=== PATIENT | male | born 1945 | race Caucasian/White ===

== ENCOUNTER 2019-01-09 04:40 | Inpatient (IN) ==
--- OUTSIDE RECORDS SUMMARY | 2019-01-09 04:44 | External Medical Summary | Continuity of Care Document ---
:1945 Author Name Sara Shin, Provider Address Unavailable Unavailable , Care Team Providers Name Role Phone Tee Pryor [email or web address] PCP, UNKNOWN Unavailable Unavailable Problems Active medical history not documented Allergies and Adverse Reactions Allergy history not documented Medications Medications not documented Procedures Procedures not documented Immunizations Immunizations not documented Plan of Treatment Planned Observations Planned Goals not documented Results No Known Results Results not documented
[2019-01-09] MEDS ORDERED: ALBUT/IPRATROP 3MG/0.5MG NEB 3 ML VIAL NEB STA (04:51)
--- NOTE | 2019-01-09 05:09 | Emergency Department Note ---
ED Visit Note This is a 73-year-old male patient who presents to the emergency department with chest pain over the past 3-4 hours. The patient presents with moderate shortness of breath and audible rales. The patient is currently receiving nebulizer treatment. He admits that he feels much more comfortable. Vital signs are stable. Laboratory studies are currently pending. The patient was seen in conjunction with Jakob Leigh PA-C. The patient will be further evaluated for inpatient care. .
[2019-01-09 05:21] LABS: Basophils # (auto) 0.02 K/uL (0-0.2); Basophils % (auto) 0.2 %; Eosinophils # (auto) 0.08 K/uL (0-0.5); Hematocrit (blood only) 36.4 % (42-52); Hemoglobin 12.6 g/dL (14.0-18.0); Immature Granulocytes # (auto) 0.02 K/uL (0.00-0.02); Immature Granulocytes % (auto) 0.2 %; Lymphocytes # (auto) 1.92 K/uL (1.2-3.4); Lymphocytes % (auto) 22.8 %; Mean Corpuscular Hemoglobin 31.3 pg (25-34); Mean Corpuscular Hgb Conc 34.6 g/dL (32-36); Mean Corpuscular Volume 90.3 fL (80-100); Mean Platelet Volume 9.2 fL (7.4-10.4); Monocytes # (auto) 0.61 K/uL (0.11-0.59); Monocytes % (auto) 7.2 %; Neutrophils # (auto) 5.77 K/uL (1.4-6.5); Neutrophils % (auto) 68.6 %; Platelet Count 233 K/uL (130-400); RDW Coefficient of Variation 13.6 % (11.5-14.5); RDW Standard Deviation 45.2 fL (36.4-46.3); Red Blood Count 4.03 M/uL (4.7-6.1); White Blood Count 8.42 K/uL (4.8-10.8)
--- NOTE | 2019-01-09 05:22 | Emergency Department Note ---
History of Present Illness General Chief complaint: Chest Pain Time Seen by Provider: 01/09/19 04:43 History of Present Illness Maximum Pain Intensity: 4 This is a 73-year-old male presenting to the emergency department with lower chest pain symptoms for the past 3 to 4 hours. The patient states his symptoms began when he was sleeping, and awoke him from sleep. The patient does not re port recent fevers or chills. He is a 2-1/2 pack/day smoker and is without new shortness of breath. He does not report any swelling or weight gain. The patient does arrive via EMS, and has been given 3 to 24 mg aspirin as well as 4 nitroglycerin. The patient evidently had improvement of his initial blood pressure that was over 200 systolic prehospital, but has not had significant improvement of his chest pain. He does describe this almost like a band in the upper abdomen, and rates his current discomfort a 4/10. It was originally a 5/10. He does not report recent travel history or known exposure to illness. The patient has not followed with his primary care physician for several years and is not on any current medications. Home Medications Home Medications Medication Instructions Recorded Confirmed Type [id number]-[id number]-lycopen-lutein 1 tab PO DAILY 01/09/19 01/09/19 History [Centrum Silver] Allergies Allergy/AdvReac Type Severity Reaction Status Date / Time No Known Allergies Allergy Verified 01/09/19 04:57 Past Med/Surg History Medical History Pancreatic lesion Emphysema of lung Portal hypertensive gastropathy (Chronic) History of gastritis (Chronic) History of ETOH abuse (Chronic) Tobacco use disorder (Chronic) Compression fx, lumbar spine (Chronic) Hyponatremia (Acute) NS being administered. Following BMP. Surgical History History of hernia repair (Chronic) Family History Father Colorectal cancer Mother Hypertension Breast cancer Social History Preferred Language: Peruvian Communication Ability: Effective Beliefs That Will Affect Care: None Current Living Situation: Family Current Living Situation Comment: lives with dtr Other Information That Helps Us Care for You: No Feels Safe at Home: Yes Safety Concerns: Feels Safe At This Time Smoking Status: Heavy tobacco smoker Tobacco Type: cigarettes ; Age Started Using Tobacco: 15 ; packs per day: 1.5 ; Years Smoked: 50 ; Cigarettes Per Day: 30-40 ; Tobacco Cessation Education Requested by Patient: No Hx Alcohol Use: Yes Hx Substance Use: No Review of Systems A total of 10 systems reviewed and were otherwise negative Physical Exam Vital Signs Vital Signs - 24 hr 01/09/19 04:40 01/09/19 05:01 01/09/19 05:41 Temperature 36.7 C Temperature Source Oral Sepsis Recent Fever Within 48 Hours No Sepsis New/Unexplained Change in Mental Status No Sepsis Action Taken by Nursing No Action Required Pulse Rate 97 H Pulse Rate [Right Radial] 89 90 Pulse Rhythm [Right Radial] Pulse Strength [Right Radial] Respiratory Rate 25 H 20 22 Respiratory Effort / Characteristics Non-Labored Spontaneous Respiratory Depth Respiratory Pattern Blood Pressure 109/88 Blood Pressure [Left Arm] Blood Pressure [Right Arm] 92/68 L Blood Pressure Mean 95 Blood Pressure Mean [Left Arm] Blood Pressure Mean [Right Arm] 76 Blood Pressure Position [Left Arm] Blood Pressure Position [Right Arm] Pulse Oximetry 97 95 92 Oxygen Delivery Method Room Air Room Air Room Air 01/09/19 06:53 01/09/19 08:35 01/09/19 09:07 Temperature Temperature Source Sepsis Recent Fever Within 48 Hours Sepsis New/Unexplained Change in Mental Status Sepsis Action Taken by Nursing Pulse Rate Pulse Rate [Right Radial] 88 86 85 Pulse Rhythm [Right Radial] Pulse Strength [Right Radial] Respiratory Rate 20 18 18 Respiratory Effort / Characteristics Non-Labored Spontaneous Respiratory Depth Respiratory Pattern Blood Pressure Blood Pressure [Left Arm] Blood Pressure [Right Arm] 137/80 146/78 H 129/91 Blood Pressure Mean Blood Pressure Mean [Left Arm] Blood Pressure Mean [Right Arm] 99 100 103 Blood Pressure Position [Left Arm] Blood Pressure Position [Right Arm] Lying Lying Pulse Oximetry 94 96 94 Oxygen Delivery Method Room Air Room Air Room Air 01/09/19 09:09 01/09/19 09:57 01/09/19 10:24 Temperature 36.6 C Temperature Source Oral Sepsis Recent Fever Within 48 Hours Sepsis New/Unexplained Change in Mental Status Sepsis Action Taken by Nursing Pulse Rate 89 Pulse Rate [Right Radial] 88 Pulse Rhythm [Right Radial] Regular Pulse Strength [Right Radial] Normal Respiratory Rate 22 24 Respiratory Effort / Characteristics Non-Labored Spontaneous Non-Labored Spontaneous SOB on Exertion Respiratory Depth Normal Normal Respiratory Pattern Regular Regular Blood Pressure 144/98 H Blood Pressure [Left Arm] Blood Pressure [Right Arm] 154/88 H Blood Pressure Mean Blood Pressure Mean [Left Arm] Blood Pressure Mean [Right Arm] 110 Blood Pressure Position [Left Arm] Blood Pressure Position [Right Arm] Lying Pulse Oximetry 95 93 Oxygen Delivery Method Room Air Room Air Room Air 01/09/19 11:05 01/09/19 14:58 01/09/19 15:09 Temperature 36.7 C Temperature Source Oral Sepsis Recent Fever Within 48 Hours Sepsis New/Unexplained Change in Mental Status Sepsis Action Taken by Nursing Pulse Rate Pulse Rate [Right Radial] 78 88 94 H Pulse Rhythm [Right Radial] Pulse Strength [Right Radial] Respiratory Rate 18 20 22 Respiratory Effort / Characteristics Non-Labored Spontaneous Non-Labored Spontaneous Respiratory Depth Respiratory Pattern Blood Pressure Blood Pressure [Left Arm] 113/71 Blood Pressure [Right Arm] Blood Pressure Mean Blood Pressure Mean [Left Arm] 85 Blood Pressure Mean [Right Arm] Blood Pressure Position [Left Arm] Lying Blood Pressure Position [Right Arm] Pulse Oximetry 93 93 99 Oxygen Delivery Method Room Air Room Air Room Air 01/09/19 19:10 01/09/19 19:17 Temperature 36.7 C Temperature Source Oral Sepsis Recent Fever Within 48 Hours Sepsis New/Unexplained Change in Mental Status Sepsis Action Taken by Nursing Pulse Rate 86 Pulse Rate [Right Radial] 84 Pulse Rhythm [Right Radial] Pulse Strength [Right Radial] Respiratory Rate 18 Respiratory Effort / Characteristics Non-Labored Respiratory Depth Normal Respiratory Pattern Regular Blood Pressure Blood Pressure [Left Arm] Blood Pressure [Right Arm] 161/84 H Blood Pressure Mean Blood Pressure Mean [Left Arm] Blood Pressure Mean [Right Arm] 109 Blood Pressure Position [Left Arm] Blood Pressure Position [Right Arm] Semi-fowlers Pulse Oximetry 96 Oxygen Delivery Method Room Air VITALS: Vitals are noted on the nurse's note and reviewed by myself. Vital signs stable. GENERAL: White male who is audible rails upon my entering into the room. He appears older than his stated age. HEAD: Normocephalic atraumatic. MOUTH: Mucous membranes moist. Tonsils are not enlarged. Pharynx without erythema, blood, or exudate. Uvula midline. Airway patent. NECK: Supple without nuchal rigidity. No lymphadenopathy. No thyromegaly. Cervical spine is nontender. HEART: Regular rate and rhythm without murmurs gallops or rubs. LUNGS: Distant breath sounds with crackles throughout. ABDOMEN: Positive normal bowel sounds x 4. Soft with mild epigastric tenderness MUSCULOSKELETAL: No muscle atrophy, erythema, or edema noted. Full range of m otion in all extremities. NEURO: Patient was alert and oriented to person place and time. CN II through XII grossly intact. Course Administered Medications Acetaminophen (Tylenol) 650 mg PO Q4H PRN PRN Reason: Pain or Fever Stop: 02/08/19 10:41 Last Admin: 01/09/19 15:34 Dose: 650 mg Documented by: [id number] Albuterol (Duoneb) 3 ml NEB Q4R JUSTYNA Stop: 02/08/19 10:59 Last Admin: 01/09/19 22:29 Dose: Not Given Documented by: [id number] Admin: 01/09/19 19:59 Dose: Not Given Documented by: [id number] Admin: 01/09/19 14:58 Dose: 3 ml Documented by: [id number] Admin: 01/09/19 11:05 Dose: 3 ml Documented by: [id number] Sodium Chloride (Nss 1000ml) 1,000 mls @ 110 mls/hr IV .Q9H6M JUSTYNA Stop: 02/08/19 10:41 Last Admin: 01/09/19 20:34 Dose: 100 mls/hr Documented by: [id number] Infusion: 01/09/19 20:34 Dose: 100 mls/hr Documented by: [id number] Admin: 01/09/19 11:40 Dose: 100 mls/hr Documented by: [id number] Lidocaine (Lidoderm 5%) 1 patch TD QAM JUSTYNA Stop: 02/08/19 11:44 Last Admin: 01/09/19 11:45 Dose: 1 patch Documented by: [id number] Miscellaneous (Remove Nicoderm Patch) 1 ea N/A HS JUSTYNA Stop: 02/08/19 20:59 Last Admin: 01/09/19 20:26 Dose: 1 ea Documented by: [id number] Miscellaneous (Remove Lidoderm Patch) 1 ea N/A DAILY@2100 JUSTYNA Stop: 02/08/19 20:59 Last Admin: 01/09/19 20:28 Dose: Not Given Documented by: [id number] Nicotine (Nicoderm Cq) 21 mg TD QAM JUSTYNA Stop: 02/08/19 10:41 Last Admin: 01/09/19 13:37 Dose: 21 mg Documented by: [id number] Cosigned by: [id number] Admin: 01/09/19 11:34 Dose: Not Given Documented by: [id number] Discontinued Medications Albuterol (Duoneb) 3 ml NEB NOW STA Stop: 01/09/19 04:52 Last Admin: 01/09/19 04:59 Dose: 3 ml Documented by: [id number] Acetaminophen (Ofirmev) 1,000 mg in 100 mls @ 400 mls/hr IV NOW STA Stop: 01/09/19 10:05 Last Admin: 01/09/19 10:57 Dose: Not Given Documented by: [id number] Ioversol (Optiray 320 125ml) 125 ml IV ONCE PRN PRN Reason: Interaction Checking Stop: 01/13/19 06:34 Last Admin: 01/09/19 06:35 Dose: 118 ml Documented by: [id number] Ioversol (Optiray 320 100ml) 93 ml IV ONCE PRN PRN Reason: Interaction Checking Stop: 01/13/19 07:35 Last Admin: 01/09/19 07:37 Dose: 93 ml Documented by: [id number] Lidocaine (Lidoderm 5%) 1 patch TD [facility] Stop: 02/08/19 10:41 Last Admin: 01/09/19 11:51 Dose: Not Given Documented by: [id number] Medical Decision Making Differential Diagnosis Differential diagnosis: Etiologies such as biliary colic, cholecystitis, hepatitis, pancreatitis, cardiac disease, pancreatitis, gastritis, peptic ulcer disease, appendicitis, cystitis, diverticulitis, mesenteric ischemia, inflammatory bowel disease, ileus, bowel obstruction, testicular/adnexal torsion, aortic pathology, shingles, as well as others were considered Laboratory Data Result diagrams: 01/09/19 04:48 01/09/19 04:48 Lab Results 01/09/19 01/09/19 01/09/19 Range/Units 04:48 04:48 04:48 WBC 8.42 (4.8-10.8) K/uL RBC 4.03 L (4.7-6.1) M/uL Hgb 12.6 L (14.0-18.0) g/dL Hct 36.4 L (42-52) % MCV 90.3 (80-100) fL MCH 31.3 (25-34) pg MCHC 34.6 (32-36) g/dL RDW Std Deviation 45.2 (36.4-46.3) fL RDW Coeff of Marga 13.6 (11.5-14.5) % Plt Count 233 (130-400) K/uL MPV 9.2 (7.4-10.4) fL Immature Gran % (Auto) 0.2 % Neut % (Auto) 68.6 % Lymph % (Auto) 22.8 % [place] % (Auto) 7.2 % Eos % (Auto) 1.0 % Baso % (Auto) 0.2 % Immature Gran # (Auto) 0.02 (0.00-0.02) K/uL Neut # (Auto) 5.77 (1.4-6.5) K/uL Lymph # (Auto) 1.92 (1.2-3.4) K/uL [place] # (Auto) 0.61 H (0.11-0.59) K/uL Eos # (Auto) 0.08 (0-0.5) K/uL Baso # (Auto) 0.02 (0-0.2) K/uL PT Cancelled INR Cancelled APTT Cancelled PTT Ratio Cancelled VBG pH (7.36-7.41) VBG pCO2 (38-50) mmHg VBG pO2 mmHg VBG HCO3 mmol/L VBG O2 Saturation % VBG Base Excess mEq/L Barometric Pressure mm/Hg Sodium 131 L (136-145) mmol/L Potassium 4.5 (3.5-5.1) mmol/L Chloride 95 L (98-107) mmol/L Carbon Dioxide 29 (21-32) mmol/L Anion Gap 7.0 (3-11) BUN 14 (7-18) mg/dl Creatinine 1.29 (0.6-1.4) mg/dl Est Cr Clr Drug Dosing 59.3 ml/min Est GFR ( Amer) 63.3 Est GFR (Non-Af Amer) 54.6 BUN/Creatinine Ratio 11.0 (10-20) Glucose 91 (70-99) mg/dl Calcium 8.8 (8.5-10.1) mg/dl Magnesium 2.3 (1.8-2.4) mg/dl Total Bilirubin 0.4 (0.2-1) mg/dl AST 13 L (15-37) U/L ALT 14 (12-78) U/L Alkaline Phosphatase 92 (45-117) U/L Troponin I < 0.015 (0-0.045) ng/ml NT-Pro-B Natriuret Pep 482 (0-900) pg/ml Total Protein 7.3 (6.4-8.2) gm/dl Albumin 3.6 (3.4-5.0) gm/dl Globulin 3.7 (2.5-4.0) gm/dl Albumin/Globulin Ratio 1.0 (0.9-2) Lipase 168 (73-393) U/L Procalcitonin (0-0.5) ng/ml TSH 2.310 (0.300-4.500) uIu/ml Urine Color Urine Appearance (Clear) Urine pH (4.5-7.5) Ur Specific [place] (1.000-1.030) Urine Protein (Negative) Urine Glucose (UA) (Negative) Urine Ketones (Negative) Urine Blood (Negative) Urine Nitrite (Negative) Urine Bilirubin (Negative) Urine Urobilinogen (Negative) Ur Leukocyte Esterase (Negative) Ethyl Alcohol mg/dL (0-3) mg/dl 01/09/19 01/09/19 01/09/19 Range/Units 04:48 04:59 04:59 WBC (4.8-10.8) K/uL RBC (4.7-6.1) M/uL Hgb (14.0-18.0) g/dL Hct (42-52) % MCV (80-100) fL MCH (25-34) pg MCHC (32-36) g/dL RDW Std Deviation (36.4-46.3) fL RDW Coeff of Marga (11.5-14.5) % Plt Count (130-400) K/uL MPV (7.4-10.4) fL Immature Gran % (Auto) % Neut % (Auto) % Lymph % (Auto) % [place] % (Auto) % Eos % (Auto) % Baso % (Auto) % Immature Gran # (Auto) (0.00-0.02) K/uL Neut # (Auto) (1.4-6.5) K/uL Lymph # (Auto) (1.2-3.4) K/uL [place] # (Auto) (0.11-0.59) K/uL Eos # (Auto) (0-0.5) K/uL Baso # (Auto) (0-0.2) K/uL PT 10.1 INR 1.0 APTT 31.0 PTT Ratio 1.1 VBG pH 7.36 (7.36-7.41) VBG pCO2 49 (38-50) mmHg VBG pO2 25 mmHg VBG HCO3 27 mmol/L VBG O2 Saturation < 60.0 % VBG Base Excess 1.0 mEq/L Barometric Pressure 734.9 mm/Hg Sodium (136-145) mmol/L Potassium (3.5-5.1) mmol/L Chloride (98-107) mmol/L Carbon Dioxide (21-32) mmol/L Anion Gap (3-11) BUN (7-18) mg/dl Creatinine (0.6-1.4) mg/dl Est Cr Clr Drug Dosing ml/min Est GFR ( Amer) Est GFR (Non-Af Amer) BUN/Creatinine Ratio (10-20) Glucose (70-99) mg/dl Calcium (8.5-10.1) mg/dl Magnesium (1.8-2.4) mg/dl Total Bilirubin (0.2-1) mg/dl AST (15-37) U/L ALT (12-78) U/L Alkaline Phosphatase (45-117) U/L Troponin I (0-0.045) ng/ml NT-Pro-B Natriuret Pep (0-900) pg/ml Total Protein (6.4-8.2) gm/dl Albumin (3.4-5.0) gm/dl Globulin (2.5-4.0) gm/dl Albumin/Globulin Ratio (0.9-2) Lipase (73-393) U/L Procalcitonin (0-0.5) ng/ml TSH (0.300-4.500) uIu/ml Urine Color Urine Appearance (Clear) Urine pH (4.5-7.5) Ur Specific [place] (1.000-1.030) Urine Protein (Negative) Urine Glucose (UA) (Negative) Urine Ketones (Negative) Urine Blood (Negative) Urine Nitrite (Negative) Urine Bilirubin (Negative) Urine Urobilinogen (Negative) Ur Leukocyte Esterase (Negative) Ethyl Alcohol mg/dL < 3.0 (0-3) mg/dl 01/09/19 01/09/19 01/09/19 Range/Units 07:00 08:00 11:04 WBC (4.8-10.8) K/uL RBC (4.7-6.1) M/uL Hgb (14.0-18.0) g/dL Hct (42-52) % MCV (80-100) fL MCH (25-34) pg MCHC (32-36) g/dL RDW Std Deviation (36.4-46.3) fL RDW Coeff of Marga (11.5-14.5) % Plt Count (130-400) K/uL MPV (7.4-10.4) fL Immature Gran % (Auto) % Neut % (Auto) % Lymph % (Auto) % [place] % (Auto) % Eos % (Auto) % Baso % (Auto) % Immature Gran # (Auto) (0.00-0.02) K/uL Neut # (Auto) (1.4-6.5) K/uL Lymph # (Auto) (1.2-3.4) K/uL [place] # (Auto) (0.11-0.59) K/uL Eos # (Auto) (0-0.5) K/uL Baso # (Auto) (0-0.2) K/uL PT INR APTT PTT Ratio VBG pH (7.36-7.41) VBG pCO2 (38-50) mmHg VBG pO2 mmHg VBG HCO3 mmol/L VBG O2 Saturation % VBG Base Excess mEq/L Barometric Pressure mm/Hg Sodium (136-145) mmol/L Potassium (3.5-5.1) mmol/L Chloride (98-107) mmol/L Carbon Dioxide (21-32) mmol/L Anion Gap (3-11) BUN (7-18) mg/dl Creatinine (0.6-1.4) mg/dl Est Cr Clr Drug Dosing ml/min Est GFR ( Amer) Est GFR (Non-Af Amer) BUN/Creatinine Ratio (10-20) Glucose (70-99) mg/dl Calcium (8.5-10.1) mg/dl Magnesium (1.8-2.4) mg/dl Total Bilirubin (0.2-1) mg/dl AST (15-37) U/L ALT (12-78) U/L Alkaline Phosphatase (45-117) U/L Troponin I < 0.015 (0-0.045) ng/ml NT-Pro-B Natriuret Pep (0-900) pg/ml Total Protein (6.4-8.2) gm/dl Albumin (3.4-5.0) gm/dl Globulin (2.5-4.0) gm/dl Albumin/Globulin Ratio (0.9-2) Lipase (73-393) U/L Procalcitonin < 0.05 (0-0.5) ng/ml TSH (0.300-4.500) uIu/ml Urine Color Yellow Urine Appearance Clear (Clear) Urine pH 5.5 (4.5-7.5) Ur Specific [place] > 1.045 H (1.000-1.030) Urine Protein Negative (Negative) Urine Glucose (UA) Negative (Negative) Urine Ketones Negative (Negative) Urine Blood Negative (Negative) Urine Nitrite Negative (Negative) Urine Bilirubin Negative (Negative) Urine Urobilinogen Negative (Negative) Ur Leukocyte Esterase Negative (Negative) Ethyl Alcohol mg/dL (0-3) mg/dl 01/09/19 Range/Units 16:47 WBC (4.8-10.8) K/uL RBC (4.7-6.1) M/uL Hgb (14.0-18.0) g/dL Hct (42-52) % MCV (80-100) fL MCH (25-34) pg MCHC (32-36) g/dL RDW Std Deviation (36.4-46.3) fL RDW Coeff of Marga (11.5-14.5) % Plt Count (130-400) K/uL MPV (7.4-10.4) fL Immature Gran % (Auto) % Neut % (Auto) % Lymph % (Auto) % [place] % (Auto) % Eos % (Auto) % Baso % (Auto) % Immature Gran # (Auto) (0.00-0.02) K/uL Neut # (Auto) (1.4-6.5) K/uL Lymph # (Auto) (1.2-3.4) K/uL [place] # (Auto) (0.11-0.59) K/uL Eos # (Auto) (0-0.5) K/uL Baso # (Auto) (0-0.2) K/uL PT INR APTT PTT Ratio VBG pH (7.36-7.41) VBG pCO2 (38-50) mmHg VBG pO2 mmHg VBG HCO3 mmol/L VBG O2 Saturation % VBG Base Excess mEq/L Barometric Pressure mm/Hg Sodium (136-145) mmol/L Potassium (3.5-5.1) mmol/L Chloride (98-107) mmol/L Carbon Dioxide (21-32) mmol/L Anion Gap (3-11) BUN (7-18) mg/dl Creatinine (0.6-1.4) mg/dl Est Cr Clr Drug Dosing ml/min Est GFR ( Amer) Est GFR (Non-Af Amer) BUN/Creatinine Ratio (10-20) Glucose (70-99) mg/dl Calcium (8.5-10.1) mg/dl Magnesium (1.8-2.4) mg/dl Total Bilirubin (0.2-1) mg/dl AST (15-37) U/L ALT (12-78) U/L Alkaline Phosphatase (45-117) U/L Troponin I < 0.015 (0-0.045) ng/ml NT-Pro-B Natriuret Pep (0-900) pg/ml Total Protein (6.4-8.2) gm/dl Albumin (3.4-5.0) gm/dl Globulin (2.5-4.0) gm/dl Albumin/Globulin Ratio (0.9-2) Lipase (73-393) U/L Procalcitonin (0-0.5) ng/ml TSH (0.300-4.500) uIu/ml Urine Color Urine Appearance (Clear) Urine pH (4.5-7.5) Ur Specific [place] (1.000-1.030) Urine Protein (Negative) Urine Glucose (UA) (Negative) Urine Ketones (Negative) Urine Blood (Negative) Urine Nitrite (Negative) Urine Bilirubin (Negative) Urine Urobilinogen (Negative) Ur Leukocyte Esterase (Negative) Ethyl Alcohol mg/dL (0-3) mg/dl Imaging Data Radiologist's Impression: CT ANGIOGRAPHY OF THE CHEST, PULMONARY EMBOLUS PROTOCOL CLINICAL HISTORY: Shortness of breath and chest pain. COMPARISON STUDY: Chest radiograph January 09, 2019. Chest CT July 14, 2012. TECHNIQUE: Following IV administration of Optiray-320, helical axial images of the chest were obtained utilizing the pulmonary embolus protocol. Maximal intensity projections and sagittal and coronal reformats were viewed on an independent 3D workstation. IV contrast was administered without complication. Automated exposure control was utilized for the study. A dose lowering technique was utilized adhering to the principles of ALARA. CT DOSE: 821.04 mGy.cm FINDINGS: This exam is significantly compromised by respiratory motion artifact and suboptimal vascular opacification. There is no large central pulmonary embolus. Remainder of the pulmonary arteries are inadequately assessed on this exam. The size of the heart is normal. There is no pericardial effusion. There is no thoracic aortic dissection. Extensive coronary artery calcification is noted. There is no pneumothorax or pleural effusion. Moderate emphysema is noted. There is no consolidation to suggest pneumonia. There are secretions within the trachea and proximal right mainstem bronchus. No central obstructing mass is identified. Old left-sided rib fractures are noted. There are no grissom spicious osseous lesions within the bony thorax. Note is made of multiple gallstones within visualized portions of the gallbladder, including a stone within the gallbladder neck. In addition, there is a cystic mass within the pancreatic tail that measures 4.4 x 2.7 cm. This contains several calcific ations. There are adjacent peripancreatic nodules that measure up to 3.3 x 1.6 cm. There is mild adjacent infiltration. IMPRESSION: 1. Exam significantly compromised by respiratory motion artifact and suboptimal vascular opacification. No central pulmonary embolus. Remainder of pulmonary arteries suboptimally assessed on this exam. 2. 4.4 x 2.7 cm cystic lesion within the pancreatic tail which contains several calcifications. Mild adjacent infiltration and fluid and a peripancreatic nodule that measures 2.3 x 1.6 cm. The appearance is nonspecific and differential considerations include a malignant cystic/mucinous pancreatic neoplasm with tumor implant. Alternatively, sequela of pancreatitis with developing pseudocyst could appear similar. A pancreatic protocol CT is recommended. 3. Moderate emphysema. 4. Cholelithiasis, including a stone within the gallbladder neck. Possible gallbladder distention. The gallbladder could be better assessed on follow-up CT. MDM Narrative Physical exam and history were performed. Nursing notes, EMR, and Medication List were personally reviewed. Patient appears to have some vague lower chest/upper abdominal pain bringing him to the ER. On examination he has audible rails from across the room. He does not have significant lower extremity edema, and does have crackles throughout. He is a longtime smoker and has not followed with his PCP in several years. He overall appears unhealthy. IV access was established and labs were obtained. EKG was performed. Chest x-ray was gathered. The patient was given a DuoNeb. The patient's blood work is as above and was reviewed. He does not have a significantly elevated white blood cell count. He is mildly anemic at 12.6. Lipase and transaminases are not diagnostic. Troponin x1 is negative. Urine is without evidence of infection. Chest x-ray was reviewed by myself and my attending, and does show some chronic findings. It is difficult to thoroughly evaluate the patient's symptoms her imaging, and CT angiogram was performed. CT angiogram does not show this pulmonary etiology of the patient's symptoms, however he does have findings within the gallbladder and the tail of the pancreas. These are poorly imaged on the angiogram, and CT scan of the pancreas was performed. CT scan of the pancreas was performed. The patient and family were updated multiple times throughout the course of stay. The patient remained in stable condition until the time of shift change. Case was discussed with Ralph Vázquez PA-C, at this time. The patient is pending results of the CT pancreas. I do have concern for the patient's overall well-being as he does not regularly follow with a PCP and likely has other unidentified comorbidities. Please see Mr. Vázquez's dictation for further patient course, plan, and disposition. The chart was completed utilizing [employer] Speech Voice Recognition Software. Grammatical errors, random word insertions, pronoun errors, and incomplete sentences are an occasional consequence of this system due to software limitations, ambient noise, and hardware issues. Any formal questions or concerns about the content, text, or information contained within the body of this dictation should be directly addressed to the provider for clarification. . Impression & Plan Atypical chest pain, Upper abdominal pain Discharge Plan Visit Data *Final* Discharge Date/Time: 01/09/19 09:57 Chief Complaint: Chest Pain ED Provider: Sharmila Huizar ED Midlevel Provider: Pritesh Vázquez Discharge Problem: Atypical chest pain, Upper abdominal pain Patient Disposition: Admitted As Inpatient Discharge Instructions Interventions: ED Discharge Assessment Last Done: 01/09/19 09:57
[2019-01-09 05:24] LABS: Alanine Aminotransferase 14 U/L (12-78); Albumin Level 3.6 gm/dl (3.4-5.0); Aspartate Aminotransferase 13 U/L (15-37); Blood Urea Nitrogen 14 mg/dl (7-18); Calcium 8.8 mg/dl (8.5-10.1); Carbon Dioxide 29 mmol/L (21-32); Chloride 95 mmol/L (98-107); Creatinine Clr Calc Pharmacy 59.3 ml/min; Est GFR (African American) 63.3; Est GFR (Non-African American) 54.6; Glucose 91 mg/dl (70-99); Lipase 168 U/L (73-393); Magnesium 2.3 mg/dl (1.8-2.4); Potassium 4.5 mmol/L (3.5-5.1); Sodium 131 mmol/L (136-145)
[2019-01-09 05:27] LABS: HCO3 VBG 27 mmol/L; PCO2 VBG 49 mmHg (38-50); PO2 VBG 25 mmHg; pH VBG 7.36 (7.36-7.41)
[2019-01-09 05:28] LABS: Oxygen Saturation VBG < 60.0 %
[2019-01-09 05:35] LABS: Alkaline Phosphatase 92 U/L (45-117); Bilirubin,Total 0.4 mg/dl (0.2-1); Globulin 3.7 gm/dl (2.5-4.0); NT Pro B Type Natriuretic Pept 482 pg/ml (0-900); Total Protein 7.3 gm/dl (6.4-8.2); Troponin I < 0.015 ng/ml (0-0.045)
[2019-01-09 05:50] LABS: Partial Thromboplastin Ratio 1.1; Prothrombin Time 10.1 Seconds (9.0-12.0)
[2019-01-09] MEDS ORDERED: OPTIRAY 320 125ml IV PRN (06:35)
--- NOTE | 2019-01-09 07:15 | CT Scan Report ---
CT ANGIOGRAPHY OF THE CHEST, PULMONARY EMBOLUS PROTOCOL CLINICAL HISTORY: Shortness of breath and chest pain. COMPARISON STUDY: Chest radiograph January 09, 2019. Chest CT July 14, 2012. TECHNIQUE: Following IV administration of Optiray-320, helical axial images of the chest were obtaine d utilizing the pulmonary embolus protocol. Maximal intensity projections and sagittal and coronal r eformats were viewed on an independent 3D workstation. IV contrast was administered without complica tion. Automated exposure control was utilized for the study. A dose lowering technique was utilized adhering to the principles of ALARA. CT DOSE: 821.04 mGy.cm FINDINGS: This exam is significantly compromised by respiratory motion artifact and suboptimal vascu lar opacification. There is no large central pulmonary embolus. Remainder of the pulmonary arteries a re inadequately assessed on this exam. The size of the heart is normal. There is no pericardial effus ion. There is no thoracic aortic dissection. Extensive coronary artery calcification is noted. There is no pneumothorax or pleural effusion. Moderate emphysema is noted. There is no consolidation to sug gest pneumonia. There are secretions within the trachea and proximal right mainstem bronchus. No cent ral obstructing mass is identified. Old left-sided rib fractures are noted. There are no suspicious o sseous lesions within the bony thorax. Note is made of multiple gallstones within visualized portions of the gallbladder, including a stone within the gallbladder neck. In addition, there is a cystic ma ss within the pancreatic tail that measures 4.4 x 2.7 cm. This contains several calcifications. There are adjacent peripancreatic nodules that measure up to 3.3 x 1.6 cm. There is mild adjacent infiltra tion. IMPRESSION: 1. Exam significantly compromised by respiratory motion artifact and suboptimal vascular opacificatio n. No central pulmonary embolus. Remainder of pulmonary arteries suboptimally assessed on this exam. 2. 4.4 x 2.7 cm cystic lesion within the pancreatic tail which contains several calcifications. Mild adjacent infiltration and fluid and a peripancreatic nodule that measures 2.3 x 1.6 cm. The appearanc e is nonspecific and differential considerations include a malignant cystic/mucinous pancreatic neopl asm with tumor implant. Alternatively, sequela of pancreatitis with developing pseudocyst could appea r similar. A pancreatic protocol CT is recommended. 3. Moderate emphysema. 4. Cholelithiasis, including a stone within the gallbladder neck. Possible gallbladder distention. Th e gallbladder could be better assessed on follow-up CT. Electronically signed by: Vickey Hunter M.D. 01/09/2019 7:14 AM
[2019-01-09 07:19] LABS: Appearance Urine Clear (Clear); Bilirubin Urine Negative (Negative); Blood Urine Negative (Negative); Color Urine Yellow; Glucose Urine UA Negative (Negative); Ketones Urine Negative (Negative); Leukocyte Esterase Urine Negative (Negative); Nitrite Urine Negative (Negative); Protein Urine Negative (Negative); Specific Gravity Urine > 1.045 (1.000-1.030); Urobilinogen Urine Negative (Negative); pH Urine 5.5 (4.5-7.5)
--- NOTE | 2019-01-09 07:31 | XRay Report ---
XR chest 1V portable HISTORY: Fever. Cough. COMPARISON: Chest 04/03/2013. FINDINGS: The lungs are clear. Cardiac silhouette is normal in size. No pleural effusions. No pneumot horax. IMPRESSION: No acute process. Electronically signed by: Jono Lechuga M.D. 01/09/2019 7:29 AM
[2019-01-09] MEDS ORDERED: IOVERSOL 100ml IV PRN (07:36)
--- NOTE | 2019-01-09 08:15 | CT Scan Report ---
CT pancreas 3-phase wo/w con HISTORY: atypical pancreas on chest ct. Has gallstone TECHNIQUE: Multiaxial CT images of the abdomen were performed both before and after the intravenous a dministration of contrast to evaluate the pancreas. COMPARISON STUDY: Abdomen and pelvis CT 04/01/2013. Chest CTA 01/09/2019. FINDINGS: Punctate calcified granuloma within the right lower lobe. No hepatic or splenic masses. Mul tiple gallstones are again noted. Dominant stone within the gallbladder neck measures 1.7 cm. The gal lbladder is mildly distended. There is no inflammatory change surrounding the gallbladder at this marline e. Moderate bilateral cortical renal scarring. No hydronephrosis. Residual contrast within the kidney s from the prior chest CTA. No retroperitoneal lymphadenopathy. A 3.1 cm infrarenal abdominal aortic aneurysm. Mild thickening within the proximal stomach. No evidence for bowel obstruction. No suspicio us lytic are blastic osseous lesions. Multiple compression deformities within the lower thoracic and upper lumbar spine most pronounced at L4 which demonstrates severe central compression. These are lizz hnically age indeterminate but likely old. Confirmation of the 3.0 x 2.2 cm low-density lesion within the pancreatic tail. This demonstrates a slightly thickened septation and small amount of peripheral calcification. There is also mild edema/inflammatory change surrounding the pancreatic tail. Lobular soft tissue nodule anterior and inferior to the pancreatic tail best seen on images 79 through 89. T his measures approximately 2.9 x 1.9 cm. Small amount of fluid/inflammatory change extending into the splenic hilum. IMPRESSION: 1. Redemonstration of the 3.0 x 2.2 cm cystic lesion within the pancreatic tail. This demonstrates a slightly thickened septation and a small amount of peripheral calcification. Therefore, this could re present a mucinous cystic tumor within the pancreas. In addition, this could represent a pancreatic p seudocyst. 2. Mild edema and inflammatory change surrounding the pancreatic tail and extending to the splenic hi lum which raises the possibility of superimposed acute pancreatitis. 3. A 2.9 x 1.0 cm lobular soft tissue nodule anterior and inferior to the pancreatic tail as describe d above. This is also nonspecific and could represent a metastatic focus if the pancreatic lesion rep resents a mucinous cystic tumor. 4. Cholelithiasis with a 1.7 cm gallstone in the neck of the gallbladder. The gallbladder is mildly d istended which has progressed. No surrounding inflammatory change. However, clinical correlation jaziel mmended to assess for a developing acute cholecystitis. 5. Additional findings as described above. Electronically signed by: Jono Lechuga M.D. 01/09/2019 8:14 AM
--- NOTE | 2019-01-09 08:39 | Emergency Department Note ---
ED Visit Note 73-year-old male, whose care was transferred to ct from Jakob Leigh PA-C at change of shift. The patient presents to emergency department with complaint of cough, shortness of breath and chest/upper abdominal pain that the patient reports feels like a band wrapping around his chest and abdomen. Symptoms developed suddenly this morning. The patient denies any other recent symptoms. At the time of transfer of care, a CT of the pancreas was ordered after a chest CT angiography was concerning for a pancreatic abnormality. At the time of transfer of care, initial troponin and ECG were normal. It is noted that the patient did have relief with nitroglycerin en route to the emergency department via [facility]. Labs were reviewed and were grossly normal, including LFTs and lipase. A repeat troponin and ECG continued to remain normal. CT of the pancreas was concerning for a gallstone within the gallbladder neck, as well as a pancreatic cyst versus mass. Radiologist report was reviewed: CT pancreas 3-phase wo/w con HISTORY: atypical pancreas on chest ct. Has gallstone TECHNIQUE: Multiaxial CT images of the abdomen were performed both before and after the intravenous administration of contrast to evaluate the pancreas. COMPARISON STUDY: Abdomen and pelvis CT 04/01/2013. Chest CTA 01/09/2019. FINDINGS: Punctate calcified granuloma within the right lower lobe. No hepatic or splenic masses. Multiple gallstones are again noted. Dominant stone within the gallbladder neck measures 1.7 cm. The gallbladder is mildly distended. There is no inflammatory change surrounding the gallbladder at this time. Moderate bilateral cortical renal scarring. No hydronephrosis. Residual contrast within the kidneys from the prior chest CTA. No retroperitoneal lymphadenopathy. A 3.1 cm infrarenal abdominal aortic aneurysm. Mild thickening within the proximal stomach. No evidence for bowel obstruction. No suspicious lytic are blastic osse ous lesions. Multiple compression deformities within the lower thoracic and upper lumbar spine most pronounced at L4 which demonstrates severe central compression. These are technically age indeterminate but likely old. Confirmation of the 3.0 x 2.2 cm low-density lesion within the pancreatic tail. This demonstrates a slightly thickened septation and small amount of peripheral calcification. There is also mild edema/inflammatory change surrounding the pancreatic tail. Lobular soft tissue nodule anterior and inferior to the pancreatic tail best seen on images 79 through 89. This measures approximately 2.9 x 1.9 cm. Small amount of fluid/inflammatory change extending into the splenic hilum. IMPRESSION: 1. Redemonstration of the 3.0 x 2.2 cm cystic lesion within the pancreatic tail. This demonstrates a slightly thickened septation and a small amount of peripheral calcification. Therefore, this could represent a mucinous cystic tumor within the pancreas. In addition, this could represent a pancreatic pseudocyst. 2. Mild edema and inflammatory change surrounding the pancreatic tail and extending to the splenic hilum which raises the possibility of superimposed acute pancreatitis. 3. A 2.9 x 1.0 cm lobular soft tissue nodule anterior and inferior to the pancreatic tail as described above. This is also nonspecific and could represent a metastatic focus if the pancreatic lesion represents a mucinous cystic tumor. 4. Cholelithiasis with a 1.7 cm gallstone in the neck of the gallbladder. The gallbladder is mildly distended which has progressed. No surrounding inflammatory change. However, clinical correlation recommended to assess for a developing acute cholecystitis. 5. Additional findings as described above. Upon reevaluation, the patient reported minimal chest pain. At this point, I did discuss the case further with Dr. Merritt, [facility] hospitalist, who recommended speaking with the [facility] glass designer to see if he would consider stress testing the patient. I then spoke with Dr. Azevedo who indicated that he would not want to do a stress test with the patient's current shortness of breath. He is recommending hospitalist admission, and he would perform a stress test tomorrow morning. I rediscussed the case further with Dr. Merritt,, who will further reevaluate the patient. Please see hospitalist and glass designer dictations for further treatment and final disposition. I also suspect gastroenterology and surgical consultation as well given additional CT findings. MEDICAL DECISION MAKING: The patient presents to emergency department with complaint of chest and upper abdominal pain with a bandlike sensation. His initial work-up is not suggestive of an STEMI, CHF, pneumonia, pulmonary embolus or pneumothorax. Laboratory studies were reviewed and were grossly unremarkable. I do feel that the patient warrants cardiac rule out. Pain could also be secondary to biliary colic, with CT imaging showing a gallstone within the neck of the gallbladder, and mild gallbladder thickening. DIAGNOSIS: 1. Chest pain 2. Shortness of breath 3. Pancreatic lesion 4. Cholelithiasis
[2019-01-09] MEDS ORDERED: ACETAMINOPHEN 1,000 MG/100 ML VIAL IV STA (09:51)
--- NOTE | 2019-01-09 10:22 | History & Physical Report ---
Date of Service January 09, 2019 Assessment & Plan (1) Chest pain: This is a 73 yr old M who has significant PMH of tobacco abuse and hx of ETOH abuse who presents to [facility] ED secondary to chest pain x 1 week. Pain localized to R anterior/inferior rib as well as RUQ. Worse with deep breat arvind/cough. ECG w/o ST T wave changes, vitals stable, trop negative x 2. Given hx feel cardiac source less likely Concern for R rib fx/ligament injury, costochondritis, Choledocholithiasis, cholecystitis, pancreatitis CBC and CMP mostly unremarkable except H/H 12.6/36.4, NA 131, urine okay admit to PCU obtain RUQ U/S consult GI given findings on pancreatic CT also concern for possible GI etiology of pain Dedicated R rib film r/o fx place on APAP 650mg QID, lidocaine patch toradol prn for pain check fasting lipid panel, A1C (2) Hyponatremia: IVF NS 110cc/hr follow bmp (3) Pancreatic lesion: Pancreas CT: Redemonstration of the 3.0 x 2.2 cm cystic lesion within the pancreatic tail. This demonstrates a slightly thickened septation and a small amount of peripheral calcification. Therefore, this could represent a mucinous cystic tumor within the pancreas. In addition, this could represent a pancreatic pseudocyst. 2. Mild edema and inflammatory change surrounding the pancreatic tail and extending to the splenic hilum which raises the possibility of superimposed acute pancreatitis. 3. A 2.9 x 1.0 cm lobular soft tissue nodule anterior and inferior to the pancreatic tail as described above. This is also nonspecific and could represent a metastatic focus if the pancreatic lesion represents a mucinous cystic tumor. 4. Cholelithiasis with a 1.7 cm gallstone in the neck of the gallbladder. The gallbladder is mildly distended which has progressed. No surrounding inflammatory change. However, clinical correlation recommended to assess for a developing acute cholecystitis. Lipase WNL, w/o significant epigastric tenderness feel acute pancreatitis less likely Consult GI for further input place on clear liquid diet until seen by GI (4) Emphysema of lung: noted on chest CT tobacco abuse for 50 years 1.5-2ppd no acute exacerbation at this time pulmonary toilet with Duoneb tx QID Chest PT/Flutter valve incentive spirometry check procalcitonin (5) Tobacco use disorder: nicotine patch ordered smoking cessation encouraged (6) DVT prophylaxis: SCD/TEDS, Lovenox Disposition: Admit to PCU Follow up: PCP Dr. Spaulding upon discharge - per family patient does not see Dr. Spaulding regularly. Would recommend routine follow up. Patient was seen and examined in collaboration with Dr. Merritt, please see addendum History of Present Illness Chief Complaint: Chest pain x 1 week. Primary Care Provider: Jeffry Spaulding MD This is a 73 yr old M who has significant past medical history of tobacco abuse and hx of ETOH abuse who presents to [facility] ED secondary to chest pain x 1 week. Chest pain awoke pt from sleep this morning at 3:45am. Daughter and son in law at bedside. Described pain as constant with intermittent stabbing, located R chest wall and epigastric area, worse with coughing and deep breath, non rad iating, not exertional. No recent injury or fall. Does not recall any heavy lifting. Has hx of smoking since 15 at 1.5-2ppd. Complains of QUINONEZ but attributes this to his smoking. Walking short distances causes him to be sob. He denies SOB at rest. Has chronic moist cough, recently unable to expectorate. Denies f/c/s, dizziness, lightheaded, palpitations, hemopytsis, n/v/d, melena, hematochezia, increased urgency/freq, hematuria. Unsure if pain worse with meals but did have ice cream at approx 12am. Per family appetite is mostly poor and he mostly snacks and drinks diet pepsi. No known weight loss or gain. Pt has prior hx of heavy ETOH abuse with gallon of Black velvet daily for many years. Quit drinking 07/2012 after hospitalization. Hospitalized 07/2012 for Sepsis, UTI, encephalopathy, findings concerning for cirrhosis. During this admission he had CT abd/pelvis which noted a 1.9cm cystic lesion at pancreatic neck. Follow up CT as outpt on 02/2013 revealed resolution of cyst felt to be related to pancreatitis. Allergies Allergy/AdvReac Type Severity Reaction Status Date / Time No Known Allergies Allergy Verified 01/09/19 04:57 Home Medications Home Medications Medication Instructions Recorded Confirmed Type Centrum Silver 1 tab PO DAILY 01/09/19 01/09/19 History budesonide-formoterol [Symbicort] 2 puff INHALATION BID 30 Days #1 01/11/19 Rx device ipratropium-albuterol [Combivent 1 puffs INH Q6H PRN #4 gm 01/11/19 Rx Respimat] nicotine [Nicoderm CQ] 21 mg TRANSDERMAL QAM 30 Days #30 01/11/19 Rx ea prednisone 10 mg PO UD #30 tab 01/11/19 Rx Past Med/Surg History Medical History Pancreatic lesion Emphysema of lung Portal hypertensive gastropathy (Chronic) History of gastritis (Chronic) History of ETOH abuse (Chronic) Tobacco use disorder (Chronic) Compression fx, lumbar spine (Chronic) Hyponatremia (Acute) NS being administered. Following BMP. Surgical History History of hernia repair (Chronic) Family History Father Colorectal cancer Mother Hypertension Breast cancer Social History Preferred Language: Wolof Communication Ability: Effective Beliefs That Will Affect Care: None Current Living Situation: Family Current Living Situation Comment: lives with dtr Feels Safe at Home: Yes Smoking Status: Heavy tobacco smoker Tobacco Type: cigarettes ; Age Started Using Tobacco: 15 ; packs per day: 1.5 ; Cigarettes Per Day: 30-40 ; Hx Alcohol Use: Yes Hx Substance Use: No Review of Systems Review of Systems: All systems reviewed & are unremarkable except as noted in HPI & below Physical Exam Physical Exam: Constitutional: Chronically ill appearing, unkempt, vitals as above, NAD, sitting up in bed, +pain with deep inspiration, pleasant, conversing easily Head: Normocephalic, Atraumatic Eyes: PERRL, conjunctivae normal, anicteric sclerae ENMT: external ear and nose normal, oropharynx dry Neck: trachea midline, no thyromegaly normal visual inspection Respiratory: normal respiratory effort, pain with inspiration, lungs clear to auscultation, +wheeze/rhonchi throughout not clearance with coughing, no rales. Normal insp/exp effort, no accessory muscle use, +pain to palpation pinpoint R lower anterior rib Cardiovascular: RRR, no murmur, no edema Vessels: no JVD or carotid bruit Chest: normal inspection of chest Abdomen: normal bowel sounds, soft, nontender, + hepatomegaly, +pain to palpation RUQ, no ordonez's sign, rosving, rigidity or guarding Musculoskeletal: no cyanosis or clubbing, extremities motor strength 5/5 Skin: no rashes, warm and dry normal turgor Neurologic: PERRL, EOMI, accommodation nl, no face palsy, no dysarthria CN's II-XI intact bilaterally and moves all extremities Psychiatric: A+Ox3, euthymic affect : deferred Results & Data Vital Signs (Past 12 Hours) Vital Signs Temp Pulse Pulse Resp BP BP Pulse Ox 01/09/19 09:57 89 22 144/98 H 95 01/09/19 09:07 85 18 129/91 94 01/09/19 08:35 86 18 146/78 H 96 01/09/19 06:53 88 20 137/80 94 01/09/19 05:41 90 22 92/68 L 92 01/09/19 05:01 89 20 95 01/09/19 04:40 36.7 C 97 H 25 H 109/88 97 Laboratory Results Short CBC 01/09/19 01/09/19 01/09/19 Range/Units 04:48 04:48 08:00 WBC 8.42 (4.8-10.8) K/uL Hgb 12.6 L (14.0-18.0) g/dL Hct 36.4 L (42-52) % Plt Count 233 (130-400) K/uL Troponin I < 0.015 < 0.015 (0-0.045) ng/ml BMP 01/09/19 04:48 Sodium 131 L Potassium 4.5 Chloride 95 L Carbon Dioxide 29 BUN 14 Creatinine 1.29 Glucose 91 Calcium 8.8 Cardiac Enzymes 01/09/19 01/09/19 Range/Units 04:48 08:00 Troponin I < 0.015 < 0.015 (0-0.045) ng/ml Liver Function 01/09/19 Range/Units 04:48 Total Bilirubin 0.4 (0.2-1) mg/dl AST 13 L (15-37) U/L ALT 14 (12-78) U/L Alkaline Phosphatase 92 (45-117) U/L Albumin 3.6 (3.4-5.0) gm/dl Urine 01/09/19 Range/Units 07:00 Urine Color Yellow Urine Appearance Clear (Clear) Urine pH 5.5 (4.5-7.5) Ur Specific Diamond > 1.045 H (1.000-1.030) Urine Protein Negative (Negative) Urine Glucose (UA) Negative (Negative) Diagnostic Findings Abd U/S: 1. Cholelithiasis with a 9 mm stone at the gallbladder neck. The gallbladder is distended. However, there is no bladder wall thickening at this time. 2. The pancreas is obscured by overlying bowel gas. Pancreas CT: 1. Redemonstration of the 3.0 x 2.2 cm cystic lesion within the pancreatic tail. This demonstrates a slightly thickened septation and a small amount of peripheral calcification. Therefore, this could represent a mucinous cystic tumor within the pancreas. In addition, this could represent a pancreatic pseudocyst. 2. Mild edema and inflammatory change surrounding the pancreatic tail and extending to the splenic hilum which raises the possibility of superimposed acute pancreatitis. 3. A 2.9 x 1.0 cm lobular soft tissue nodule anterior and inferior to the pancreatic tail as described above. This is also nonspecific and could represent a metastatic focus if the pancreatic lesion represents a mucinous cystic tumor. 4. Cholelithiasis with a 1.7 cm gallstone in the neck of the gallbladder. The gallbladder is mildly distended which has progressed. No surrounding inflammatory change. However, clinical correlation recommended to assess for a developing acute cholecystitis. 5. Additional findings as described above. Chest CTA: IMPRESSION: 1. Exam significantly compromised by respiratory motion artifact and suboptimal vascular opacification. No central pulmonary embolus. Remainder of pulmonary arteries suboptimally assessed on this exam. 2. 4.4 x 2.7 cm cystic lesion within the pancreatic tail which contains several calcifications. Mild adjacent infiltration and fluid and a peripancreatic nodule that measures 2.3 x 1.6 cm. The appearance is nonspecific and differential considerations include a malignant cystic/mucinous pancreatic neoplasm with tumor implant. Alternatively, sequela of pancreatitis with developing pseudocyst could appear similar. A pancreatic protocol CT is recommended. 3. Moderate emphysema. 4. Cholelithiasis, including a stone within the gallbladder neck. Possible gallbladder distention. The gallbladder could be better assessed on follow-up CT. CXR: IMPRESSION: No acute process. Medications Administered Discontinued Medications Albuterol (Duoneb) 3 ml NEB NOW STA Stop: 01/09/19 04:52 Last Admin: 01/09/19 04:59 Dose: 3 ml Documented by: [id number] Ioversol (Optiray 320 125ml) 125 ml IV ONCE PRN PRN Reason: Interaction Checking Stop: 01/13/19 06:34 Last Admin: 01/09/19 06:35 Dose: 118 ml Documented by: [id number] Ioversol (Optiray 320 100ml) 93 ml IV ONCE PRN PRN Reason: Interaction Checking Stop: 01/13/19 07:35 Last Admin: 01/09/19 07:37 Dose: 93 ml Documented by: [id number] ECG Rate (beats per minute): 94 Rhythm: normal sinus Code Status & VTE Plan Code Status Full Code VTE Prophylaxis Plan VTE Prophylaxis will be ordered: Yes Supervising Physician Co-Signing Physician Notes Pt was seen and examined. Agreed with Jes SOW exam, assessment and plan. 73 yr old M who has significant past medical history of tobacco abuse and hx of ETOH abuse who presents to [facility] ED secondary to chest pain. Most of the history obtained from daughter due to patient dementia. Describes chest pain as stab juan, located in the right chest wall area and worsening with coughing. Daughter said that patient fell few weeks ago. Troponin x2 negative on admission. EKG showed no ischemic changes. CT showed 4.4 x 2.7 cm cystic lesion within the pancreatic tail which contains several calcifications. Mild adjacent infiltration and fluid and a peripancreatic nodule that measures 2.3 x 1.6 cm. Xray of the ribs showed subacute to chronic fractures of the anterolateral right sixth through ninth ribs. Continue pain control. GI consult for the lesion pancreatic in the pancreatic tail. PT/OT eval. Fall precaution and incentive spirometry. Continue monitor closely. MD René
--- NOTE | 2019-01-09 10:31 | Ultrasound Report ---
ABDOMINAL ULTRASOUND, RIGHT UPPER QUADRANT HISTORY: Liver, gallbladder, pancreas, bile duct. COMPARISON: Abdominal CT 01/09/2019. FINDINGS: Pancreas: Obscured by overlying bowel gas. Liver: Mildly enlarged measuring 19 cm in length. No hepatic masses. Gallbladder: No gallbladder wall thickening. A few gallstones identified. There is a 9 mm stone at th e gallbladder neck. The gallbladder is mildly distended. No pericholecystic fluid. CBD: Upper limits of normal measuring 6 mm. Right kidney: No hydronephrosis. IMPRESSION: 1. Cholelithiasis with a 9 mm stone at the gallbladder neck. The gallbladder is distended. However, t here is no bladder wall thickening at this time. 2. The pancreas is obscured by overlying bowel gas. Electronically signed by: Jono Lechuga M.D. 01/09/2019 10:30 AM
[2019-01-09] MEDS ORDERED: ACETAMINOPHEN 325 MG TAB PO PRN (10:42)
[2019-01-09] MEDS ORDERED: NITROGLYCERIN SL 0.4 MG/TAB TAB SL PRN (10:42)
[2019-01-09] MEDS ORDERED: MAGNESIUM HYDROXIDE SUSP 30 ML UDC PO PRN (10:42)
[2019-01-09] MEDS ORDERED: LIDOCAINE 5% 1 PATCH TD SCH (10:42)
[2019-01-09] MEDS ORDERED: ONDANSETRON INJ 2 MG/ML 2 ML VIAL IV PRN (10:42)
[2019-01-09] MEDS ORDERED: POLYETHYLENE (MIRALAX) 17 GM PACK PO PRN (10:42)
[2019-01-09] MEDS ORDERED: ALUMINUM/MAGNESIUM SUSP 30 ML UDC PO PRN (10:42)
[2019-01-09] MEDS ORDERED: KETOROLAC TROMETHAMINE 15 MG/ML VIAL IV PRN (11:01)
[2019-01-09] MEDS: ALBUT/IPRATROP 3MG/0.5MG NEB 3 ML VIAL NEB SCH ×4 (11:05→22:29)
[2019-01-09] MEDS: NICOTINE 21 MG/24 HR TDSY TD SCH ×2 (11:34→13:37)
[2019-01-09] MEDS: SODIUM CHLORIDE 0.9% 1000ML 1,000 ML IV SCH ×2 (11:40→20:34)
[2019-01-09] MEDS: LIDOCAINE 5% 1 PATCH TD SCH (11:45)
--- NOTE | 2019-01-09 12:47 | XRay Report ---
XR ribs RT min 2V CLINICAL HISTORY: 73 years-old Male presenting with R rib pain. TECHNIQUE: Frontal and oblique views of the right ribs were obtained. COMPARISON: Chest x-ray from 04/03/2013. FINDINGS: Osteopenia. Subacute to chronic fractures of the anterolateral right sixth through ninth ribs. No dis placed acute appearing right rib fracture.. Excreted contrast noted in the urinary collecting systems . Moderate stool burden. Gaseous distention of colon. Visualized portion of the lungs clear. IMPRESSION: Subacute to chronic fractures of the anterolateral right sixth through ninth ribs. No acute appearing fracture allowing for the severity of osteopenia. Electronically signed by: Mayank Marquez M.D. 01/09/2019 12:45 PM
[2019-01-09] MEDS ORDERED: ACETAMINOPHEN 325 MG TAB PO SCH (13:00)
--- NOTE | 2019-01-09 13:27 | Gastrointestinal Consultation ---
Date of Consultation January 09, 2019 Assessment & Plan (1) Pancreatic lesion: Pt is a 73 y/o male seen for incidentally found pancreas tail lesion, soft tissue nodule near it and gallbladder neck stone in his radiology studies today during his workup for RUQ abd and chest pains. LFTs and Lipase normal. Hx of ETOH pancreatitis back in 2012. Pancreas cyst noted back then but had resolved upon outpt f/u. He had been sober since 2012. - Discussed radiology findings w pt and family. Would recommend further workup w outpt EGD/EUS w [facility]NA which we can help set up. - Continue abstaining from ETOH - Consider Surgery eval given gallbladder neck stone ? cholecystectomy candidate Supervising Physician Co-Signing Physician Notes I saw and evaluated the patient. He presents with a history of discomfort and was found to have doctors on recent examination. Of note the CT scan does show evidence of cholelithiasis in addition to a large pancreatic tail cyst. The patient does have a history of alcohol abuse and a prior history of pancreatitis. Today the patient notes that he is feeling improved. Physical examination No obvious distress No scleral icterus Mild epigastric tenderness and tenderness in the right rib cage Impression: Patient with a history of discomfort likely related to his recent rib fractures. Of note the patient was found to have a large pancreatic tail cyst and further evaluation with endoscopic ultrasound may be of benefit to determine if this is a precancerous lesion. The patient his family and I have discussed the risks of the procedure to include bleeding, infection, perforatio n, infection, pancreatitis and need for follow-up studies. Plan Upper endoscopy with endoscopic ultrasound to be arranged Please hold Lovenox in the morning N.p.o. at midnight please History of Present Illness Reason for Consultation: Pancreas lesion Requesting Physician: Dr. Lio Merritt Attending Physician: Dr. Shannon Sow History of Present Illness Pt is a 73 y/o male who presented w c/o RUQ abd pain and mid chest pain x 1 week. He has associated productive cough. Denies any fever, chills. + mild nausea but no vomiting. Denies any bowel habit changes. He smokes 1.5 to 2 PPD. 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 Denies other illicit drug/marijuana uses. On evaluation, cardiac enzymes negative. CT chest obtained which showed no signs of PE, + emphysema. Incidentally noted was pancreas tail lesion. This was further evaluated by pancreas CT and abd u/s; found to have 3x2.2 cm cystic lesion in pancreas tail, w thickened septation and peripheral calcification ? mucinous cystic tumor vs pseudocyst. A 2.9 x 1 cm soft tissue nodule anterior and inferior to pancreas tail is also noted. + cholelithiasis w 1.7cm gallstone is present in gallbladder neck. There's pancreatic tail and splenic hilum edema and inflammatory changes. His LFTs, lipase are normal. Of note, he has subacute to chronic R rib fractures as well. Chart review showed that pt did have pancreas cyst noted in 2013 imaging but this has resolved upon f/u in outpt pancreas CT perhaps related to his pancreatitis episode then. Allergies Allergy/AdvReac Type Severity Reaction Status Date / Time No Known Allergies Allergy Verified 01/09/19 04:57 Home Medications Home Medications Medication Instructions Recorded Confirmed Type nfequhfv-lud-XJ-lycopen-lutein 1 tab PO DAILY 01/09/19 01/09/19 History [Centrum Silver] Patient History Medical History Portal hypertensive gastropathy (Chronic) History of gastritis (Chronic) History of ETOH abuse (Chronic) Tobacco use disorder (Chronic) Compression fx, lumbar spine (Chronic) Surgical History History of hernia repair (Chronic) Family History Father Colorectal cancer Mother Hypertension Breast cancer Social History Preferred Language: Estonian Communication Ability: Effective Beliefs That Will Affect Care: None Current Living Situation: Family Current Living Situation Comment: lives with dtr Other Information That Helps Us Care for You: No Feels Safe at Home: Yes Safety Concerns: Feels Safe At This Time Smoking Status: Heavy tobacco smoker Tobacco Type: cigarettes ; Age Started Using Tobacco: 15 ; packs per day: 1.5 ; Years Smoked: 50 ; Cigarettes Per Day: 30-40 ; Tobacco Cessation Education Requested by Patient: No Hx Alcohol Use: Yes Hx Substance Use: No Review of Systems Review of Systems: All systems reviewed & are unremarkable except as noted in HPI & below Physical Exam Constitutional: WD/WN, vitals as above well groomed, cooperative and comfortable Eyes: PERRL, conjunctivae normal, anicteric sclerae ENMT: external ear and nose normal, oropharynx normal Respiratory: normal respiratory effort, lungs clear to auscultation Cardiovascular: RRR, no murmur, no edema Gastrointestinal (Abdomen): Inspection/Auscultation: normal bowel sounds Percussion/Palpation: + abdomen tender (ruq ) and abdomen soft Skin: no rashes, warm and dry no jaundice Neurologic: Motor/Sensory: no asterixis Psychiatric: A+Ox3, euthymic affect Lymphatic: no lymphedema Results & Data Vital Signs (Past 12 Hours) Vital Signs Temp Pulse Pulse Resp BP BP Pulse Ox 01/09/19 11:05 78 18 93 01/09/19 10:24 36.6 C 88 24 154/88 H 93 01/09/19 09:57 89 22 144/98 H 95 01/09/19 09:07 85 18 129/91 94 01/09/19 08:35 86 18 146/78 H 96 01/09/19 06:53 88 20 137/80 94 01/09/19 05:41 90 22 92/68 L 92 01/09/19 05:01 89 20 95 01/09/19 04:40 36.7 C 97 H 25 H 109/88 97
--- NOTE | 2019-01-09 16:15 | Anesthesiology Consultation ---
Date of Service January 09, 2019 Assessment & Plan (1) Encounter for pre-operative examination: Chart Review Chart Review: Acceptable Risk for Surgery and Patient NOT seen in Pre Admission Testing Consults Requested none History Surgery Operation Date: 01/10/19 10:20 Proposed Procedures p Upper Endoscopic Ultrasonography with - Shannon Sow s Esophagogastroduodenoscopy - Shannon Sow Height/Weight Height: 6 ft 2 in Weight: 86.7 kg Allergies Allergy/AdvReac Type Severity Reaction Status Date / Time No Known Allergies Allergy Verified 01/09/19 04:57 Medications Home Medications Medication Instructions Recorded Confirmed Last Taken jrqvheyq-hld-LB-lycopen-lutein 1 tab PO DAILY 01/09/19 01/09/19 01/08/19 [Centrum Silver] Active Medications Generic Name Dose Route Start Last Admin Trade Name Freq PRN Reason Stop Dose Admin Acetaminophen 650 mg 01/09/19 10:42 01/09/19 15:34 Tylenol PO 02/08/19 10:41 650 mg Q4H PRN Administration Pain or Fever Albuterol 3 ml 01/09/19 11:00 01/09/19 14:58 Duoneb NEB 02/08/19 10:59 3 ml Q4R JUSTYNA Administration Sodium Chloride 1,000 mls @ 110 mls/hr 01/09/19 10:42 01/09/19 11:40 Nss 1000ml IV 02/08/19 10:41 100 mls/hr .Q9H6M JUSTYNA Administration Lidocaine 1 patch 01/09/19 11:45 01/09/19 11:45 Lidoderm 5% TD 02/08/19 11:44 1 patch QAM JUSTYNA Administration Nicotine 21 mg 01/09/19 10:42 01/09/19 13:37 Nicoderm Cq TD 02/08/19 10:41 21 mg QAM JUSTYNA Administration Past Medical History Medical History Pancreatic lesion Emphysema of lung Portal hypertensive gastropathy (Chronic) History of gastritis (Chronic) History of ETOH abuse (Chronic) Tobacco use disorder (Chronic) Compression fx, lumbar spine (Chronic) Hyponatremia (Acute) NS being administered. Following BMP. Past Family History Family History Father Colorectal cancer Mother Hypertension Breast cancer Past Surgical History Surgical History History of hernia repair (Chronic) Social History Smoking Status: Heavy tobacco smoker tobacco type: cigarettes Smoking cigarettes per day: 30-40 Hx Alcohol Use: Yes Hx Substance Use: No Physical Exam Vital Signs Last Vital Signs Temp 36.7 C 01/09/19 15:09 Pulse 94 H 01/09/19 15:09 Resp 22 01/09/19 15:09 BP 113/71 01/09/19 15:09 Pulse Ox 99 01/09/19 15:09 Testing Laboratory Results 01/09/19 04:48 01/09/19 04:48 PT 10.1 Seconds (9.0-12.0) 01/09/19 04:48 PT Cancelled 01/09/19 04:48 INR 1.0 (0.9-1.1) 01/09/19 04:48 INR Cancelled 01/09/19 04:48 APTT 31.0 Seconds (21.0-31.0) 01/09/19 04:48 APTT Cancelled 01/09/19 04:48 Urine Color Yellow 01/09/19 07:00 Urine Appearance Clear (Clear) 01/09/19 07:00 Urine pH 5.5 (4.5-7.5) 01/09/19 07:00 Ur Specific [place] > 1.045 (1.000-1.030) H 01/09/19 07:00 Urine Protein Negative (Negative) 01/09/19 07:00 Urine Glucose (UA) Negative (Negative) 01/09/19 07:00 Urine Ketones Negative (Negative) 01/09/19 07:00 Urine Nitrite Negative (Negative) 01/09/19 07:00 Ur Leukocyte Esterase Negative (Negative) 01/09/19 07:00 Electrocardiogram Date: 01/09/19 Findings: + NSR @ (88) Normal ECG. Chest X-Ray Date: 01/09/19 XR chest 1V portable HISTORY: Fever. Cough. COMPARISON: Chest 04/03/2013. FINDINGS: The lungs are clear. Cardiac silhouette is normal in size. No pleural effusions. No pneumothorax. IMPRESSION: No acute process.
[2019-01-10] MEDS: ALBUT/IPRATROP 3MG/0.5MG NEB 3 ML VIAL NEB SCH ×6 (02:56→23:19)
[2019-01-10 06:36] LABS: Basophils # (auto) 0.03 K/uL (0-0.2); Basophils % (auto) 0.4 %; Eosinophils # (auto) 0.03 K/uL (0-0.5); Eosinophils % (auto) 0.4 %; Hematocrit (blood only) 30.9 % (42-52); Hemoglobin 10.6 g/dL (14.0-18.0); Immature Granulocytes # (auto) 0.03 K/uL (0.00-0.02); Immature Granulocytes % (auto) 0.4 %; Lymphocytes # (auto) 1.21 K/uL (1.2-3.4); Mean Corpuscular Hemoglobin 30.7 pg (25-34); Mean Corpuscular Hgb Conc 34.3 g/dL (32-36); Mean Corpuscular Volume 89.6 fL (80-100); Mean Platelet Volume 8.6 fL (7.4-10.4); Monocytes # (auto) 0.55 K/uL (0.11-0.59); Monocytes % (auto) 7.3 %; Neutrophils # (auto) 5.69 K/uL (1.4-6.5); Neutrophils % (auto) 75.5 %; Platelet Count 205 K/uL (130-400); RDW Coefficient of Variation 13.7 % (11.5-14.5); RDW Standard Deviation 45.4 fL (36.4-46.3); Red Blood Count 3.45 M/uL (4.7-6.1); White Blood Count 7.54 K/uL (4.8-10.8)
[2019-01-10 06:45] LABS: Estimated Average Glucose 105 mg/dl; Hemoglobin A1C 5.3 % (4.5-5.6)
[2019-01-10 07:00] LABS: Albumin Level 2.9 gm/dl (3.4-5.0); BUN Creatinine Ratio 10.1 (10-20); Calcium 8.4 mg/dl (8.5-10.1); Creatinine Clr Calc Pharmacy 76.5 ml/min; Est GFR (African American) 86.2; Est GFR (Non-African American) 74.3; Magnesium 1.9 mg/dl (1.8-2.4); Potassium 4.1 mmol/L (3.5-5.1)
[2019-01-10 07:11] LABS: Bilirubin,Total 0.7 mg/dl (0.2-1); Total Protein 5.9 gm/dl (6.4-8.2)
[2019-01-10] MEDS: SODIUM CHLORIDE 0.9% 1000ML 1,000 ML IV SCH ×2 (07:16→16:05)
[2019-01-10] MEDS ORDERED: methylPREDNISolone 125 MG/2 ML VIAL IV STA (08:56)
[2019-01-10] MEDS ORDERED: ALBUT/IPRATROP 3MG/0.5MG NEB 3 ML VIAL NEB PRN (08:59)
[2019-01-10] MEDS ORDERED: ENOXAPARIN INJ 40 MG/0.4 ML SYR SQ SCH (09:00)
[2019-01-10] MEDS ORDERED: FUROSEMIDE 40 MG/4 ML VIAL IV STA (09:09)
[2019-01-10] MEDS: LIDOCAINE 5% 1 PATCH TD SCH (09:13)
[2019-01-10] MEDS: NICOTINE 21 MG/24 HR TDSY TD SCH ×2 (09:14→12:05)
[2019-01-10] MEDS ORDERED: FUROSEMIDE 40 MG in SYRINGE 0 ML IV ONE (09:15)
--- NOTE | 2019-01-10 10:30 | Gastroenterology Progress Note ---
Date of Service January 10, 2019 Assessment & Plan (1) Pancreatic lesion: Pt is a 73 y/o male seen for incidentally found pancreas tail lesion, soft tissue nodule near it and gallbladder neck stone in his radiology studies today during his workup for RUQ abd and chest pains. LFTs and Lipase normal. Hx of ETOH pancreatitis back in 2012. Pancreas cyst noted back then but had resolved upon outpt f/u. He had been sober since 2012. EGD/EUS planned today however he's confused on exam this morning, uncooperative. On evaluation, noted to have wheezing, ronchi bilateral lungs. He had refused 4 sessions of breathing treatment. - I called Tosin (pt's daughter) and Dr. Pereyra (primary hospitalist) to alert them of pt's change in mental status. Likely related to hypoxia. Will obtain CXR, per hospitalist will obtain ABGs. - Plan to cancel EGD/EUS given acute change in clinical status. We can re- evaluate him once he's mental and respiratory status is improved to offer EGD/EUS inpt vs outpt. Supervising Physician Co-Signing Physician Notes We were planning to do upper endoscopy with endoscopic ultrasound for evaluation of the patient's pancreatic cyst. Unfortunately the patient was hypoxic and had an altered mental status this morning. Given this perhaps it is best to schedule this procedure in 4 to 6 weeks as this is an elective procedure. Recommendations EUS upper endoscopy in 4 weeks Please call with any questions or concerns during the remainder of the hospital admission Subjective Pt is confused, swearing at nurses and myself. He denies any abdominal pain but also won't allow me to examine him much. Per RN he's refused nebulizer treatment for last 4 sessions Review of Systems Review of Systems: All systems reviewed & are unremarkable except as noted in HPI & below Physical Exam Constitutional: comfortable; + uncooperative ENMT: external ear and nose normal, oropharynx normal Respiratory: Auscultation: + rhonchi and + wheezes Cardiovascular: RRR, no murmur, no edema Gastrointestinal (Abdomen): He won't allow me to examine abdomen Skin: no rashes, warm and dry no jaundice Neurologic: + confused Lymphatic: no lymphedema Results & Data Vital Signs (Past 12 Hours) Vital Signs Temp Pulse Pulse Pulse Resp BP BP 01/10/19 09:04 36.6 C 100 H 22 159/75 H 01/10/19 08:55 97 H 20 01/10/19 07:50 82 01/10/19 05:02 36.8 C 96 H 22 169/91 H 01/10/19 00:00 90 01/09/19 23:42 163/90 H 01/09/19 23:27 36.7 C 84 20 172/87 H Pulse Ox 01/10/19 09:04 95 01/10/19 08:55 84 L 01/10/19 07:50 01/10/19 05:02 94 01/10/19 00:00 01/09/19 23:42 01/09/19 23:27 95
--- NOTE | 2019-01-10 11:35 | XRay Report ---
XR chest 1V portable CLINICAL HISTORY: wheezing COMPARISON STUDY: 01/09/2019 FINDINGS: The heart is mildly enlarged. The patient appears hyperinflated. There is no focal pulmonar y consolidation. There is minimal basilar interstitial thickening similar to the prior study.[ IMPRESSION: Cardiomegaly and suspected underlying pulmonary emphysema. No acute findings. Electronically signed by: Jeovanny Rehman M.D. 01/10/2019 11:34 AM
--- NOTE | 2019-01-10 15:10 | Hospitalist Progress Note ---
Date of Service January 10, 2019 Assessment & Plan (1) Chest pain: This is a 73 yr old M who has significant PMH of tobacco abuse and hx of ETOH abuse who presents to [facility] ED secondary to chest pain x 1 week. Pain localized to R anterior/inferior rib as well as RUQ. Worse with deep breat arvind/cough. ECG w/o ST T wave changes, vitals stable, trop negative x 2.-Doubt any ACS Has subacute to chronic fractures of the anterolateral right sixth through 9th ribs Chest pain seems to be better Ultrasound-cholelithiasis with gallbladder dilatation but no acute cholecystitis (2) Hyponatremia: Sodium minimally low at 131 IVF NS 110cc/hr follow bmp-remained around 05 24-01/10 (3) Pancreatic lesion: As in pancreas CT: Redemonstration of the 3.0 x 2.2 cm cystic lesion within the pancreatic tail. This demonstrates a slightly thickened septation and a small amount of peripheral calcification. Therefore, this could represent a mucinous cystic tumor within the pancreas. In addition, this could represent a pancreatic pseudocyst. 2. Mild edema and inflammatory change surrounding the pancreatic tail and extending to the splenic hilum which raises the possibility of superimposed acute pancreatitis. 3. A 2.9 x 1.0 cm lobular soft tissue nodule anterior and inferior to the pancreatic tail as described above. This is also nonspecific and could represent a metastatic focus if the pancreatic lesion represents a mucinous cystic tumor. 4. Cholelithiasis with a 1.7 cm gallstone in the neck of the gallbladder. The gallbladder is mildly distended which has progressed. No surrounding inflammatory change. However, clinical correlation recommended to assess for a developing acute cholecystitis. Does not have any acute pancreatitis Consult GI for further input Possible EUS (4) Emphysema of lung: Likely has acute exacerbation Emphysema noted on CAT scan Tbacco abuse for 50 years 1.5-2ppd Noted to be very hypoxic this morning Was given intravenous Solu-Medrol Symbicort has been added Albuterol as needed Acute confusion Likely secondary to hypoxemia due to COPD exacerbation Received intravenous Lasix 40 mg x 1 and Solu-Medrol 60 mg x 1 We will continue Solu-Medrol and nebulized bronchodilator Symbicort added Confusion seems to be clearing up (5) Tobacco use disorder: nicotine patch ordered smoking cessation encouraged (6) DVT prophylaxis: SCD/TEDS, Lovenox Disposition: Admit to PCU Follow up: PCP Dr. Spaulding upon discharge - per family patient does not see Dr. Spaulding regularly. Would recommend routine follow up. Subjective 01/10 The patient was seen and examined in the telemetry unit He has been confused and aggressive since early this morning Noted to be very hypoxic Denies any significant pain Overall condition improved with appropriate medications Review of Systems Review of Systems: All systems reviewed and are unremarkable except as mentioned below Constitutional: + problem reported (Anxiety and agitation-resolved after some time) Respiratory: + cough and + dyspnea Cardiovascular: no chest pain Neurologic: + confusion Physical Exam Physical Exam: Sitting at the age of the bed with acute distress-early this morning which resolved Constitutional: well developed, well nourished, + acute distress, + obese, well groomed and comfortable; + uncooperative Eyes: PERRL, conjunctivae normal, anicteric sclerae ENMT: external ear and nose normal, oropharynx normal Neck: trachea midline, no thyromegaly Respiratory: + respiratory distress Auscultation: + rhonchi and + wheezes Cardiovascular: Rate/Rhythm: regular rhythm and + bradycardic Gastrointestinal (Abdomen): Inspection/Auscultation: abdomen normal to inspection and normal bowel sounds Percussion/Palpation: + abdomen tender (ruq ) and abdomen soft Skin: no rashes, warm and dry no jaundice Neurologic: moves all extremities and + confused; no focal motor deficits Motor/Sensory: no asterixis Psychiatric: Mood: + irritable mood Resolved subsequently Lymphatic: no lymphedema Results & Data Vital Signs (Past 12 Hours) Vital Signs Temp Pulse Pulse Pulse Resp BP Pulse Ox 01/10/19 14:07 90 16 96 01/10/19 11:35 101 H 18 130/80 96 01/10/19 11:16 85 18 98 01/10/19 09:04 36.6 C 100 H 22 159/75 H 95 01/10/19 08:55 97 H 20 84 L 01/10/19 07:50 82 01/10/19 05:02 36.8 C 96 H 22 169/91 H 94 Laboratory Results Short CBC 01/10/19 Range/Units 06:17 WBC 7.54 (4.8-10.8) K/uL Hgb 10.6 L (14.0-18.0) g/dL Hct 30.9 L (42-52) % Plt Count 205 (130-400) K/uL BMP 01/10/19 06:17 Sodium 132 L Potassium 4.1 Chloride 101 Carbon Dioxide 25 BUN 10 Creatinine 1.00 Glucose 91 Calcium 8.4 L Cardiac Enzymes 01/09/19 Range/Units 16:47 Troponin I < 0.015 (0-0.045) ng/ml Liver Function 01/10/19 Range/Units 06:17 Total Bilirubin 0.7 (0.2-1) mg/dl AST 13 L (15-37) U/L ALT 11 L (12-78) U/L Alkaline Phosphatase 81 (45-117) U/L Albumin 2.9 L (3.4-5.0) gm/dl Medications Administered Current Inpatient Medications Acetaminophen (Tylenol) 650 mg PO Q4H PRN PRN Reason: Pain or Fever Stop: 02/08/19 10:41 Last Admin: 01/09/19 15:34 Dose: 650 mg Documented by: Al Hydrox/Mg Hydrox/Simethicone (Maalox) 15 ml PO Q4H PRN PRN Reason: Dyspepsia Stop: 02/08/19 10:41 Albuterol (Duoneb) 3 ml NEB Q4R JUSTYNA Stop: 02/08/19 10:59 Last Admin: 01/10/19 14:05 Dose: 3 ml Documented by: Albuterol (Duoneb) 3 ml NEB Q6R PRN PRN Reason: Shortness Of Breath Or Wheezing Stop: 02/09/19 08:58 Last Admin: 01/10/19 11:16 Dose: 3 ml Documented by: Budesonide/Formoterol Fumarate (Symbicort 160mcg/4.5mcg) 2 puffs INH BID JUSTYNA Stop: 02/09/19 20:59 Sodium Chloride (Nss 1000ml) 1,000 mls @ 110 mls/hr IV .Q9H6M JUSTYNA Stop: 02/08/19 10:41 Last Admin: 01/10/19 07:16 Dose: 110 mls/hr Documented by: Methylprednisolone 40 mg/ (Syringe) 0.64 mls @ 1.5 mls/min IV Q8H JUSTYNA Stop: 02/09/19 14:59 Ketorolac Tromethamine (Toradol) 15 mg IV Q6H PRN PRN Reason: Moderate Pain Stop: 01/11/19 11:00 Lidocaine (L[facility]oderm 5%) [facility] [place]: 02/08/19 11:44 Last Admin: 01/10/19 09:13 Dose: Not Given Documented by: Magnesium Hydroxide (Milk Of Magnesia) 30 ml PO Q12H PRN PRN Reason: Constipation Stop: 02/08/19 10:41 Miscellaneous (Remove Nicoderm Patch) 1 ea N/A HS [facility] Stop: 02/08/19 20:59 Last Admin: 01/09/19 20:26 Dose: 1 ea Documented by: Miscellaneous (Remove Lidoderm Patch) 1 ea N/A DAILY@2100 [facility] Stop: 02/08/19 20:59 Last Admin: 01/09/19 20:28 Dose: Not Given Documented by: Nicotine (Nicoderm Cq) 21 mg TD QAM [facility] Stop: 02/08/19 10:41 Last Admin: 01/10/19 12:05 Dose: 21 mg Documented by: Nitroglycerin (Nitrostat) 0.4 mg SL UD PRN PRN Reason: Chest Pain Stop: 02/08/19 10:41 Ondansetron HCl (Zofran) 4 mg IV Q6H PRN PRN Reason: Nausea Stop: 02/08/19 10:41 Polyethylene Glycol (Miralax Powder Packet) 17 gm PO DAILY PRN PRN Reason: Constipation Stop: 02/08/19 10:41
[2019-01-10] MEDS: methylPREDNISolone 40 MG in SYRINGE 0 ML IV SCH ×2 (16:04→22:32)
[2019-01-10] MEDS: BUDESONIDE/FORMOTEROL FUMARATE 160/4.5 60 PUFFS/INHALER INH SCH (20:20)
[2019-01-11] MEDS: ALBUT/IPRATROP 3MG/0.5MG NEB 3 ML VIAL NEB SCH ×4 (02:48→15:08)
[2019-01-11] MEDS: methylPREDNISolone 40 MG in SYRINGE 0 ML IV SCH ×3 (06:29→14:49)
[2019-01-11 06:42] LABS: Hematocrit (blood only) 32.2 % (42-52); Hemoglobin 11.1 g/dL (14.0-18.0); Immature Granulocytes # (auto) 0.05 K/uL (0.00-0.02); Immature Granulocytes % (auto) 0.3 %; Lymphocytes # (auto) 0.41 K/uL (1.2-3.4); Lymphocytes % (auto) 2.8 %; Mean Corpuscular Hemoglobin 30.8 pg (25-34); Mean Corpuscular Hgb Conc 34.5 g/dL (32-36); Mean Corpuscular Volume 89.4 fL (80-100); Mean Platelet Volume 9.2 fL (7.4-10.4); Monocytes # (auto) 0.36 K/uL (0.11-0.59); Monocytes % (auto) 2.5 %; Neutrophils % (auto) 94.4 %; Platelet Count 242 K/uL (130-400); RDW Coefficient of Variation 13.6 % (11.5-14.5); RDW Standard Deviation 44.8 fL (36.4-46.3); White Blood Count 14.42 K/uL (4.8-10.8)
[2019-01-11 07:10] LABS: BUN Creatinine Ratio 13.7 (10-20); Calcium 8.8 mg/dl (8.5-10.1); Creatinine Clr Calc Pharmacy 59.8 ml/min; Est GFR (African American) 63.9; Est GFR (Non-African American) 55.2; Phosphorus 3.4 mg/dl (2.5-4.9); Potassium 3.8 mmol/L (3.5-5.1)
[2019-01-11] MEDS: NICOTINE 21 MG/24 HR TDSY TD SCH (09:10)
[2019-01-11] MEDS: LIDOCAINE 5% 1 PATCH TD SCH (09:10)
[2019-01-11] MEDS: BUDESONIDE/FORMOTEROL FUMARATE 160/4.5 60 PUFFS/INHALER INH SCH (09:11)
--- NOTE | 2019-01-11 12:53 | Hospitalist Progress Note ---
Date of Service January 11, 2019 Assessment & Plan (1) Chest pain: This is a 73 yr old M who has significant PMH of tobacco abuse and hx of ETOH abuse who presents to [facility] ED secondary to chest pain x 1 week. Pain localized to R anterior/inferior rib as well as RUQ. Worse with deep breat arvind/cough. ECG w/o ST T wave changes, vitals stable, trop negative x 2.-Doubt any ACS Has subacute to chronic fractures of the anterolateral right sixth through 9th ribs Chest pain seems to be better Ultrasound-cholelithiasis with gallbladder dilatation but no acute cholecystitis Denies any more chest or abdominal pain Remains stable (2) Hyponatremia: Sodium minimally low at 131 IVF NS 110cc/hr follow bmp-remained around 30-01/10 Sodium remains around 130 (3) Pancreatic lesion: As in pancreas CT: Redemonstration of the 3.0 x 2.2 cm cystic lesion within the pancreatic tail. This demonstrates a slightly thickened septation and a small amount of peripheral calcification. Therefore, this could represent a mucinous cystic tumor within the pancreas. In addition, this could represent a pancreatic pseudocyst. 2. Mild edema and inflammatory change surrounding the pancreatic tail and extending to the splenic hilum which raises the possibility of superimposed acute pancreatitis. 3. A 2.9 x 1.0 cm lobular soft tissue nodule anterior and inferior to the pancreatic tail as described above. This is also nonspecific and could represent a metastatic focus if the pancreatic lesion represents a mucinous cystic tumor. 4. Cholelithiasis with a 1.7 cm gallstone in the neck of the gallbladder. The gallbladder is mildly distended which has progressed. No surrounding inflammatory change. However, clinical correlation recommended to assess for a developing acute cholecystitis. Does not have any acute pancreatitis Consult GI for further input Possible EUS as an outpatient and GI will schedule that (4) Emphysema of lung: Likely has acute exacerbation Emphysema noted on CAT scan Tbacco abuse for 50 years 1.5-2ppd Noted to be very hypoxic this morning Was given intravenous Solu-Medrol Symbicort has been added Albuterol as needed Clinically a lot better today We will discharge home this afternoon Discussed with the daughter in detail Strongly advised to quit smoking Will have to do steps O2 saturation test before discharge Acute confusion Likely secondary to hypoxemia due to COPD exacerbation Received intravenous Lasix 40 mg x 1 and Solu-Medrol 60 mg x 1 We will continue Solu-Medrol and nebulized bronchodilator Symbicort added Confusion seems to be clearing up Acute confusion resolved (5) Tobacco use disorder: nicotine patch ordered smoking cessation encouraged With prescribed nicotine patch to help quit smoking (6) DVT prophylaxis: SCD/TEDS, Lovenox Disposition: Admit to PCU Follow up: PCP Dr. Spaulding upon discharge - per family patient does not see Dr. Spaulding regularly. Would recommend routine follow up. Subjective 01/10 The patient was seen and examined in the telemetry unit He has been confused and aggressive since early this morning Noted to be very hypoxic Denies any significant pain Overall condition improved with appropriate medications 01/11 Patient was seen and examined in telemetry unit He has been feeling a lot better this morning Less shortness of breath and denies any more chest pain No abdominal pain nausea no vomiting and has been getting physical therapy No more confusion Review of Systems Review of Systems: All systems reviewed and are unremarkable except as mentioned below Respiratory: + cough and + wheezing (Very minimal) Neurologic: no confusion Physical Exam Physical Exam: Sitting on a chair without any significant symptoms Constitutional: well developed, well nourished, + obese, well groomed and comfortable; no acute distress, not ill appearing and + uncooperative Eyes: PERRL, conjunctivae normal, anicteric sclerae ENMT: external ear and nose normal, oropharynx normal Neck: trachea midline, no thyromegaly Respiratory: + respiratory distress (Minimal respiratory distress at rest) Auscultation: + rhonchi and + wheezes Cardiovascular: Rate/Rhythm: regular rhythm and + bradycardic Gastrointestinal (Abdomen): Inspection/Auscultation: abdomen normal to inspection and normal bowel sounds Percussion/Palpation: + abdomen tender (ruq ) and abdomen soft Skin: no rashes, warm and dry no jaundice Neurologic: moves all extremities and + confused; no focal motor deficits Motor/Sensory: no asterixis Psychiatric: Orientation: alert and oriented x 3 Lymphatic: no cervical or axillary lymphadenopathy no lymphedema Results & Data Vital Signs (Past 12 Hours) Vital Signs Temp Pulse Pulse Pulse Resp BP BP 01/11/19 12:00 36.8 C 92 H 20 158/78 H 01/11/19 11:11 92 H 18 01/11/19 08:15 100 H 01/11/19 07:33 37.1 C 99 H 20 134/71 09/19/19 07:13 98 H 18 01/11/19 04:02 36.8 C 108 H 20 134/70 01/11/19 02:48 111 H 16 Pulse Ox 01/11/19 12:00 93 01/11/19 11:11 92 01/11/19 08:15 01/11/19 07:33 92 01/11/19 07:13 93 01/11/19 04:02 95 01/11/19 02:48 93 Laboratory Results Short CBC 01/11/19 Range/Units 05:54 WBC 14.42 H (4.8-10.8) K/uL Hgb 11.1 L (14.0-18.0) g/dL Hct 32.2 L (42-52) % Plt Count 242 (130-400) K/uL BMP 01/11/19 05:54 Sodium 130 L Potassium 3.8 Chloride 97 L Carbon Dioxide 26 BUN 17 D Creatinine 1.28 Glucose 158 H Calcium 8.8 Medications Administered Current Inpatient Medications Acetaminophen (Tylenol) 650 mg PO Q4H PRN PRN Reason: Pain or Fever Stop: 02/08/19 10:41 Last Admin: 01/09/19 15:34 Dose: 650 mg Documented by: Al Hydrox/Mg Hydrox/Simethicone (Maalox) 15 ml PO Q4H PRN PRN Reason: Dyspepsia Stop: 02/08/19 10:41 Albuterol (Duoneb) 3 ml NEB Q4R JUSTYNA Stop: 02/08/19 10:59 Last Admin: 01/11/19 11:08 Dose: 3 ml Documented by: Albuterol (Duoneb) 3 ml NEB Q6R PRN PRN Reason: Shortness Of Breath Or Wheezing Stop: 02/09/19 08:58 Last Admin: 01/10/19 11:16 Dose: 3 ml Documented by: Budesonide/Formoterol Fumarate (Symbicort 160mcg/4.5mcg) 2 puffs INH BID JUSTYNA Stop: 02/09/19 20:59 Last Admin: 01/11/19 09:11 Dose: 2 puffs Documented by: Methylprednisolone 40 mg/ (Syringe) 0.64 mls @ 1.5 mls/min IV Q8H JUSTYNA Stop: 02/09/19 14:59 Last Admin: 01/11/19 07:32 Dose: 1.5 mls/min Documented by: Lidocaine (Lidoderm 5%) [facility] Stop: 02/08/19 11:44 Last Admin: 01/11/19 09:10 Dose: 1 patch Documented by: Magnesium Hydroxide (Milk Of Magnesia) 30 ml PO Q12H PRN PRN Reason: Constipation Stop: 02/08/19 10:41 Miscellaneous (Remove Nicoderm Patch) 1 ea N/A HS [facility] Stop: 02/08/19 20:59 Last Admin: 01/10/19 20:20 Dose: 1 ea Documented by: Miscellaneous (Remove Lidoderm Patch) 1 ea N/A DAILY@2100 [facility] Stop: 02/08/19 20:59 Last Admin: 01/10/19 20:20 Dose: Not Given Documented by: Nicotine (Nicoderm Cq) 21 mg TD QAM [facility] Stop: 02/08/19 10:41 Last Admin: 01/11/19 09:10 Dose: 21 mg Documented by: Nitroglycerin (Nitrostat) 0.4 mg SL UD PRN PRN Reason: Chest Pain Stop: 02/08/19 10:41 Ondansetron HCl (Zofran) 4 mg IV Q6H PRN PRN Reason: Nausea Stop: 02/08/19 10:41 Polyethylene Glycol (Miralax Powder Packet) 17 gm PO DAILY PRN PRN Reason: Constipation Stop: 02/08/19 10:41
--- NOTE | 2019-01-12 08:14 | Discharge Summary ---
Date of Service January 12, 2019 Admission HPI Per Admitting Provider This is a 73 yr old M who has significant past medical history of tobacco abuse and hx of ETOH abuse who presents to [facility] ED secondary to chest pain x 1 week. Chest pain awoke pt from sleep this morning at 3:45am. Daughter and son in law at bedside. Described pain as constant with intermittent stabbing, located R chest wall and epigastric area, worse with coughing and deep breath, non radiating, not exertional. No recent injury or fall. Does not recall any heavy lifting. Has hx of smoking since 15 at 1.5-2ppd. Complains of QUINONEZ but attributes this to his smoking. Walking short distances causes him to be sob. He denies SOB at rest. Has chronic moist cough, recently unable to expectorate. Denies f/c/s, dizziness, lightheaded, palpitations, hemopytsis, n/v/d, melena, hematochezia, increased urgency/freq, hematuria. Unsure if pain worse with meals but did have ice cream at approx 12am. Per family appetite is mostly poor and he mostly snacks and drinks diet pepsi. No known weight loss or gain. Pt has prior hx of heavy ETOH abuse with gallon of Black velvet daily for many years. Quit drinking 07/2012 after hospitalization. Hospitalized 07/2012 for Sepsis, UTI, encephalopathy, findings concerning for cirrhosis. During this admission he had CT abd/pelvis which noted a 1.9cm cystic lesion at pancreatic neck. Follow up CT as outpt on 02/2013 revealed resolution of cyst felt to be related to pancreatitis. Admission Exam Per Admitting Provider Physical Exam: Constitutional: Chronically ill appearing, unkempt, vitals as above, NAD, sitting up in bed, +pain with deep inspiration, pleasant, conversing easily Head: Normocephalic, Atraumatic Eyes: PERRL, conjunctivae normal, anicteric sclerae ENMT: external ear and nose normal, oropharynx dry Neck: trachea midline, no thyromegaly normal visual inspection Respiratory: normal respiratory effort, pain with inspiration, lungs clear to auscultation, +wheeze/rhonchi throughout not clearance with coughing, no rales. Normal insp/exp effort, no accessory muscle use, +pain to palpation pinpoint R lower anterior rib Cardiovascular: RRR, no murmur, no edema Vessels: no JVD or carotid bruit Chest: normal inspection of chest Abdomen: normal bowel sounds, soft, nontender, + hepatomegaly, +pain to palpation RUQ, no ordonez's sign, rosving, rigidity or guarding Musculoskeletal: no cyanosis or clubbing, extremities motor strength 5/5 Skin: no rashes, warm and dry normal turgor Neurologic: PERRL, EOMI, accommodation nl, no face palsy, no dysarthria CN's II-XI intact bilaterally and moves all extremities Psychiatric: A+Ox3, euthymic affect : deferred Principal Diagnosis COPD exacerbation, chest pain-no ACS, pancreatic Lesion under investigation, tobacco use disorder, acute confusion-resolved Discharge Exam Constitutional well developed, well nourished, + obese, well groomed and comfortable; no acute distress, not ill appearing and + uncooperative Eyes PERRL, conjunctivae normal, anicteric sclerae ENMT external ear and nose normal, oropharynx normal Neck trachea midline, no thyromegaly Respiratory + respiratory distress (Minimal respiratory distress at rest) Auscultation: + rhonchi and + wheezes Cardiovascular Rate/Rhythm: regular rhythm and + bradycardic Gastrointestinal (Abdomen) Inspection/Auscultation: abdomen normal to inspection and normal bowel sounds Percussion/Palpation: + abdomen tender (ruq ) and abdomen soft Skin no rashes, warm and dry no jaundice Neurologic moves all extremities and + confused; no focal motor deficits Motor/Sensory: no asterixis Psychiatric Orientation: alert and oriented x 3 Mood: + irritable mood Lymphatic no cervical or axillary lymphadenopathy no lymphedema Discharge Data Allergies Allergy/AdvReac Type Severity Reaction Status Date / Time No Known Allergies Allergy Verified 01/09/19 04:57 Consultations 01/09/19 08:57 ED Decision to Admit Stat 01/09/19 09:51 Consult Gastroenterology Routine 01/09/19 10:42 Consult Case Management - Discharge Planning Routine 01/11/19 14:34 Consult Case Management - Discharge Planning Routine Procedures Performed Operation Date: 01/10/19 10:20 <No data on this case meets the specified criteria> Ordered Studies 01/09/19 05:37 CT angio chest PE protocol Stat 01/09/19 07:18 CT pancreas 3-phase wo/w con Stat 01/09/19 09:51 US abdomen limited Stat Hospital Course (1) Chest pain: This is a 73 yr old M who has significant PMH of tobacco abuse and hx of ETOH abuse who presents to [facility] ED secondary to chest pain x 1 week. Pain localized to R anterior/inferior rib as well as RUQ. Worse with deep breathing/cough. ECG w/o ST T wave changes, vitals stable, trop negative x 2.-Doubt any ACS Has subacute to chronic fractures of the anterolateral right sixth through 9th ribs Chest pain seems to be better Ultrasound-cholelithiasis with gallbladder dilatation but no acute cholecystitis Denies any more chest or abdominal pain Remains stable (2) Hyponatremia: Sodium minimally low at 131 IVF NS 110cc/hr follow bmp-remained around 05 24-01/10 Sodium remains around 130 (3) Pancreatic lesion: As in pancreas CT: Redemonstration of the 3.0 x 2.2 cm cystic lesion within the pancreatic tail. This demonstrates a slightly thickened septation and a small a mount of peripheral calcification. Therefore, this could represent a mucinous cystic tumor within the pancreas. In addition, this could represent a pancreatic pseudocyst. 2. Mild edema and inflammatory change surrounding the pancreatic tail and extending to the splenic hilum which raises the possibility of superimposed acute pancreatitis. 3. A 2.9 x 1.0 cm lobular soft tissue nodule anterior and inferior to the pancreatic tail as described above. This is also nonspecific and could represent a metastatic focus if the pancreatic lesion represents a mucinous cystic tumor. 4. Cholelithiasis with a 1.7 cm gallstone in the neck of the gallbladder. The gallbladder is mildly distended which has progressed. No surrounding inflammatory change. However, clinical correlation recommended to assess for a developing acute cholecystitis. Does not have any acute pancreatitis Consult GI for further input Possible EUS as an outpatient and GI will schedule that (4) Emphysema of lung: Likely has acute exacerbation Emphysema noted on CAT scan Tbacco abuse for 50 years 1.5-2ppd Noted to be very hypoxic this morning Was given intravenous Solu-Medrol Symbicort has been added Albuterol as needed Clinically a lot better today We will discharge home this afternoon Discussed with the daughter in detail Strongly advised to quit smoking Will have to do steps O2 saturation test before discharge Acute confusion Likely secondary to hypoxemia due to COPD exacerbation Received intravenous Lasix 40 mg x 1 and Solu-Medrol 60 mg x 1 We will continue Solu-Medrol and nebulized bronchodilator Symbicort added Confusion seems to be clearing up Acute confusion resolved (5) Tobacco use disorder: nicotine patch ordered smoking cessation encouraged With prescribed nicotine patch to help quit smoking (6) DVT prophylaxis: SCD/TEDS, Lovenox Disposition: Admit to PCU Follow up: PCP Dr. Spaulding upon discharge - per family patient does not see Dr. Spaulding regularly. Would recommend routine follow up. Total Time Total Time Spent Total Time Spent (In Minutes): 35 minutes Total Time Includes: Examination of the Patient, Discharge Planning, Medication Reconciliation and Communication With Other Providers Discharge Plan Discharge Items Patient Disposition: Home - Home Health Services Reason For Visit: CHEST PAIN Discharge Diagnosis: COPD exacerbation, chest pain-no ACS, pancreatic Lesion under investigation, tobacco use disorder, acute confusion-resolved Condition on Discharge: Good Activity: Resume your previous activity Non-emergency contact: Primary Care Provider Call non-emergency contact if: you have any medication questions and your symptoms worsen Follow-up/Referrals: Jeffry Spaulding MD [Primary Care Provider] - 01/15/19 1:00 pm (Your appointment is with Dr. Shweta Spaulding is not available. Grayson ARELLANO will call you with an appointment for EUS) Diet: Heart Healthy Addtl Attending Provider Instructions: Strongly advised to quit smoking. Please take precaution to avoid falls Pending Studies at Discharge: No Stand-Alone Forms: Call Back Authorization, [facility] Medications and DC Order Prescriptions: New nicotine [Nicoderm CQ] 21 mg/24 hr Patch 24 Hour 21 mg transdermal QAM 30 Days Qty: 30 RF: 0 Symbicort 160-4.5 mcg/actuation Hfa Aerosol Inhaler 2 puff inhalation BID 30 Days Qty: 1 RF: 0 prednisone 10 mg tablet 10 mg PO UD Qty: 30 RF: 0 Combivent Respimat 20-100 mcg/actuation mist 1 puffs INH Q6H PRN (Reason: wheezing) Qty: 4 RF: 0 Continued Centrum Silver 0.4-300-250 mg-mcg-mcg Tablet 1 tab PO DAILY RF: 0 Discharge Orders: Discharge Order (Routine); Ordered 01/11/19 Ordered By: Tamy Pereyra Admission Data Admit Date/Time: 01/09/19 21:00 Attending Provider: Tamy Pereyra Admit Provider: Lio Merritt Primary Care Provider: Jeffry Spaulding Other Providers: Shannon Sow ; Lio Merritt Other Interventions: Discharge Summary Assessment (RN) Last Done: 01/11/19 14:51 DC Date/Time DO NOT enter until pt leaves facility: 01/11/19 16:35
== END 2019-01-11 16:35 | disposition home health service (06) | DRG 438 ==
LOC: 2S 04:40 → ED 04:40 → 2S 09:57 → SUATTDRO 21:00
DX: K85.90 Acute pancreatitis without necrosis or infection, unspecified; K80.10 Calculus of gallbladder with chronic cholecystitis without obstruction; J44.1 Chronic obstructive pulmonary disease with (acute) exacerbation; G93.41 Metabolic encephalopathy; F17.210 Nicotine dependence, cigarettes, uncomplicated; Z82.49 Family history of ischemic heart disease and other diseases of the circulatory system; Z80.3 Family history of malignant neoplasm of breast; E87.1 Hypo-osmolality and hyponatremia; Z80.0 Family history of malignant neoplasm of digestive organs; K86.2 Cyst of pancreas

== ENCOUNTER 2019-03-05 05:30 | Observation (INO) ==
--- NOTE | 2019-03-02 13:07 | Anesthesiology Consultation ---
Date of Service March 02, 2019 Assessment & Plan Chart Review Chart Review: Acceptable Risk for Surgery and Patient NOT seen in Pre Admission Testing Pulmonary note 01/25/2019: (2) COPD (chronic obstructive pulmonary disease): Plan - Saeed Linton MD: Impression: 73-year-old male recently admitted with chest pain found to have emphysema on his CT scan. He has been successful in smoking cessation. Recommendations: 1. COPD: Recent hospitalization for acute exacerbation. Significantly improved now. Will obtain a complete pulmonary function test including pre-and post spirometry, lung volumes, diffusion capacity. We will place the patient on a tr ial of Anoro and change his DuoNeb's to every 6 hours as needed. Discontinue nebulized budesonide. History Surgery Operation Date: 03/05/19 07:00 Proposed Procedures p Endoscopic Retrograde Cholangiopancreatogram - Shannon goodson Laparoscopic Cholecystectomy - Cosme Mendiola MD Height/Weight Height: 5 ft 9 in Weight: 86.183 kg Allergies Allergy/AdvReac Type Severity Reaction Status Date / Time No Known Allergies Allergy Verified 03/01/19 13:54 Medications Home Medications Medication Instructions Recorded Confirmed Last Taken Centrum Silver 1 tab PO DAILY 01/09/19 03/01/19 01/08/19 ipratropium-albuterol [Combivent 1 puffs INH Q6H PRN #4 gm 01/11/19 03/01/19 Unknown Respimat] omeprazole 40 mg PO QAM 02/23/19 03/01/19 Unknown umeclidinium-vilanterol [Anoro 1 puffs INH QAM 02/23/19 03/01/19 Unknown Ellipta] nicotine 1 patch TRANSDERMAL DAILY 03/01/19 03/01/19 Unknown Past Medical History Medical History Pancreatic lesion MONITORING NO TREATMENT Emphysema of lung History of gastritis (Chronic) Compression fx, lumbar spine (Chronic) HX OF, CHRONIC BACK PAIN Chronic obstructive pulmonary disease GERD (gastroesophageal reflux disease) Gallstone NEED ERCP FOR STONE Past Family History Family History Father Colorectal cancer Mother Hypertension Breast cancer Past Surgical History Surgical History History of hernia repair (Chronic) INGUINAL HERNIA REPAIR Hx of esophagogastroduodenoscopy Social History Smoking Status: Heavy tobacco smoker tobacco type: cigarettes Smoking cigarettes per day: 30-40 DAILY (QUIT 2018 PER DAUGHTER, USING PATCH) Do You Dip or Chew Tobacco: No Hx Alcohol Use: No Hx Substance Use: No substance use type: does not use
[2019-03-05] MEDS ORDERED: CEFAZOLIN 2000MG 2,000 MG/15 ML SYR IV SCH (06:00)
[2019-03-05] MEDS ORDERED: LR 15ML/HR IV SCH (06:00)
[2019-03-05 06:12] LABS: Partial Thromboplastin Ratio 1.1; Partial Thromboplastin Time 29.3 Seconds (21.0-31.0); Prothrombin Time 10.5 Seconds (9.0-12.0)
[2019-03-05 06:23] LABS: Albumin Level 3.4 gm/dl (3.4-5.0); Bilirubin Direct 0.1 mg/dl (0-0.2); Bilirubin,Total 0.5 mg/dl (0.2-1); Total Protein 6.3 gm/dl (6.4-8.2)
[2019-03-05] MEDS ORDERED: BUPIVACAINE 0.5 % 5 MG/1 ML MPF 30ML VIAL ONE (06:34)
[2019-03-05] MEDS ORDERED: HEPARIN (PORCINE) 1000 UNIT/ML 10 ML (CATH LAB USE ONLY) ONE (06:34)
[2019-03-05] MEDS ORDERED: CONRAY 60% 50 ML VIAL ONE (06:34)
[2019-03-05] MEDS ORDERED: INDOMETHACIN 50 MG SUPP PR ONE (06:35)
[2019-03-05] MEDS ORDERED: CEFAZOLIN 250 MG/ML 1 GM VIAL ONE (06:35)
[2019-03-05] MEDS ORDERED: ePHEDrine sulfate 50 MG/ML AMP IV PRN (06:45)
[2019-03-05] MEDS ORDERED: ATROPINE SULFATE 0.1 MG/ML 10ML SYR IV PRN (06:45)
[2019-03-05] MEDS ORDERED: fentaNYL citrate 100 MCG/2 ML VIAL IV PRN (06:45)
[2019-03-05] MEDS ORDERED: ONDANSETRON INJ 2 MG/ML 2 ML VIAL IV PRN (06:45)
[2019-03-05] MEDS ORDERED: LIDOCAINE HCL 2% 2 ML VIAL/AMP(20MG/ML) INFIL ONE (06:50)
[2019-03-05] MEDS ORDERED: PROPOFOL IV EMULSION 10 MG/ML 20 ML VIAL IV ONE (06:50)
[2019-03-05] MEDS ORDERED: DEXAMETHASONE SOD INJ 4 MG/ML VIAL ONE (06:50)
[2019-03-05] MEDS ORDERED: GLYCOPYRROLATE 0.2 MG/ML VIAL ONE (06:50)
[2019-03-05] MEDS ORDERED: NEOSTIGMINE METHYLSULFATE 5 MG/5 ML SYR ONE (06:50)
[2019-03-05] MEDS ORDERED: ONDANSETRON INJ 2 MG/ML 2 ML VIAL ONE (06:50)
[2019-03-05] MEDS ORDERED: fentaNYL citrate 100 MCG/2 ML VIAL ONE ×2 (06:50)
[2019-03-05] MEDS ORDERED: MIDAZOLAM HCL 1 MG/ML 2ML VIAL ONE (06:50)
--- NOTE | 2019-03-05 06:58 | History & Physical Report ---
Date of Service March 05, 2019 Assessment & Plan (1) Choledocholithiasis: Patient with a history of choledocholithiasis presents for ERCP today with cholecystectomy. We have discussed the risks and benefits of ERCP to include bleeding, infection, perforation, pancreatitis and failed biliary cannulation. Plan ERCP today History of Present Illness Chief Complaint: Common bile duct stones Primary Care Provider: Jeffry Spaulding MD Patient with a history of abdominal pain found to have common bile duct stones and evidence of cholelithiasis during endoscopic ultrasound. He presents today for combined ERCP and cholecystectomy. Allergies Allergy/AdvReac Type Severity Reaction Status Date / Time No Known Allergies Allergy Verified 03/05/19 05:55 Home Medications Home Medications Medication Instructions Recorded Confirmed Type Centrum Silver 1 tab PO DAILY 01/09/19 03/05/19 History ipratropium-albuterol [Combivent 1 puffs INH Q6H PRN #4 gm 01/11/19 03/02/19 Rx Respimat] omeprazole 40 mg PO QAM 02/23/19 03/05/19 History umeclidinium-vilanterol [Anoro 1 puffs INH QAM 02/23/19 03/05/19 History Ellipta] nicotine 1 patch TRANSDERMAL DAILY 03/01/19 03/02/19 History Past Med/Surg History Medical History Pancreatic lesion MONITORING NO TREATMENT Emphysema of lung History of gastritis (Chronic) Compression fx, lumbar spine (Chronic) HX OF, CHRONIC BACK PAIN Chronic obstructive pulmonary disease GERD (gastroesophageal reflux disease) Gallstone NEED ERCP FOR STONE Surgical History History of hernia repair (Chronic) INGUINAL HERNIA REPAIR Hx of esophagogastroduodenoscopy Family History Father Colorectal cancer Mother Hypertension Breast cancer Social History Preferred Language: Kittitian Communication Ability: Effective Sql Developer Required: No Beliefs That Will Affect Care: None Current Living Situation: Family Current Living Situation Comment: lives with dtr Other Information That Helps Us Care for You: No Feels Safe at Home: Yes Safety Concerns: Feels Safe At This Time Smoking Status: Heavy tobacco smoker Tobacco Type: cigarettes ; Age Started Using Tobacco: 15 ; packs per day: 1.5 ; Cigarettes Per Day: 30-40 DAILY (QUIT 2018 PER DAUGHTER, USING PATCH) ; Do You Dip or Chew Tobacco: No ; Second Hand Exposure: No ; Tobacco Cessation Education Requested by Patient: No Hx Alcohol Use: No Hx Substance Use: No Review of Systems no sweats no diplopia no cough, no change in sputum and no hemoptysis no chest pain with activity and no dyspnea at rest no paralysis and no numbness no coagulopathy Physical Exam Constitutional: well nourished; no acute distress Eyes: PERRL, conjunctivae normal, anicteric sclerae Neck: trachea midline, no thyromegaly Respiratory: no respiratory distress, no labored breathing, does not use accessory muscles and no cough Cardiovascular: Heart Sounds: + murmur Gastrointestinal (Abdomen): normal bowel sounds, soft, nontender, no hepatosplenomegaly Results & Data Vital Signs (Past 12 Hours) Vital Signs Temp Pulse Resp BP Pulse Ox 03/05/19 06:02 36.5 C 84 18 178/95 H 99 Laboratory Results Laboratory Results - last 24 hr 03/05/19 03/05/19 05:49 05:49 PT 10.5 INR 1.0 APTT 29.3 PTT Ratio 1.1 Total Bilirubin 0.5 Direct Bilirubin 0.1 AST 14 L ALT 17 Alkaline Phosphatase 95 Total Protein 6.3 L Albumin 3.4
--- NOTE | 2019-03-05 07:05 | History & Physical Bridge Note ---
Date of Service March 05, 2019 History & Physical Bridge Note I have examined the patient, reviewed the History & Physical and in the interval since the performance of the History & Physical I have noted the following changes of clinical significance: no changes noted
[2019-03-05] MEDS ORDERED: INDOMETHACIN 50 MG SUPP PR SCH (07:15)
[2019-03-05] MEDS ORDERED: LARYING-O-JET KIT (LTA) ONE (07:35)
[2019-03-05] MEDS ORDERED: ROCURONIUM BROMIDE 10 MG/ML 5 ML VIAL ONE (07:35)
[2019-03-05] MEDS ORDERED: PHENYLEPHRINE 100MCG/ML 5ML SYR ONE (07:35)
[2019-03-05] MEDS ORDERED: SUGAMMADEX SODIUM 200 MG/2 ML VIAL IV ONE (07:44)
--- NOTE | 2019-03-05 08:10 | GI REPORT ---
Patient Name: Wilman Emery Procedure Date: 03/05/2019 7:07 AM Date of : 1945 Admit Type: Outpatient Age: 73 Gender: Male Attending MD: Shannon Sow DO Procedure: ERCP Providers: Shannon Sow DO Referring MD: Cosme Mendiola MD, Jeffry Spaulding Indications: Abdominal pain of suspected biliary origin, For therapy of bile duct stone(s) Medicines: General Anesthesia Complications: No immediate complications. Estimated blood loss: Minimal. Estimated Blood Loss: Estimated blood loss was minimal. Procedure: Pre-Anesthesia Assessment: - Prior to the procedure, a History and Physical was performed, and patient medications, allergies and sensitivities were reviewed. The patient's tolerance of previous anesthesia was reviewed. - The risks and benefits of the procedure and the sedation options and risks were discussed with the patient. All questions were answered and informed consent was obtained. - Patient identification and proposed procedure were verified prior to the procedure by the physician, the nurse and the instant potato processor. The procedure was verified in the pre-procedure area in the procedure room. - Pre-procedure physical examination revealed no contraindications to sedation. - ASA Grade Assessment: III - A patient with severe systemic disease. - After reviewing the risks and benefits, the patient was deemed in satisfactory condition to undergo the procedure. - The anesthesia plan was to use general anesthesia. - Immediately prior to administration of medications, the patient was re-assessed for adequacy to receive sedatives. - The heart rate, respiratory rate, oxygen saturations, blood pressure, adequacy of pulmonary ventilation, and response to care were monitored throughout the procedure. - The physical status of the patient was re-assessed after the procedure. After obtaining informed consent, the scope was passed under direct vision. Throughout the procedure, the patient's blood pressure, pulse, and oxygen saturations were monitored continuously. The Scope was introduced through the mouth, and advanced to the duodenum and used to inject contrast into the bile duct and ventral pancreatic duct. The ERCP was accomplished without difficulty. The patient tolerated the procedure well. Findings: The dial mounter film was normal. The esophagus was successfully intubated under direct vision without detailed examination of the pharynx, larynx, and associated structures, and upper GI tract. The upper GI tract was grossly normal. The major papilla was small. The ventral pancreatic duct was inadvertently cannulated with the short-nosed traction sphincterotome and guidewire without any complications. The bile duct was deeply cannulated with the short-nosed traction sphincterotome and guidewire. Contrast was injected. I personally interpreted the bile duct images. Contrast extended to the hepatic ducts. The biliary orifice was stenotic. This appeared benign. The lower third of the main bile duct contained filling defect(s) thought to be a stone. Biliary sphincterotomy was made with a monofilament Fusion OMNI sphincterotome using ERBE electrocautery. There was no post-sphincterotomy bleeding. To discover objects, the biliary tree was swept with an 11.5 mm balloon starting at the bifurcation. One moderate sized gallstone was removed. No stones remained. One 5 Fr by 5 cm pancreatic stent with a full external pigtail and no internal flaps was placed 5 cm into the ventral pancreatic duct. Clear fluid flowed through the stent. The stent was in good position. The endoscope was withdrawn from the patient. Indomethacin 100 mg was given via suppository to decrease the risk of post-ERCP pancreatitis (PEP). Impression: - The major papilla appeared to be small. - Biliary papillary stenosis, benign. - Choledocholithiasis was found. Complete removal was accomplished by biliary sphincterotomy and balloon extraction. - One prophylactic pancreatic stent was placed into the ventral pancreatic duct. - Indomethacin given to decrease risk of post-ERCP pancreatitis. Recommendation: - The patient will be observed post-procedure, until all discharge criteria are met. - Clear liquid diet today. - Perform a flat plate abdominal x-ray in 4 weeks. Shannon Sow D.O. Shannon Sow, 03/05/2019 8:10:42 AM This report has been signed electronically. Note Initiated On: 03/05/2019 7:07 AM Number of Addenda: 0 I attest to the content of the Intraoperative Record and orders documented therein, exceptions below {[id number]}
[2019-03-05] MEDS ORDERED: ePHEDrine sulfate 50 MG/ML SYR ONE (08:13)
--- NOTE | 2019-03-05 08:28 | Fluoroscopy Report ---
FL ERCP biliary ductal CLINICAL HISTORY: EXPLORE DUCTS COMPARISON STUDY: Abdominal ultrasound 01/09/2019. FLUOROSCOPY TIME: 3 minutes and 41 seconds. FINDINGS: 11 fluoroscopic spot images of the right upper quadrant were submitted. There is an endosco pe at the second portion of the duodenum. The ampulla was cannulated and contrast was injected into t he common bile duct. The bile ducts appear to be normal and course and caliber. A balloon sweep was p erformed. No filling defects within the common bile duct. IMPRESSION: Fluoroscopy provided for balloon sweep of the common bile duct. Electronically signed by: Jono Lechuga M.D. 03/05/2019 8:27 AM
[2019-03-05] MEDS ORDERED: FLOSEAL HEMOSTATIC MATRIX 10ML TOP ONE (09:21)
--- NOTE | 2019-03-05 09:52 | Post Operative Brief Note ---
Immediate Post Op Note v1 Date of Surgery March 05, 2019 Pre & Post Diagnosis Operation Date: 03/05/19 07:00 Pre-Op Diagnosis: CHOLEDOCHOLITHIASIS, CHOLELITHIASIS Post-Op Diagnosis: CHOLEDOCHOLITHIASIS, CHOLELITHIASIS I identified the patient and participated in the time-out.: Yes Procedure Operation Date: 03/05/19 07:00 Actual Procedures Laparoscopic Cholecystectomy(Not Applicable) - Cosme Mendiola MD Surgeon Cosme Mendiola MD [employer] Beena Alvarez PA-C Estimated Blood Loss 30 Findings Consistent with Post-Op Diagnosis Specimens Gallbladder and contents Drains Stewart-Carvalho Drain (in subhepatic space) Anesthesia Type General Complications none
--- NOTE | 2019-03-05 10:44 | Anesthesiology Progress Note ---
Date of Service March 05, 2019 Anesthesia Post Procedure Vital Signs Vital Signs: Temp Pulse Pulse Resp BP BP Pulse Ox 03/05/19 10:40 82 18 148/85 H 100 03/05/19 10:30 82 15 160/87 H 100 03/05/19 10:20 88 18 178/97 H 99 03/05/19 10:14 36.1 C L 87 19 168/136 H 100 03/05/19 06:02 36.5 C 84 18 178/95 H 99 Transfer of Care Handoff Completed per policy Notes Mental Status: alert / awake / arousable and participated in evaluation Patient Amnestic to Procedure: Yes Nausea / Vomiting: adequately controlled Pain: adequately controlled Airway Patency, RR, SpO2: stable & adequate BP & HR: stable & adequate Hydration State: stable & adequate Anesthetic Complications: no major complications apparent and Pt Satisfied with anesthetic care
[2019-03-05] MEDS ORDERED: MoRPHine SULFATE 2 MG/ML CARP IV PRN (11:45)
[2019-03-05] MEDS ORDERED: OXYCODONE/ACETAMINOPHEN 5mg/325mg TAB PO PRN (11:45)
[2019-03-05] MEDS ORDERED: IPRATROPIUM BROMIDE/ALBUTEROL respimat INH INH PRN (11:45)
[2019-03-05] MEDS ORDERED: SODIUM CHLORIDE 0.9% 1000ML 1,000 ML IV SCH (11:45)
--- NOTE | 2019-03-05 12:01 | Communication Note ---
Date of Service: March 05, 2019 The patient underwent ERCP this morning with removal of a gallstone. We did place a prophylactic pancreatic stent. The patient reports that he is feeling well after his procedure. He was admitted by general surgery for observation overnight. Recommendations Avoid nonsteroidals for 5 days Abdominal x-ray ordered for 1 month Clear liquids from my standpoint today Please call with any questions or concerns
--- NOTE | 2019-03-05 14:35 | Operative Report ---
DATE OF OPERATION: 03/05/2019 PREOPERATIVE DIAGNOSES: History of choledocholithiasis, cholelithiasis. POSTOPERATIVE DIAGNOSES: History of choledocholithiasis, cholelithiasis. PROCEDURE: Laparoscopic cholecystectomy. SURGEON: Cosme Mendiola MD FINDINGS: The patient had an ERCP prior to this procedure. Please see Dr. Sow's note for the details of that procedure. Once it was completed, he was then placed supine and the area was prepped and draped in the usual sterile fashion. Transverse incision was made below the umbilicus, carried down through the subcutaneous tissue to the fascia which was grasped with 2 Efrain clamps and incised between. The peritoneum was identified, incised, and the introducer was placed bluntly. The abdomen was insufflated to a pressure of 15 mmHg with carbon dioxide. The upper midline, midclavicular and anterior axillary introducers were placed under direct vision through small skin incisions. There were adhesions of the omentum to the anterior abdominal wall as well as the free edge of the falciform ligament. They were also attached to the medial segment of the left lobe of the liver towards the right side of the falciform. These adhesions were flimsy and were taken down using blunt and cautery dissection where appropriate until the omentum was completely freed. There were few adhesions to the gallbladder that were taken down as well which completely freed the omentum such that it then fell into the lower abdomen. Traction was placed on the gallbladder. The peritoneum was away from the liver and that was dissected away from the liver on the lateral side. That freed the infundibulum there. I then dissected over the anterior surface of the gallbladder into the triangle of Calot and freed all of that. The infundibulum was dissected away from the liver on that side allowing for better mobility. There was an area of thickened lymphatics and connective tissue that was dissected away from the cystic duct. This was clipped and divided. The cystic duct was then completely exposed. It was quite narrow. It was isolated in 360 degrees. Two clips were placed proximally, one near the gallbladder and it was divided. The cystic artery was then isolated and it was clipped twice proximally once near the gallbladder and divided. The gallbladder was then peeled off the liver bed using electrocautery. It was placed into an Endobag and brought out through the upper midline incision where I had to open the gallbladder and removed the bile and the stones in order to extract the gallbladder that was accomplished. That introducer was replaced and liver edge was elevated. There were 2 areas where there was bleeding from the gallbladder bed of the liver. This required irrigation and cautery repeatedly until it was completely stopped. The remainder of the gallbladder bed of the liver was inspected and the previously placed clips were intact. There was some bile spillage as there had been holes created in the gallbladder by the graspers. The subhepatic and subdiaphragmatic spaces were irrigated. The irrigation was removed and that was repeated until the return was clear. I then inspected the gallbladder bed of the liver. There was no further bleeding. I was concerned about whether he would restart his bleeding and so I placed a 10 mm Stewart-Carvalho in the subhepatic space and brought that out through the anterior axillary introducer site secured with a 3-0 nylon. The gas was allowed to escape and the introducers were removed. The fascia of the umbilical introducer site and the upper midline introducer sites was closed with interrupted 0 Vicryl. There was one dilated vein in the area of the umbilical introducer site. That was bleeding. This was isolated, clamped and ligated with a 2-0 silk tie. There was no further bleeding there. The skin was anesthetized with 0.5% Marcaine. The skin was cleansed, dried, benzoin placed, Steri-Strips applied. Estimated blood loss was 30 mL. Sponge, needle and instrument counts were correct prior to closure. The patient tolerated the surgical procedure without complication and was transferred to recovery. I attest to the content of the Intraoperative Record and any orders documented therein. Any exceptions are noted below. RA
[2019-03-06 05:56] LABS: Basophils # (auto) 0.01 K/uL (0-0.2); Basophils % (auto) 0.1 %; Eosinophils # (auto) 0.03 K/uL (0-0.5); Eosinophils % (auto) 0.3 %; Hematocrit (blood only) 30.3 % (42-52); Hemoglobin 10.4 g/dL (14.0-18.0); Immature Granulocytes # (auto) 0.03 K/uL (0.00-0.02); Immature Granulocytes % (auto) 0.3 %; Lymphocytes # (auto) 2.93 K/uL (1.2-3.4); Lymphocytes % (auto) 24.9 %; Mean Corpuscular Hemoglobin 31.1 pg (25-34); Mean Corpuscular Hgb Conc 34.3 g/dL (32-36); Mean Corpuscular Volume 90.7 fL (80-100); Mean Platelet Volume 9.6 fL (7.4-10.4); Monocytes # (auto) 0.94 K/uL (0.11-0.59); Neutrophils # (auto) 7.81 K/uL (1.4-6.5); Neutrophils % (auto) 66.4 %; Platelet Count 188 K/uL (130-400); RDW Coefficient of Variation 13.9 % (11.5-14.5); RDW Standard Deviation 46.2 fL (36.4-46.3); Red Blood Count 3.34 M/uL (4.7-6.1); White Blood Count 11.75 K/uL (4.8-10.8)
[2019-03-06] MEDS ORDERED: PANTOprazole 40 MG TAB PO SCH (09:00)
[2019-03-06] MEDS ORDERED: NICOTINE 21 MG/24 HR TDSY TD SCH (09:00)
--- NOTE | 2019-03-06 09:26 | Surgery Progress Note ---
Date of Service March 06, 2019 Assessment & Plan (1) Cholelithiasis: Postoperative day #1 status post laparoscopic cholecystectomy/ERCP Doing well H&H stable Vital signs stable Drain removed Can discharge to home Discussed postoperative activity restrictions Follow-up in 2 weeks Subjective Postoperative day #1, status post ERCP and laparoscopic cholecystectomy Tolerated regular diet Denies abdominal pain Denies nausea and vomiting Stewart-Carvalho drain is put out 30 to 35 cc per shift of serosanguineous fluid Vital signs stable Physical Exam Gastrointestinal (Abdomen): Inspection/Auscultation: + abdominal surgical incision (Clean, dry and intact); abdomen not distended Percussion/Palpation: abdomen soft; abdomen nontender Results & Data Vital Signs (Past 12 Hours) Vital Signs Temp Pulse Resp BP Pulse Ox 03/06/19 07:13 36.9 C 88 17 139/71 92 03/06/19 03:45 37 C 71 18 146/82 H 93 03/05/19 23:19 36.7 C 85 16 138/72 94 Laboratory Results 03/06/19 03/06/19 Range/Units 05:03 05:03 WBC 11.75 H (4.8-10.8) K/uL RBC 3.34 L (4.7-6.1) M/uL Hgb 10.4 L (14.0-18.0) g/dL Hct 30.3 L (42-52) % MCV 90.7 (80-100) fL MCH 31.1 (25-34) pg MCHC 34.3 (32-36) g/dL RDW Std Deviation 46.2 (36.4-46.3) fL RDW Coeff of Marga 13.9 (11.5-14.5) % Plt Count 188 (130-400) K/uL MPV 9.6 (7.4-10.4) fL Immature Gran % (Auto) 0.3 % Neut % (Auto) 66.4 % Lymph % (Auto) 24.9 % Maverick % (Auto) 8.0 % Eos % (Auto) 0.3 % Baso % (Auto) 0.1 % Immature Gran # (Auto) 0.03 H (0.00-0.02) K/uL Neut # (Auto) 7.81 H (1.4-6.5) K/uL Lymph # (Auto) 2.93 (1.2-3.4) K/uL Maverick # (Auto) 0.94 H (0.11-0.59) K/uL Eos # (Auto) 0.03 (0-0.5) K/uL Baso # (Auto) 0.01 (0-0.2) K/uL Hepatitis C Ab Screen Pending
--- NOTE | 2019-03-09 11:36 | Discharge Summary ---
Date of Service March 09, 2019 Admission HPI Per Admitting Provider Patient with a history of abdominal pain found to have common bile duct stones and evidence of cholelithiasis during endoscopic ultrasound. He presents today for combined ERCP and cholecystectomy. Principal Diagnosis Cholelithiasis Choledocholithiasis Discharge Data Allergies Allergy/AdvReac Type Severity Reaction Status Date / Time No Known Allergies Allergy Verified 03/05/19 05:55 Procedures Performed Operation Date: 03/05/19 07:00 Actual Procedures s Endoscopic Retrograde Cholangiopancreatogram(Not Applicable) - Shannon huertas Laparoscopic Cholecystectomy(Not Applicable) - Cosme Mendiola MD Ordered Studies 03/05/19 07:00 [place] ERCP biliary ductal Routine Hospital Course (1) Cholelithiasis: Patient underwent elective ERCP with laparoscopic cholecystectomy following. Patient found to have stone in common bile duct which was removed and prophylactic pancreatic stent was placed. He developed some bleeding at gallbladder bed on liver which required cautery. A sriram drain was placed to monitor for any bleeding postoperatively therefore he was kept overnight for observation. He was started on regular diet, Percocet prn pain, activity as tolerated. POD # 1 h&h was stable, vitals stable, drain with serosanguineous output, tolerated reg diet and pain was controlled. Sriram drain was removed and patient was discharged home on POD # 1 in stable condition. Total Time Total Time Spent Total Time Spent (In Minutes): 20 Total Time Includes: Examination of the Patient, Discharge Planning and Medication Reconciliation Discharge Plan Discharge Items Patient Disposition: Home - Self-Care Reason For Visit: CHOLEDOCHOLITHIASIS, ASYMPTOMATIC CHOLELITHIASIS Discharge Diagnosis: same Activity: Per Instructions section Non-emergency contact: Surgeon Call non-emergency contact if: your pain is not controlled, your pain is worsening, your pain is concerning for you, you have a fever, your temperature is above 101, your wound has increased redness, your wound has increased drainage and your wound pain has increased Follow-up/Referrals: Jeffry Spaulding MD [Primary Care Provider] - Diet: Regular Addtl Attending Provider Instructions: Post-Surgical ~Discharge Instructions Activity Recommendations: - lifting limitation: (10 pounds for 2 weeks), - exercise/sex/sports limit: (nonstrenuous for 2 weeks), - driving or machine use limit: (none for 1 week), - Shower/bathe limit: (may shower beginning tomorrow) Diet: - Resume previous diet SPECIAL CARE INSTRUCTIONS: - May shower in 24 hours. Let water run over area and pat dry. - Leave steri strips on for one week. - Call the surgeon's office with any questions or concerns - - (ex. temperature higher than 101 degrees F, excessive bleeding or pain). MEDICATIONS: - Resume previous medications unless instructed otherwise by your surgeon. - Ibuprofen 600 mg every 6 hours with food - Percocet 1 every 4 hours, as needed for pain FOLLOW UP VISIT: - If not already scheduled, please call the office to schedule a two week follow-up appointment. Office number Pending Studies at Discharge: Yes (gallbladder pathology, will be reviewed at follow up visit) Studies:: Pathology Stand-Alone Forms: My [facility], Smoking Cessation Medications and DC Order Prescriptions: Continued Centrum Silver 0.4-300-250 mg-mcg-mcg Tablet 1 tab PO DAILY RF: 0 Combivent Respimat 20-100 mcg/actuation mist 1 puffs INH Q6H PRN (Reason: wheezing) Qty: 4 RF: 0 nicotine 21 mg/24 hr Patch 24 Hour 1 patch TRANSDERMAL DAILY RF: 0 omeprazole 40 mg Capsule,Delayed Release(Dr/Ec) 40 mg PO QAM RF: 0 Anoro Ellipta 62.5-25 mcg/actuation blister with device 1 puffs INH QAM RF: 0 Discharge Orders: Discharge Order (Routine); Ordered 03/06/19 Ordered By: Cosme Mendiola Admission Data Admit Date/Time: 03/05/19 10:31 Attending Provider: Shannon Sow Admit Provider: Shannon Sow Primary Care Provider: Jeffry Spaulding Other Providers: Cosme Mendiola Other Interventions: Discharge Summary Assessment (RN) Last Done: 03/06/19 10:33 DC Date/Time DO NOT enter until pt leaves facility: 03/06/19 11:17
== END 2019-03-06 11:17 | disposition home or self-care (01) ==
LOC: ASU 05:30 → 3N 05:30

== ENCOUNTER 2019-05-02 07:32 | Inpatient (IN) ==
[2019-05-02 07:57] LABS: Basophils # (auto) 0.04 K/uL (0-0.2); Basophils % (auto) 0.3 %; Eosinophils # (auto) 0.36 K/uL (0-0.5); Eosinophils % (auto) 3.1 %; Hematocrit (blood only) 37.5 % (42-52); Hemoglobin 12.6 g/dL (14.0-18.0); Immature Granulocytes # (auto) 0.03 K/uL (0.00-0.02); Immature Granulocytes % (auto) 0.3 %; Lymphocytes # (auto) 1.99 K/uL (1.2-3.4); Lymphocytes % (auto) 17.3 %; Mean Corpuscular Hemoglobin 30.4 pg (25-34); Mean Corpuscular Hgb Conc 33.6 g/dL (32-36); Mean Corpuscular Volume 90.4 fL (80-100); Mean Platelet Volume 9.4 fL (7.4-10.4); Monocytes % (auto) 6.1 %; Neutrophils # (auto) 8.36 K/uL (1.4-6.5); Neutrophils % (auto) 72.9 %; Platelet Count 187 K/uL (130-400); RDW Coefficient of Variation 13.4 % (11.5-14.5); RDW Standard Deviation 44.9 fL (36.4-46.3); Red Blood Count 4.15 M/uL (4.7-6.1); White Blood Count 11.48 K/uL (4.8-10.8)
[2019-05-02] MEDS ORDERED: ALBUTEROL 0.083% NEBU SOLN 3 ML VIAL NEB STA (08:01)
[2019-05-02] MEDS ORDERED: ONDANSETRON INJ 2 MG/ML 2 ML VIAL IV STA (08:02)
[2019-05-02] MEDS ORDERED: HYDROmorphone INJ 0.5 MG/0.5 ML SYR IV PRN (08:02)
[2019-05-02] MEDS ORDERED: ACETAMINOPHEN 1,000 MG/100 ML VIAL IV STA (08:02)
[2019-05-02] MEDS ORDERED: LIDOCAINE 5% 1 PATCH TD STA (08:03)
[2019-05-02 08:12] LABS: iSTAT Creatinine 1.4 mg/dl (0.6-1.3); iSTAT Hemoglobin 11.6 g/dl (14.0-18.0); iSTAT Ionized Calcium 1.21 mmol/l (1.12-1.32)
[2019-05-02 08:13] LABS: Albumin Level 3.6 gm/dl (3.4-5.0); BUN Creatinine Ratio 15.2 (10-20); Calcium 9.3 mg/dl (8.5-10.1); Creatinine Clr Calc Pharmacy 53.1 ml/min; Est GFR (African American) 57.4; Est GFR (Non-African American) 49.5; Potassium 4.2 mmol/L (3.5-5.1)
[2019-05-02 08:16] LABS: Bilirubin,Total 0.5 mg/dl (0.2-1); Globulin 3.7 gm/dl (2.5-4.0); Total Protein 7.3 gm/dl (6.4-8.2)
--- NOTE | 2019-05-02 08:50 | XRay Report ---
XR chest 1V portable CLINICAL HISTORY: 73 years-old Male presenting with Pt c/o wheezing. TECHNIQUE: Portable upright AP view of the chest was obtained. COMPARISON: 01/10/2019. FINDINGS: Atherosclerosis of the aortic arch. Cardiac silhouette enlarged. Mild pulmonary vascular prominence. Heterogeneity lung parenchyma. Lungs may be hyperinflated. Interstitial prominence also evident. Appa rent density in the region of the right hilum is likely due to slight patient MAURITANIAN rotation. No focal opacity. No large effusion or pneumothorax. Osteopenia may be present. IMPRESSION: 1. Findings suggest emphysema. 2. Apparent density in the right hilum is likely due to patient rotation. PA and lateral views could clarify if there is clinical concern for pneumonia. 3. Cardiomegaly with volume overload and suspected congestive change. No remi pulmonary edema. ACT 112: Negative or not required by law. Electronically signed by: Mayank Marquez M.D. 05/02/2019 8:49 AM
--- NOTE | 2019-05-02 09:18 | CT Scan Report ---
CT lumbar spine wo con CT DOSE: CLINICAL HISTORY: Left flank/back pain. TECHNIQUE: Helical images were acquired in transverse plane. Reformatted sagittal and coronal images were reviewed. A dose lowering technique was utilized adhering to the principles of ALARA. CONTRAST: No contrast was administered COMPARISON STUDY: April 01, 2013 FINDINGS: L1-2 level: There is no evidence of significant disc bulge or focal herniation. There is no evidence of spinal or foraminal stenosis. L2-3 level: There is no evidence of significant disc bulge or focal herniation. There is no evidence of spinal or foraminal stenosis. L3-4 level: There is a mild circumferential disc bulge. There is minor spinal canal narrowing. There is no significant foraminal narrowing L4-5 level: There is a mild circumferential disc bulge. There is no significant spinal stenosis. Ther e is no subcutaneous foraminal narrowing. L5-S1 level: There is no evidence of significant disc bulge or focal herniation. There is no evidence of spinal or foraminal stenosis. There is a mild superior endplate T12 compression deformity. This was not included on the preceding s tudy. There are superior and inferior endplate compression deformities at the L1 level, similar to th e prior study. There is a minimal superior endplate L1 compression deformity, not present on the prio r study but likely chronic. There is a persistent superior endplate L3 compression fracture similar t o the preceding study. There is a progressive L4 compression fracture demonstrating approximately 50% loss in height. There is a superior endplate L5 compression fracture, slightly progressive when comp ared the preceding study. IMPRESSION: 1. Multilevel lumbar vertebral body compression fractures, slightly progressive when compared the mario or March 2013 study. ACT 112: Negative or not required by law. Electronically signed by: Jeovanny Rehman M.D. 05/02/2019 9:16 AM
--- NOTE | 2019-05-02 09:20 | CT Scan Report ---
CT OF THE ABDOMEN AND PELVIS WITHOUT CONTRAST CLINICAL HISTORY: Left flank pain. COMPARISON STUDY: CT of the abdomen and pelvis April 01, 2013. CT of the pancreas January 09. TECHNIQUE: Axial images of the abdomen and pelvis were obtained without IV contrast. Images were revi ewed in the axial, sagittal, and coronal planes. Automated exposure control was utilized for the myriam dy. A dose lowering technique was utilized adhering to the principles of ALARA. FINDINGS: Emphysema is noted within the lower lungs. No renal, ureteral or bladder calculi are presen t. There is no hydronephrosis or hydroureter. Interval cholecystectomy is noted. There is minimal inf iltration and fluid within the cholecystectomy bed. The hypodensity within the pancreatic tail shown on CT of January 09, 2019 has markedly decreased in size since prior exam. There may be a tiny resi dual hypodensity. Infiltration adjacent to the pancreatic tail extending into the splenic hilum is no neftaly. The abnormality anterior to the pancreatic tail shown on prior CT has markedly decreased in size . There is no biliary ductal dilatation status post cholecystectomy. There is no evidence for a bowel obstruction. The infrarenal abdominal aorta is ectatic, measuring 2.9 cm. No pneumatosis, free air o r portal venous gas is present. The lumbar spine will be reported separately. There are multiple old lumbar spine compression fractures. Bladder wall is mildly thickened. IMPRESSION: 1. No urinary calculi or hydronephrosis. 2. Small amount of fluid, possibly loculated, and infiltration within the cholecystectomy bed. No nilton iary ductal dilatation. 3. Resolution versus near complete resolution of the pancreatic tail hypodensity shown on prior CT. M inimal adjacent infiltration may be postprocedural however findings could be correlated with clinical evidence for acute pancreatitis. Marked decrease in size of the abnormality anterior to the pancreat ic tail shown on prior exam. 4. No bowel obstruction. Normal appendix. 5. Bladder wall thickening which is likely chronic but could be correlated with urinalysis. ACT 112: Negative or not required by law. Electronically signed by: Vickey Hunter M.D. 05/02/2019 9:19 AM
[2019-05-02 09:29] LABS: Appearance Urine Cloudy (Clear); Bacteria Urine Automated Negative (Negative); Bilirubin Urine Negative (Negative); Blood Urine Trace (Negative); Color Urine Dark Yellow; Glucose Urine UA Negative (Negative); Ketones Urine Negative (Negative); Leukocyte Esterase Urine 2+ (Negative); Nitrite Urine Negative (Negative); Protein Urine 1+ (Negative); RBC Urine Automated 0-4 /hpf (0-4); Specific Gravity Urine 1.019 (1.000-1.030); Urobilinogen Urine Negative (Negative); WBC Urine Automated >30 /hpf (0-5); pH Urine 5.5 (4.5-7.5)
[2019-05-02] MEDS ORDERED: cefTRIAXone SODIUM 2,000 MG/70 ML BAG IV STA (09:48)
--- NOTE | 2019-05-02 10:21 | Emergency Department Note ---
Entered by Sean Fuentes acting as a scribe for Durga Newman MD History of Present Illness General Chief complaint: Flank Pain Time Seen by Provider: 05/02/19 07:34 Source: patient History of Present Illness Provider complaint: Flank pain Onset (ago): hour(s) (This morning) Location: abdomen and left Radiation: non-radiation Pain Consistency: + constant Current Pain Intensity: 7 Associated symptoms: no fever/chills and no nausea/vomiting The patient is a 73 year old male who presents to the Emergency Room with complaints of constant left sided flank pain that started this morning. The patient rates the pain as a 7/10 in severity and notes it does not radiate anywhere. The patient denies any fevers, chills, urinary symptoms, nausea, or vomiting. The patient also denies any trauma or falls. The patient has a history of COPD and is a former smoker. The patient also has a history of a pancreatic cyst. Home Medications Home Medications Medication Instructions Recorded Confirmed Type Centrum Silver 1 tab PO QAM 01/09/19 05/02/19 History Combivent Respimat 1 puffs INH Q6H PRN #4 gm 01/11/19 05/02/19 Rx Anoro Ellipta 1 puffs INH QAM 02/23/19 05/02/19 History omeprazole 40 mg PO QAM 02/23/19 05/02/19 History Allergies Allergy/AdvReac Type Severity Reaction Status Date / Time No Known Allergies Allergy Verified 05/02/19 08:00 Past Med/Surg History Medical History (Updated 05/03/19 @ 07:56 by Durga Newman MD) Chronic obstructive pulmonary disease Cirrhosis of liver Compression fx, lumbar spine (Chronic) HX OF, CHRONIC BACK PAIN Dementia GERD (gastroesophageal reflux disease) History of ETOH abuse (Inactive) History of gastritis (Chronic) Pancreatic lesion MONITORING NO TREATMENT Portal hypertensive gastropathy (Inactive) Surgical History (Updated 05/03/19 @ 06:00 by Jeffry Lopez MD) History of anesthesia reaction SEEMS TO SLEEP MORE A FEW DAYS POST OP History of colonoscopy Hx of esophagogastroduodenoscopy Status post cholecystectomy Status post hernia repair Family History Father Colorectal cancer Mother Hypertension Breast cancer Social History Preferred Language: Spanish Communication Ability: Effective 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 Beliefs That Will Affect Care: None Current Living Situation: Family Current Living Situation Comment: lives with dtr Other Information That Helps Us Care for You: No Feels Safe at Home: Yes Safety Concerns: Feels Safe At This Time Smoking Status: Former smoker Tobacco Type: cigarettes ; Age Started Using Tobacco: 15 ; packs per day: 1.5 ; Cigarettes Per Day: 30-40 DAILY (QUIT 2018 PER DAUGHTER, USING PATCH) ; Do You Dip or Chew Tobacco: No ; Smoking End Date: December 2018 ; Second Hand Exposure: No ; Tobacco Cessation Education Requested by Patient: No Hx Alcohol Use: No Hx Substance Use: No Review of Systems See HPI for pertinent positives & negatives. and A total of 10 systems reviewed and were otherwise negative Physical Exam Vital Signs Vital Signs - 24 hr 05/02/19 07:52 05/02/19 08:20 05/02/19 08:21 Pulse Rate [Left Finger] 80 Pulse Rate [Left] 75 Respiratory Rate 18 18 Respiratory Effort / Characteristics Spontaneous Non-Labored Spontaneous Respiratory Depth Normal Blood Pressure [Right Arm] 129/89 Blood Pressure Mean [Right Arm] 102 Blood Pressure Position [Right Arm] Lying Pulse Oximetry 95 94 94 Oxygen Delivery Method Room Air Room Air Room Air 05/02/19 09:28 05/02/19 10:51 Pulse Rate [Left Finger] 85 Pulse Rate [Left] 82 85 Respiratory Rate 18 18 Respiratory Effort / Characteristics Non-Labored Spontaneous Non-Labored Spontaneous Respiratory Depth Blood Pressure [Right Arm] 110/62 106/69 Blood Pressure Mean [Right Arm] 78 81 Blood Pressure Position [Right Arm] Lying Lying Pulse Oximetry 94 94 Oxygen Delivery Method Room Air Room Air GENERAL: Awake, alert, well-appearing, in no distress HENT: Normocephalic, atraumatic. Oropharynx unremarkable. EYES: Normal conjunctiva. Sclera non-icteric. NECK: Supple. No nuchal rigidity. FROM. No masses. RESPIRATORY: Bilateral wheezing present. No rales. Normal respiratory effort. CARDIAC: Normal rate. Normal rhythm. No murmurs. No rubs. Extremities warm and well perfused. Pulses equal. No JVD. GI: Soft, non-distended. No tenderness to palpation. No rebound or guarding. No masses. RECTAL: Deferred. MUSCULOSKELETAL: Atraumatic. Chest examination reveals no tenderness. The back is symmetrical on inspection without obvious abnormality. There is no CVA tenderness to palpation. No joint edema. LOWER EXTREMITIES: Calves are equal size bilaterally and non-tender. No edema. No discoloration. NEURO: Normal sensorium. No sensory or motor deficits noted. Course Course 0738: Past medical records reviewed. The patient was evaluated in room B12B, and a complete history and physical examination were performed. 0950: I reevaluated the patient and updated him on results. He is interested in an inpatient rehab facility. 1011: I spoke to Dr. Trevor Prajapati who recommended the patient wear a TLSO brace which he can obtain as an outpatient. He also suggested having him bare weight as tolerated and control pain. Additionally, he recommended the patient go to physical therapy to build core strength. 1046: The renal case manager is working on placing the patient in an inpatient rehab facility but his insurance is more likely to cover it if her is referred from an inpatient stay rather than the ED. [facility] has been paged. 1119: I spoke to Dr. John Kulkarni about the patient's case and he agreed to accept the patient for further evaluation. Consultations Consultation #1: I spoke to Dr. Trevor Prajapati who recommended the patient wear a TLSO brace which he can obtain as an outpatient. He also suggested having him bare weight as tolerated and control pain. Additionally, he recommended the patient go to physical therapy to build core strength. Time: 10:11 Consultation #2: I spoke to Dr. John Kulkarni about the patient's case and he agreed to accept the patient for further evaluation. Time: 11:19 Administered Medications Miscellaneous (Remove Lidoderm Patch) 1 ea N/A DAILY@2100 [facility] Stop: 06/01/19 20:59 Last Admin: 05/02/19 09:36 Dose: Not Given Documented by: [id number] Miscellaneous (Remove Lidoderm Patch) 1 ea N/A DAILY@2100 [facility] Stop: 06/01/19 20:59 Last Admin: 05/02/19 21:35 Dose: 1 ea Documented by: [id number] Pantoprazole Sodium (Protonix) 40 mg PO [facility] Stop: 06/01/19 12:59 Last Admin: 05/02/19 14:08 Dose: 40 mg Documented by: [id number] Tramadol HCl (Ultram) 50 mg PO Q6H PRN PRN Reason: Severe Pain Stop: 06/01/19 12:19 Last Admin: 05/02/19 21:30 Dose: 50 mg Documented by: [id number] Discontinued Medications Albuterol (Ventolin 0.083% 2.5mg/3ml) 2.5 mg NEB NOW STA Stop: 05/02/19 08:02 Last Admin: 05/02/19 08:20 Dose: 2.5 mg Documented by: [id number] Hydromorphone HCl (Dilaudid) 0.25 mg IV Q15M PRN PRN Reason: Pain Stop: 05/16/19 08:01 Last Admin: 05/02/19 09:11 Dose: 0.25 mg Documented by: [id number] Acetaminophen (Ofirmev) 1,000 mg in 100 mls @ 400 mls/hr IV NOW STA Stop: 05/02/19 08:16 Last Infusion: 05/02/19 08:31 Dose: 0 mls/hr Documented by: [id number] Admin: 05/02/19 08:15 Dose: 400 mls/hr Documented by: [id number] Ceftriaxone Sodium (Rocephin) 2,000 mg in 70 mls @ 140 mls/hr IV NOW STA Stop: 05/02/19 10:17 Last Infusion: 05/02/19 10:37 Dose: 0 mls/hr Documented by: [id number] Admin: 05/02/19 10:05 Dose: 140 mls/hr Documented by: [id number] Lidocaine (Lidoderm 5%) 1 patch TD NOW STA Stop: 05/02/19 08:04 Last Admin: 05/02/19 08:16 Dose: 1 patch Documented by: [id number] Miscellaneous (Order Awaiting Action) 1 ea N/A QS JUSTYNA Stop: 06/01/19 12:59 Last Admin: 05/02/19 19:21 Dose: Not Given Documented by: [id number] Admin: 05/02/19 14:02 Dose: Not Given Documented by: [id number] Ondansetron HCl (Zofran) 4 mg IV NOW STA Stop: 05/02/19 08:03 Last Admin: 05/02/19 08:15 Dose: 4 mg Documented by: [id number] Medical Decision Making Differential Diagnosis Differential: Musculoskeletal, Disc Herniation, Fracture, Cord Compression, Discitis, Infectious, Aortic Pathology, Renal Colic, UTI/Pyelonephritis, Acute Exacerbation of Chronic Pain, Sciatica, Cauda Equina, amongst other pathologies entertained. Medical Records Attestation: I reviewed the patient's medical records. Home Medications Current Medication List: was personally reviewed by me Laboratory Data Attestation: I reviewed the patient's lab results. Result diagrams: 05/03/19 06:15 05/03/19 06:15 Lab Results 05/02/19 05/02/19 05/02/19 Range/Units 07:45 07:45 07:57 WBC 11.48 H (4.8-10.8) K/uL RBC 4.15 L (4.7-6.1) M/uL Hgb 12.6 L (14.0-18.0) g/dL POC Hgb 11.6 L (14.0-18.0) g/dl Hct 37.5 L (42-52) % POC Hct 34 L (42-52) % MCV 90.4 (80-100) fL MCH 30.4 (25-34) pg MCHC 33.6 (32-36) g/dL RDW Std Deviation 44.9 (36.4-46.3) fL RDW Coeff of Marga 13.4 (11.5-14.5) % Plt Count 187 (130-400) K/uL MPV 9.4 (7.4-10.4) fL Immature Gran % (Auto) 0.3 % Neut % (Auto) 72.9 % Lymph % (Auto) 17.3 % Snyder % (Auto) 6.1 % Eos % (Auto) 3.1 % Baso % (Auto) 0.3 % Immature Gran # (Auto) 0.03 H (0.00-0.02) K/uL Neut # (Auto) 8.36 H (1.4-6.5) K/uL Lymph # (Auto) 1.99 (1.2-3.4) K/uL Snyder # (Auto) 0.70 H (0.11-0.59) K/uL Eos # (Auto) 0.36 (0-0.5) K/uL Baso # (Auto) 0.04 (0-0.2) K/uL POC Sodium 135 (135-144) mEq/L Sodium 135 L (136-145) mmol/L POC Potassium 4.0 (3.3-5.0) mEq/L Potassium 4.2 (3.5-5.1) mmol/L POC Chloride 100 L (101-112) mEq/L Chloride 102 (98-107) mmol/L Carbon Dioxide 28 (21-32) mmol/L POC Total CO2 26 (24-31) mEq/l Anion Gap 5.0 (3-11) POC Anion Gap 15.0 L (16-25) mmol/L POC BUN 22 H (7-18) mg/dl BUN 21 H (7-18) mg/dl Creatinine 1.40 (0.6-1.4) mg/dl POC Creatinine 1.4 H (0.6-1.3) mg/dl Est Cr Clr Drug Dosing 53.1 ml/min Est GFR ( Amer) 57.4 Est GFR (Non-Af Amer) 49.5 BUN/Creatinine Ratio 15.2 (10-20) Glucose 99 (70-99) mg/dl POC Glucose (other) 94 (70-99) mg/dl Calcium 9.3 (8.5-10.1) mg/dl POC Ioniz Calcium Marnie 1.21 (1.12-1.32) mmol/l Total Bilirubin 0.5 (0.2-1) mg/dl AST 10 L (15-37) U/L ALT 14 (12-78) U/L Alkaline Phosphatase 131 H (45-117) U/L Total Protein 7.3 (6.4-8.2) gm/dl Albumin 3.6 (3.4-5.0) gm/dl Globulin 3.7 (2.5-4.0) gm/dl Albumin/Globulin Ratio 1.0 (0.9-2) Lipase 74 (73-393) U/L Urine Color Urine Appearance (Clear) Urine pH (4.5-7.5) Ur Specific Boyd (1.000-1.030) Urine Protein (Negative) Urine Glucose (UA) (Negative) Urine Ketones (Negative) Urine Blood (Negative) Urine Nitrite (Negative) Urine Bilirubin (Negative) Urine Urobilinogen (Negative) Ur Leukocyte Esterase (Negative) Urine WBC (Auto) (0-5) /hpf Urine RBC (Auto) (0-4) /hpf U Hyaline Cast (Auto) (0-5) /lpf U Epithel Cells (Auto) (0-5) /lpf Urine Bacteria (Auto) (Negative) 05/02/19 Range/Units 09:15 WBC (4.8-10.8) K/uL RBC (4.7-6.1) M/uL Hgb (14.0-18.0) g/dL POC Hgb (14.0-18.0) g/dl Hct (42-52) % POC Hct (42-52) % MCV (80-100) fL MCH (25-34) pg MCHC (32-36) g/dL RDW Std Deviation (36.4-46.3) fL RDW Coeff of Marga (11.5-14.5) % Plt Count (130-400) K/uL MPV (7.4-10.4) fL Immature Gran % (Auto) % Neut % (Auto) % Lymph % (Auto) % Snyder % (Auto) % Eos % (Auto) % Baso % (Auto) % Immature Gran # (Auto) (0.00-0.02) K/uL Neut # (Auto) (1.4-6.5) K/uL Lymph # (Auto) (1.2-3.4) K/uL Snyder # (Auto) (0.11-0.59) K/uL Eos # (Auto) (0-0.5) K/uL Baso # (Auto) (0-0.2) K/uL POC Sodium (135-144) mEq/L Sodium (136-145) mmol/L POC Potassium (3.3-5.0) mEq/L Potassium (3.5-5.1) mmol/L POC Chloride (101-112) mEq/L Chloride (98-107) mmol/L Carbon Dioxide (21-32) mmol/L POC Total CO2 (24-31) mEq/l Anion Gap (3-11) POC Anion Gap (16-25) mmol/L POC BUN (7-18) mg/dl BUN (7-18) mg/dl Creatinine (0.6-1.4) mg/dl POC Creatinine (0.6-1.3) mg/dl Est Cr Clr Drug Dosing ml/min Est GFR ( Amer) Est GFR (Non-Af Amer) BUN/Creatinine Ratio (10-20) Glucose (70-99) mg/dl POC Glucose (other) (70-99) mg/dl Calcium (8.5-10.1) mg/dl POC Ioniz Calcium Marnie (1.12-1.32) mmol/l Total Bilirubin (0.2-1) mg/dl AST (15-37) U/L ALT (12-78) U/L Alkaline Phosphatase (45-117) U/L Total Protein (6.4-8.2) gm/dl Albumin (3.4-5.0) gm/dl Globulin (2.5-4.0) gm/dl Albumin/Globulin Ratio (0.9-2) Lipase (73-393) U/L Urine Color Dark Yellow Urine Appearance Cloudy A (Clear) Urine pH 5.5 (4.5-7.5) Ur Specific Boyd 1.019 (1.000-1.030) Urine Protein 1+ H (Negative) Urine Glucose (UA) Negative (Negative) Urine Ketones Negative (Negative) Urine Blood Trace H (Negative) Urine Nitrite Negative (Negative) Urine Bilirubin Negative (Negative) Urine Urobilinogen Negative (Negative) Ur Leukocyte Esterase 2+ H (Negative) Urine WBC (Auto) >30 H (0-5) /hpf Urine RBC (Auto) 0-4 (0-4) /hpf U Hyaline Cast (Auto) 10-30 H (0-5) /lpf U Epithel Cells (Auto) 5-10 H (0-5) /lpf Urine Bacteria (Auto) Negative (Negative) Imaging Data Radiologist's Impression: Radiology results as stated below per my review and the radiologist's interpretation: XR chest 1V portable CLINICAL HISTORY: 73 years-old Male presenting with Pt c/o wheezing. TECHNIQUE: Portable upright AP view of the chest was obtained. COMPARISON: 01/10/2019. FINDINGS: Atherosclerosis of the aortic arch. Cardiac silhouette enlarged. Mild pulmonary vascular prominence. Heterogeneity lung parenchyma. Lungs may be hyperinflated. Interstitial prominence also evident. Apparent density in the region of the right hilum is likely due to slight patient URDU rotation. No focal opacity. No large effusion or pneumothorax. Osteopenia may be present. IMPRESSION: 1. Findings suggest emphysema. 2. Apparent density in the right hilum is likely due to patient rotation. PA and lateral views could clarify if there is clinical concern for pneumonia. 3. Cardiomegaly with volume overload and suspected congestive change. No remi pulmonary edema. ACT 112: Negative or not required by law. Electronically signed by: Mayank Marquez M.D. 05/02/2019 8:[address] OF THE ABDOMEN AND PELVIS WITHOUT CONTRAST CLINICAL HISTORY: Left flank pain. COMPARISON STUDY: CT of the abdomen and pelvis April 01, 2013. CT of the pancreas January 09, 2019. TECHNIQUE: Axial images of the abdomen and pelvis were obtained without IV contrast. Images were reviewed in the axial, sagittal, and coronal planes. Automated exposure control was utilized for the study. A dose lowering tech nique was utilized adhering to the principles of ALARA. FINDINGS: Emphysema is noted within the lower lungs. No renal, ureteral or bladder calculi are present. There is no hydronephrosis or hydroureter. Interval cholecystectomy is noted. There is minimal infiltration and fluid within the cholecystectomy bed. The hypodensity within the pancreatic tail shown on CT of January 09, 2019 has markedly decreased in size since prior exam. There may be a tiny residual hypodensity. Infiltration adjacent to the pancreatic tail extending into the splenic hilum is noted. The abnormality anterior to the pancreatic tail shown on prior CT has markedly decreased in size. There is no biliary ductal dilatation status post cholecystectomy. There is no evidence for a bowel obstruction. The infrarenal abdominal aorta is ectatic, measuring 2.9 cm. No pneumatosis, free air or portal venous gas is present. The lumbar spine will be reported separately. There are multiple old lumbar spine compression fractures. Bladder wall is mildly thickened. IMPRESSION: 1. No urinary calculi or hydronephrosis. 2. Small amount of fluid, possibly loculated, and infiltration within the cholecystectomy bed. No biliary ductal dilatation. 3. Resolution versus near complete resolution of the pancreatic tail hypodensity shown on prior CT. Minimal adjacent infiltration may be postprocedural however findings could be correlated with clinical evidence for acute pancreatitis. Marked decrease in size of the abnormality anterior to the pancreatic tail shown on prior exam. 4. No bowel obstruction. Normal appendix. 5. Bladder wall thickening which is likely chronic but could be correlated with urinalysis. ACT 112: Negative or not required by law. Electronically signed by: Vickey Hunter M.D. 05/02/2019 9:[address] lumbar spine wo con CT DOSE: CLINICAL HISTORY: Left flank/back pain. TECHNIQUE: Helical images were acquired in transverse plane. Reformatted sagittal and coronal images were reviewed. A dose lowering technique was utilized adhering to the principles of ALARA. CONTRAST: No contrast was administered COMPARISON STUDY: April 01, 2013 FINDINGS: L1-2 level: There is no evidence of significant disc bulge or focal herniation. There is no evidence of spinal or foraminal stenosis. L2-3 level: There is no evidence of significant disc bulge or focal herniation. There is no evidence of spinal or foraminal stenosis. L3-4 level: There is a mild circumferential disc bulge. There is minor spinal canal narrowing. There is no significant foraminal narrowing L4-5 level: There is a mild circumferential disc bulge. There is no significant spinal stenosis. There is no subcutaneous foraminal narrowing. L5-S1 level: There is no evidence of significant disc bulge or focal herniation. There is no evidence of spinal or foraminal stenosis. There is a mild superior endplate T12 compression deformity. This was not included on the preceding study. There are superior and inferior endplate compression deformities at the L1 level, similar to the prior study. There is a minimal superior endplate L1 compression deformity, not present on the prior study but likely chronic. There is a persistent superior endplate L3 compression fracture similar to the preceding study. There is a progressive L4 compression fracture demonstrating approximately 50% loss in height. There is a superior endplate L5 compression fracture, slightly progressive when compared the preceding study. IMPRESSION: 1. Multilevel lumbar vertebral body compression fractures, slightly progressive when compared the prior March 2013 study. ACT 112: Negative or not required by law. Electronically signed by: Jeovanny Rehman M.D. 05/02/2019 9:16 AM Blood Pressure Blood Pressure Findings: Normal blood pressure MDM Narrative This is a 73-year-old male who presents emergency department complaining of left-sided flank pain. Using shared medical decision making with the patient family patient was sent for CAT scan the abdomen pelvis as well as lumbar spine. This was concerning for multiple compression fractures. Patient was given Dilaudid as well as Tylenol here for his pain. Impression & Plan Compression fx, lumbar spine, Acute right flank pain Discharge Plan Visit Data *Final* Discharge Date/Time: 05/02/19 12:04 Chief Complaint: Flank Pain ED Provider: Durga Newman Discharge Problem: Compression fx, lumbar spine, Acute right flank pain Patient Disposition: Admitted As Inpatient Discharge Instructions Interventions: ED Discharge Assessment Last Done: 05/02/19 12:04 Discharge Problem: Compression fx, lumbar spine Qualifiers: Encounter type: initial encounter Lumbar vertebra fracture level: unspecified l umbar vertebra Qualified Code(s): S32.000A - Wedge compression fracture of unspecified lumbar vertebra, initial encounter for closed fracture The scribe's documentation has been prepared under my direction and personally reviewed by me in its entirety. I confirm that the note above accurately reflects all work, treatment, procedures, and medical decision making performed by me.
--- NOTE | 2019-05-02 12:16 | History & Physical Report ---
Date of Service May 02, 2019 Assessment & Plan (1) Left-sided chest wall pain: Presented to ED with left flank vs chest wall pain. Exam and rib films suggest that pain secondary to recent rib fractures. Abnormal UA, but no urinary symptoms. Specific problems as discussed below. Analgesics PRN. (2) Ribs, multiple fractures: Left chest wall tenderness with palpation. X-rays show subacute / healing fractures of left 3rd-8th ribs. Patient does not recall any falls or other trauma, but history unreliable because of dementia. Analgesics PRN. Incentive spirometry / deep breathing. Check vitamin D level. (3) Compression fx, lumbar spine: Noted on CT lumbar spine, but no definite acute fractures. Check vitamin D level. Analgesics PRN. (4) Abnormal urinalysis: UA shows pyuria and bacteruria. Mild leukocytosis. No fever, dysuria, or hematuria. Presented with left flank vs chest wall pain- favor the latter. No renal findings on CT. Urine culture ordered / pending. Best to avoid quinolones because of dementia. Empiric IV ceftriaxone pending culture results. (5) Cirrhosis of liver: Compensated. No longer drinking. (6) Chronic obstructive pulmonary disease: Former smoker. Pulmonary status stable. Continue Anoro Ellipta and Combivent. (7) GERD (gastroesophageal reflux disease): Continue PPI. (8) Dementia: Monitor for delirium. (9) DVT prophylaxis: SQ enoxaparin. Ambulate. (10) Discharge planning issues: Anticipated discharge to home; may need services. PT /OT evals. Family Medicine follow-up with Dr. Spaulding. History of Present Illness Chief Complaint: left chest / flank pain Primary Care Provider: Jeffry Spaulding MD 73-year-old male followed by Dr. Spaulding for Family Medicine. History of COPD, liver disease with portal hypertension, dementia, and other problems. He lives at home with his family. He is ambulatory, but not very active these days. This morning he complained of left-sided flank/chest wall pain. No fever. Chronic cough, unchanged. Chronic dyspnea exertion, no worse than usual. No nausea, vomiting, diarrhea, dysuria, hematuria. No reported trauma. Brought to the ED for evaluation. Received intravenous acetaminophen, intravenous hydromorphone, and lidocaine patch with improvement of his symptoms. Allergies Allergy/AdvReac Type Severity Reaction Status Date / Time No Known Allergies Allergy Verified 05/02/19 08:00 Home Medications Home Medications Medication Instructions Recorded Confirmed Type Centrum Silver 1 tab PO QAM 01/09/19 05/02/19 History Combivent Respimat 1 puffs INH Q6H PRN #4 gm 01/11/19 05/02/19 Rx Anoro Ellipta 1 puffs INH QAM 02/23/19 05/02/19 History omeprazole 40 mg PO QAM 02/23/19 05/02/19 History Past Med/Surg History Medical History (Updated 05/03/19 @ 06:00 by Jeffry Lopez MD) Chronic obstructive pulmonary disease Cirrhosis of liver Compression fx, lumbar spine (Chronic) HX OF, CHRONIC BACK PAIN Dementia GERD (gastroesophageal reflux disease) History of ETOH abuse (Inactive) History of gastritis (Chronic) Pancreatic lesion MONITORING NO TREATMENT Portal hypertensive gastropathy (Inactive) Surgical History (Updated 05/03/19 @ 06:00 by Jeffry Lopez MD) History of anesthesia reaction SEEMS TO SLEEP MORE A FEW DAYS POST OP History of colonoscopy Hx of esophagogastroduodenoscopy Status post cholecystectomy Status post hernia repair Family History Father Colorectal cancer Mother Hypertension Breast cancer Social History Preferred Language: Surinamese Communication Ability: Effective Modeling Teacher Required: No Beliefs That Will Affect Care: None Current Living Situation: Family Current Living Situation Comment: lives with dtr Other Information That Helps Us Care for You: No Feels Safe at Home: Yes Safety Concerns: Feels Safe At This Time Smoking Status: Former smoker Tobacco Type: cigarettes ; Age Started Using Tobacco: 15 ; packs per day: 1.5 ; Cigarettes Per Day: 30-40 DAILY (QUIT 2018 PER DAUGHTER, USING PATCH) ; Do You Dip or Chew Tobacco: No ; Smoking End Date: December 2018 ; Second Hand Exposure: No ; Tobacco Cessation Education Requested by Patient: No Hx Alcohol Use: No Hx Substance Use: No Review of Systems Constitutional: no fever and no weight loss ((wt loss prior to cholecystectomy, has gained wt back)) Eyes: no diplopia and no worsening vision Ear, Nose, Mouth, Throat: no nasal congestion, no sinus pain/pressure and no sore throat Respiratory: as per Subjective / HPI Cardiovascular: no chest pain, no palpitations and no edema Gastrointestinal: no nausea, no vomiting, no constipation, no diarrhea/loose stools, no blood in stools and no melena Musculoskeletal: no joint pain Integumentary: no rash and no new lesions Neurologic: + confusion (dementia, no acute changes); no headache(s) Endocrine: no polydipsia and no polyuria Hematologic / Lymphatic: + easy bleeding; no easy bruising and no lymphadenopathy Physical Exam Constitutional: WD/WN, vitals as above no acute distress Eyes: PERRL, conjunctivae normal, anicteric sclerae ENMT: external ear and nose normal, oropharynx normal Neck: trachea midline, no thyromegaly Respiratory: normal respiratory effort, lungs clear to auscultation Cardiovascular: Rate/Rhythm: regular rate Heart Sounds: no gallop, no murmur and no cardiac rub Vessels: no JVD Extremities: normal capillary refill; no calf tenderness and no edema Chest (Breasts): Additional Comments: left chest wall tenderness without deformity Gastrointestinal (Abdomen): normal bowel sounds, soft, nontender, no hepatosplenomegaly Musculoskeletal: Head/Neck/Chest: neck supple Extremities: strength 5/5 throughout; no cyanosis and no clubbing Skin: no rashes, warm and dry small puncture wound plantar surface right foot without erythema, drainage, tenderness Neurologic: PERRL, EOMI no facial palsy no dysarthria or aphasia patellar DTR's 1/2 bilat Psychiatric: Orientation: alert; + not oriented x 3 (oriented to person, hospital, not time) Affect: euthymic affect Lymphatic: no cervical lymphadenopathy Results & Data Vital Signs (Past 12 Hours) Vital Signs Temp Pulse Pulse Pulse Resp BP BP 05/02/19 12:04 85 19 130/83 05/02/19 10:51 85 85 18 106/69 05/02/19 09:28 82 18 110/62 05/02/19 08:21 75 18 129/89 05/02/19 08:20 80 18 05/02/19 07:52 05/02/19 07:47 36.7 C 81 18 142/92 H Pulse Ox 05/02/19 12:04 94 05/02/19 10:51 94 05/02/19 09:28 94 05/02/19 08:21 94 05/02/19 08:20 94 05/02/19 07:52 95 05/02/19 07:47 95 Laboratory Results Laboratory Results - last 24 hr 05/02/19 05/02/19 05/02/19 07:45 07:45 07:57 WBC 11.48 H RBC 4.15 L Hgb 12.6 L POC Hgb 11.6 L Hct 37.5 L POC Hct 34 L MCV 90.4 MCH 30.4 MCHC 33.6 RDW Std Deviation 44.9 RDW Coeff of Marga 13.4 Plt Count 187 MPV 9.4 Immature Gran % (Auto) 0.3 Neut % (Auto) 72.9 Lymph % (Auto) 17.3 Travis % (Auto) 6.1 Eos % (Auto) 3.1 Baso % (Auto) 0.3 Immature Gran # (Auto) 0.03 H Neut # (Auto) 8.36 H Lymph # (Auto) 1.99 Travis # (Auto) 0.70 H Eos # (Auto) 0.36 Baso # (Auto) 0.04 POC Sodium 135 Sodium 135 L POC Potassium 4.0 Potassium 4.2 POC Chloride 100 L Chloride 102 Carbon Dioxide 28 POC Total CO2 26 Anion Gap 5.0 POC Anion Gap 15.0 L POC BUN 22 H BUN 21 H Creatinine 1.40 POC Creatinine 1.4 H Est Cr Clr Drug Dosing 53.1 Est GFR ( Amer) 57.4 Est GFR (Non-Af Amer) 49.5 BUN/Creatinine Ratio 15.2 Glucose 99 POC Glucose (other) 94 Calcium 9.3 POC Ioniz Calcium Marnie 1.21 Total Bilirubin 0.5 AST 10 L ALT 14 Alkaline Phosphatase 131 H Total Protein 7.3 Albumin 3.6 Globulin 3.7 Albumin/Globulin Ratio 1.0 Lipase 74 Urine Color Urine Appearance Urine pH Ur Specific [place] Urine Protein Urine Glucose (UA) Urine Ketones Urine Blood Urine Nitrite Urine Bilirubin Urine Urobilinogen Ur Leukocyte Esterase Urine WBC (Auto) Urine RBC (Auto) U Hyaline Cast (Auto) U Epithel Cells (Auto) Urine Bacteria (Auto) 05/02/19 09:15 WBC RBC Hgb POC Hgb Hct POC Hct MCV MCH MCHC RDW Std Deviation RDW Coeff of Marga Plt Count MPV Immature Gran % (Auto) Neut % (Auto) Lymph % (Auto) Travis % (Auto) Eos % (Auto) Baso % (Auto) Immature Gran # (Auto) Neut # (Auto) Lymph # (Auto) Travis # (Auto) Eos # (Auto) Baso # (Auto) POC Sodium Sodium POC Potassium Potassium POC Chloride Chloride Carbon Dioxide POC Total CO2 Anion Gap POC Anion Gap POC BUN BUN Creatinine POC Creatinine Est Cr Clr Drug Dosing Est GFR ( Amer) Est GFR (Non-Af Amer) BUN/Creatinine Ratio Glucose POC Glucose (other) Calcium POC Ioniz Calcium Marnie Total Bilirubin AST ALT Alkaline Phosphatase Total Protein Albumin Globulin Albumin/Globulin Ratio Lipase Urine Color Dark Yellow Urine Appearance Cloudy A Urine pH 5.5 Ur Specific [place] 1.019 Urine Protein 1+ H Urine Glucose (UA) Negative Urine Ketones Negative Urine Blood Trace H Urine Nitrite Negative Urine Bilirubin Negative Urine Urobilinogen Negative Ur Leukocyte Esterase 2+ H Urine WBC (Auto) >30 H Urine RBC (Auto) 0-4 U Hyaline Cast (Auto) 10-30 H U Epithel Cells (Auto) 5-10 H Urine Bacteria (Auto) Negative Diagnostic Findings PORTABLE CHEST X-RAY FINDINGS: Atherosclerosis of the aortic arch. Cardiac silhouette enlarged. Mild pulmonary vascular prominence. Heterogeneity lung parenchyma. Lungs may be hyperinflated. Interstitial prominence also evident. Apparent density in the region of the right hilum is likely due to slight patient MIL[place] rotation. No focal opacity. No large effusion or pneumothorax. Osteopenia may be present. IMPRESSION: 1. Findings suggest emphysema. 2. Apparent density in the right hilum is likely due to patient rotation. PA and lateral views could clarify if there is clinical concern for pneumonia. 3. Cardiomegaly with volume overload and suspected congestive change. No remi pulmonary edema. ACT 112: Negative or not required by law. Electronically signed by: Mayank Marquez M.D. 05/02/2019 8:49 AM CHEST X-RAY PA & LATERAL FINDINGS: The chest has an emphysematous configuration. There is no focal pulmonary consolidation. There is no failure. There are no pleural effusions. No hilar lesions are visualized on conventional radiographic evaluation. There is ankylosis of the dorsal spine.[ IMPRESSION: No active disease in the chest. ACT 112: Negative or not required by law. Electronically signed by: Jeovanny Rehman M.D. 05/02/2019 1:22 PM LEFT RIB X-RAYS DISCUSSION: Healing fractures left third through eighth ribs. No evidence of pneumothorax. Lungs remain clear. There is no evidence for soft tissue swelling. IMPRESSION: Healing fractures left third through eighth ribs. ACT 112: Negative or not required by law. The above report was generated using voice recognition software. It may contain grammatical, syntax or spelling errors. Electronically signed by: Cosme Ospina M.D. 05/02/2019 1:[address] LUMBAR SPINE FINDINGS: L1-2 level: There is no evidence of significant disc bulge or focal herniation. There is no evidence of spinal or foraminal stenosis. L2-3 level: There is no evidence of significant disc bulge or focal herniation. There is no evidence of spinal or foraminal stenosis. L3-4 level: There is a mild circumferential disc bulge. There is minor spinal canal narrowing. There is no significant foraminal narrowing L4-5 level: There is a mild circumferential disc bulge. There is no significant spinal stenosis. There is no subcutaneous foraminal narrowing. L5-S1 level: There is no evidence of significant disc bulge or focal herniation. There is no evidence of spinal or foraminal stenosis. There is a mild superior endplate T12 compression deformity. This was not included on the preceding study. There are superior and inferior endplate compression deformities at the L1 level, similar to the prior study. There is a minimal superior endplate L1 compression deformity, not present on the prior study but likely chronic. There is a persistent superior endplate L3 compression fracture similar to the preceding study. There is a progressive L4 compression fracture demonstrating approximately 50% loss in height. There is a superior endplate L5 compression fracture, slightly progressive when compared the preceding study. IMPRESSION: 1. Multilevel lumbar vertebral body compression fractures, slightly progressive when compared the prior March 2013 study. ACT 112: Negative or not required by law. Electronically signed by: Jeovanny Rehman M.D. 05/02/2019 9:[address] ABDOMEN AND PELVIS FINDINGS: Emphysema is noted within the lower lungs. No renal, ureteral or bladder calculi are present. There is no hydronephrosis or hydroureter. Interval cholecystectomy is noted. There is minimal infiltration and fluid within the cholecystectomy bed. The hypodensity within the pancreatic tail shown on CT of January 09, 2019 has markedly decreased in size since prior exam. There may be a tiny residual hypodensity. Infiltration adjacent to the pancreatic tail extending into the splenic hilum is noted. The abnormality anterior to the pancreatic tail shown on prior CT has markedly decreased in size. There is no biliary ductal dilatation status post cholecystectomy. There is no evidence for a bowel obstruction. The infrarenal abdominal aorta is ectatic, measuring 2.9 cm. No pneumatosis, free air or portal venous gas is present. The lumbar spine will be reported separately. There are multiple old lumbar spine compression fractures. Bladder wall is mildly thickened. IMPRESSION: 1. No urinary calculi or hydronephrosis. 2. Small amount of fluid, possibly loculated, and infiltration within the cholecystectomy bed. No biliary ductal dilatation. 3. Resolution versus near complete resolution of the pancreatic tail hypodensity shown on prior CT. Minimal adjacent infiltration may be postprocedural however findings could be correlated with clinical evidence for acute pancreatitis. Marked decrease in size of the abnormality anterior to the pancreatic tail shown on prior exam. 4. No bowel obstruction. Normal appendix. 5. Bladder wall thickening which is likely chronic but could be correlated with urinalysis. ACT 112: Negative or not required by law. Electronically signed by: Vickey Hunter M.D. 05/02/2019 9:19 AM Code Status & VTE Plan Code Status Discussed with patient and daughter. No living will. Full code. VTE Prophylaxis Plan VTE Prophylaxis will be ordered: Yes
[2019-05-02] MEDS ORDERED: ACETAMINOPHEN 500 MG TAB PO PRN (12:20)
[2019-05-02] MEDS ORDERED: IPRATROPIUM BROMIDE/ALBUTEROL respimat INH INH PRN (12:20)
--- NOTE | 2019-05-02 13:24 | XRay Report ---
XR chest 2V PA/lateral CLINICAL HISTORY: Abnormal portable chest x-ray. Follow-up study. COMPARISON STUDY: 05/02/2019 FINDINGS: The chest has an emphysematous configuration. There is no focal pulmonary consolidation. Th ere is no failure. There are no pleural effusions. No hilar lesions are visualized on conventional ra diographic evaluation. There is ankylosis of the dorsal spine.[ IMPRESSION: No active disease in the chest. ACT 112: Negative or not required by law. Electronically signed by: Jeovanny Rehman M.D. 05/02/2019 1:22 PM
--- NOTE | 2019-05-02 13:24 | XRay Report ---
XR ribs LT min 2V CLINICAL HISTORY: left chest wall pain pain COMPARISON: None. DISCUSSION: Healing fractures left third through eighth ribs. No evidence of pneumothorax. Lungs stan in clear. There is no evidence for soft tissue swelling. IMPRESSION: Healing fractures left third through eighth ribs. ACT 112: Negative or not required by law. The above report was generated using voice recognition software. It may contain grammatical, syntax or spelling errors. Electronically signed by: Cosme Ospina M.D. 05/02/2019 1:22 PM
[2019-05-02] MEDS: PANTOprazole 40 MG TAB PO SCH (14:08)
[2019-05-02] MEDS: TRAMADOL HCL 50 MG TABLET PO PRN (21:30)
[2019-05-03 06:43] LABS: Basophils # (auto) 0.03 K/uL (0-0.2); Basophils % (auto) 0.3 %; Eosinophils % (auto) 1.9 %; Hemoglobin 11.5 g/dL (14.0-18.0); Immature Granulocytes # (auto) 0.03 K/uL (0.00-0.02); Immature Granulocytes % (auto) 0.3 %; Lymphocytes # (auto) 2.02 K/uL (1.2-3.4); Lymphocytes % (auto) 19.2 %; Mean Corpuscular Hemoglobin 30.6 pg (25-34); Mean Corpuscular Hgb Conc 33.8 g/dL (32-36); Mean Corpuscular Volume 90.4 fL (80-100); Mean Platelet Volume 9.5 fL (7.4-10.4); Monocytes # (auto) 0.77 K/uL (0.11-0.59); Monocytes % (auto) 7.3 %; Neutrophils # (auto) 7.47 K/uL (1.4-6.5); Platelet Count 186 K/uL (130-400); RDW Coefficient of Variation 13.5 % (11.5-14.5); RDW Standard Deviation 44.5 fL (36.4-46.3); Red Blood Count 3.76 M/uL (4.7-6.1); White Blood Count 10.52 K/uL (4.8-10.8)
[2019-05-03 06:53] LABS: INR 1.1 (0.9-1.1); Partial Thromboplastin Ratio 1.2; Partial Thromboplastin Time 31.9 Seconds (21.0-31.0); Prothrombin Time 10.9 Seconds (9.0-12.0)
[2019-05-03 07:23] LABS: BUN Creatinine Ratio 16.1 (10-20); Calcium 8.6 mg/dl (8.5-10.1); Creatinine Clr Calc Pharmacy 48.9 ml/min; Est GFR (African American) 51.9; Est GFR (Non-African American) 44.8; Potassium 4.3 mmol/L (3.5-5.1)
[2019-05-03] MEDS: UMECLIDINIUM/VILANTEROL 62.5/25MCG 7 PUFFS/INHALER INH SCH (08:58)
[2019-05-03] MEDS: ENOXAPARIN INJ 40 MG/0.4 ML SYR SQ SCH (08:59)
[2019-05-03] MEDS: PANTOprazole 40 MG TAB PO SCH (09:00)
[2019-05-03] MEDS ORDERED: LIDOCAINE 5% 1 PATCH TD SCH (09:00)
[2019-05-03] MEDS: cefTRIAXone SODIUM 2,000 MG in DEXTROSE 5% 50 ML IV SCH (09:03)
[2019-05-03] MEDS ORDERED: ACETAMINOPHEN 325 MG TAB PO PRN (13:44)
--- NOTE | 2019-05-03 13:51 | Hospitalist Progress Note ---
Date of Service May 03, 2019 Assessment & Plan (1) Ribs, multiple fractures: -Patient presented on 05/02/2019 after he was expressing bad left flank pain for which his family member Tosin Kaufman [phone] called the ambulance -CT abdomen did not find evidence of kidney stones or pyelonephritis -X rays show Healing fractures left third through eighth ribs and that providers found palpable chest wall tenderness on exam -Patient does not recall any falls or other trauma, but history unreliable because of dementia. -Analgesics PRN. -Incentive spirometry as of 05/03/2019, pain appears controlled (2) Left-sided chest wall pain: -management as above (3) Compression fx, lumbar spine: -Noted on CT lumbar spine, but no definite acute fractures. Vitamin D deficiency -Vitamin D level is 25 which is less than reference range of 30 to 100 -started Vitamin D oral supplements daily (4) Abnormal urinalysis: possible urinary tract infection -admission with leukocytosis at 12,000; No fever and no dysuria -was started empirically on ceftriaxone -urine culture speciates as Staph which would be possibly skin tamara; continue ceftriaxone and repeat UA, blood cultures are drawn on 05/03/2019, Chronic Kidney Disease -monitor renal function (5) Cirrhosis of liver: -History of Cirrhosis of liver no acute live abnormalities noted on admission CT abdomen (6) Chronic obstructive pulmonary disease: -Former smoker. -no current respiratory exacerbations noted since hospital presentation -Continue Anoro Ellipta and Combivent. (7) GERD (gastroesophageal reflux disease): -Continue PPI. (8) Dementia: -Monitor for delirium. (9) DVT prophylaxis: SQ enoxaparin. (10) Discharge planning issues: -currently as full admission as PT notes on 05/02/2019 initially noted concern for acute inpatient rehabilitation but patient has subsequent better mobility performance on 05/03/2019, blood cultures also drawn while awaiting workup to rule out infectious process Full Code Tosin Kaufman [phone] Subjective Patient seen and examined while sitting up in the chair. he is sitting lunch. currently denies any pain. breathing on room air and denies shortness of breath Patient has some issues with memory. He is able to tell the month and the current president of [email or web address]. he was not able to tell the correct year. He cannot explain the symptoms for which he presented to the hospital for. Medical doctor discussed hospital course with his family member daughter Tosin Kaufman [phone] and she explains that she called the ambulance because patient was having acute flank pain. Patient cannot explain this history and daughter affirms his history of dementia Review of Systems Review of Systems: All systems reviewed & are unremarkable except as noted in HPI & below Physical Exam Constitutional: comfortable Eyes: PERRL, conjunctivae normal, anicteric sclerae EOM intact bilaterally ENMT: external ear and nose normal, oropharynx normal Neck: normal visual inspection Respiratory: normal respiratory effort, lungs clear to auscultation Cardiovascular: Rate/Rhythm: regular rate and regular rhythm Gastrointestinal (Abdomen): normal bowel sounds, soft, nontender, no hepatosplenomegaly Musculoskeletal: Head/Neck/Chest: normocephalic and head atraumatic Neurologic: PERRL, EOMI, accommodation nl, no face palsy, no dysarthria Psychiatric: Orientation: alert and cooperative Results & Data Vital Signs (Past 12 Hours) Vital Signs Temp Pulse Resp BP Pulse Ox 05/03/19 07:40 37.1 C 75 18 147/88 H 94 (1) Compression fx, lumbar spine Encounter type: initial encounter Lumbar vertebra fracture level: unspecified lumbar vertebra Qualified Code(s): S32.000A - Wedge compression fracture of unspecified lumbar vertebra, initial encounter for closed fracture
[2019-05-03] MEDS ORDERED: SODIUM CHLORIDE 0.9% 1000ML 250 ML IV ONE ×2 (14:06→14:20)
[2019-05-03] MEDS: CHOLECALCIFEROL (VITAMIN D) 400 UNITS TABLET PO SCH (14:23)
[2019-05-03 15:01] LABS: Appearance Urine Cloudy (Clear); Bacteria Urine Automated Negative (Negative); Bilirubin Urine Negative (Negative); Blood Urine Negative (Negative); Color Urine Yellow; Epithelial Cell Urine Auto >30 /lpf (0-5); Glucose Urine UA Negative (Negative); Ketones Urine Negative (Negative); Leukocyte Esterase Urine 1+ (Negative); Nitrite Urine Negative (Negative); Protein Urine Trace (Negative); RBC Urine Automated 0-4 /hpf (0-4); Specific Gravity Urine 1.022 (1.000-1.030); Urobilinogen Urine Negative (Negative); WBC Urine Automated >30 /hpf (0-5); pH Urine 5.5 (4.5-7.5)
[2019-05-04 06:18] LABS: Basophils # (auto) 0.03 K/uL (0-0.2); Basophils % (auto) 0.3 %; Eosinophils # (auto) 0.22 K/uL (0-0.5); Eosinophils % (auto) 2.4 %; Hematocrit (blood only) 33.7 % (42-52); Hemoglobin 11.5 g/dL (14.0-18.0); Immature Granulocytes # (auto) 0.03 K/uL (0.00-0.02); Immature Granulocytes % (auto) 0.3 %; Lymphocytes # (auto) 1.96 K/uL (1.2-3.4); Lymphocytes % (auto) 21.7 %; Mean Corpuscular Hemoglobin 30.8 pg (25-34); Mean Corpuscular Hgb Conc 34.1 g/dL (32-36); Mean Corpuscular Volume 90.3 fL (80-100); Mean Platelet Volume 9.5 fL (7.4-10.4); Monocytes # (auto) 0.62 K/uL (0.11-0.59); Monocytes % (auto) 6.9 %; Neutrophils # (auto) 6.16 K/uL (1.4-6.5); Neutrophils % (auto) 68.4 %; Platelet Count 183 K/uL (130-400); RDW Coefficient of Variation 13.5 % (11.5-14.5); RDW Standard Deviation 45.1 fL (36.4-46.3); Red Blood Count 3.73 M/uL (4.7-6.1); White Blood Count 9.02 K/uL (4.8-10.8)
[2019-05-04 06:54] LABS: Albumin Level 3.1 gm/dl (3.4-5.0); Calcium 8.7 mg/dl (8.5-10.1); Creatinine Clr Calc Pharmacy 55.9 ml/min; Est GFR (Non-African American) 52.7; Potassium 4.2 mmol/L (3.5-5.1)
[2019-05-04 06:57] LABS: Albumin Globulin Ratio 0.9 (0.9-2); Bilirubin,Total 0.4 mg/dl (0.2-1); Globulin 3.4 gm/dl (2.5-4.0); Total Protein 6.5 gm/dl (6.4-8.2)
[2019-05-04] MEDS: UMECLIDINIUM/VILANTEROL 62.5/25MCG 7 PUFFS/INHALER INH SCH (08:53)
[2019-05-04] MEDS: ENOXAPARIN INJ 40 MG/0.4 ML SYR SQ SCH (08:55)
[2019-05-04] MEDS: PANTOprazole 40 MG TAB PO SCH (08:57)
[2019-05-04] MEDS: CHOLECALCIFEROL (VITAMIN D) 400 UNITS TABLET PO SCH (09:31)
[2019-05-04] MEDS: cefTRIAXone SODIUM 2,000 MG in DEXTROSE 5% 50 ML IV SCH (10:09)
--- NOTE | 2019-05-04 11:04 | Hospitalist Progress Note ---
Date of Service May 04, 2019 Assessment & Plan (1) Ribs, multiple fractures: -Patient presented on 05/02/2019 after he was expressing bad left flank pain for which his family member Tosin Kaufman [phone] called the ambulance -CT abdomen did not find evidence of kidney stones or pyelonephritis -X rays show Healing fractures left third through eighth ribs and that providers found palpable chest wall tenderness on exam -Patient does not recall any falls or other trauma, but history unreliable because of dementia. -Analgesics PRN. -Incentive spirometry as of 05/03/2019, pain appears controlled (2) Left-sided chest wall pain: -management as above (3) Compression fx, lumbar spine: -Noted on CT lumbar spine, but no definite acute fractures. Vitamin D deficiency -Vitamin D level is 25 which is less than reference range of 30 to 100 -started Vitamin D oral supplements daily (4) Abnormal urinalysis: possible urinary tract infection -admission with leukocytosis at 12,000; No fever and no dysuria -was started empirically on ceftriaxone as daily -admission urine culture speciates as coag negative Staph which is likely skin tamara -repeat urine analysis on 05/03/2019 with no bacteria -05/03/2019 blood cultures are pending -currently remains on ceftriaxone, White blood cell counts have downtrended Chronic Kidney Disease stage III -monitor renal function (5) Cirrhosis of liver: -History of Cirrhosis of liver no acute live abnormalities noted on admission CT abdomen (6) Chronic obstructive pulmonary disease: -Former smoker. -no current respiratory exacerbations noted since hospital presentation -Continue Anoro Ellipta and Combivent. (7) GERD (gastroesophageal reflux disease): -Continue PPI. (8) Dementia: -Monitor for delirium. (9) DVT prophylaxis: SQ enoxaparin. (10) Discharge planning issues: -currently as full admission as PT notes on 05/02/2019 initially noted concern for acute inpatient rehabilitation but patient has subsequent better mobility performance as of 05/03/2019; awaiting blood culture results while on ceftriaxone Full Code Tosin Kaufman [phone] Subjective Patient denies pain anywhere. no back pain. no flank pain. no vomiting no fevers. no chest pain. no shortness of breath. is breathing on room air. cooperative on exam Review of Systems Review of Systems: All systems reviewed & are unremarkable except as noted in HPI & below Physical Exam Constitutional: comfortable Eyes: PERRL, conjunctivae normal, anicteric sclerae EOM intact bilaterally ENMT: external ear and nose normal, oropharynx normal Neck: normal visual inspection Respiratory: normal respiratory effort, lungs clear to auscultation Cardiovascular: Rate/Rhythm: regular rate and regular rhythm Gastrointestinal (Abdomen): normal bowel sounds, soft, nontender, no hepatosplenomegaly Musculoskeletal: Head/Neck/Chest: normocephalic and head atraumatic Neurologic: PERRL, EOMI, accommodation nl, no face palsy, no dysarthria Psychiatric: Orientation: alert and cooperative Results & Data Vital Signs (Past 12 Hours) Vital Signs Temp Pulse Pulse Resp BP Pulse Ox 05/04/19 07:03 36.9 C 86 15 154/89 H 91 05/04/19 02:43 73 116/75 05/03/19 23:38 36.6 C 79 15 169/93 H 93 (1) Compression fx, lumbar spine Encounter type: initial encounter Lumbar vertebra fracture level: unspecified lumbar vertebra Qualified Code(s): S32.000A - Wedge compression fracture of unspecified lumbar vertebra, initial encounter for closed fracture
[2019-05-04] MEDS: TRAMADOL HCL 50 MG TABLET PO PRN (21:19)
[2019-05-05] MEDS ORDERED: HYDROmorphone INJ 0.5 MG/0.5 ML SYR IV STA (00:06)
[2019-05-05] MEDS: CHOLECALCIFEROL (VITAMIN D) 400 UNITS TABLET PO SCH (08:42)
[2019-05-05] MEDS: ENOXAPARIN INJ 40 MG/0.4 ML SYR SQ SCH (08:42)
[2019-05-05] MEDS: UMECLIDINIUM/VILANTEROL 62.5/25MCG 7 PUFFS/INHALER INH SCH (08:43)
[2019-05-05] MEDS: PANTOprazole 40 MG TAB PO SCH (08:43)
[2019-05-05] MEDS: cefTRIAXone SODIUM 2,000 MG in DEXTROSE 5% 50 ML IV SCH (10:42)
--- NOTE | 2019-05-05 11:15 | Hospitalist Progress Note ---
Date of Service May 05, 2019 Assessment & Plan (1) Ribs, multiple fractures: -Patient presented on 05/02/2019 after he was expressing bad left flank pain for which his family member Tosin Kaufman [phone] called the ambulance -CT abdomen did not find evidence of kidney stones or pyelonephritis -X rays show Healing fractures left third through eighth ribs and that providers found palpable chest wall tenderness on exam -Patient does not recall any falls or other trauma, but history unreliable because of dementia. -Analgesics PRN. -Incentive spirometry as of 05/03/2019, pain appears controlled (2) Left-sided chest wall pain: -management as above (3) Compression fx, lumbar spine: -Noted on CT lumbar spine, but no definite acute fractures. -CT lumbar spine wo con performed on 05/02/2019 and comparison study: April 01, 2013 FINDINGS: L1-2 level: There is no evidence of significant disc bulge or focal herniation. There is no evidence of spinal or foraminal stenosis. L2-3 level: There is no evidence of significant disc bulge or focal herniation. There is no evidence of spinal or foraminal stenosis. L3-4 level: There is a mild circumferential disc bulge. There is minor spinal canal narrowing. There is no significant foraminal narrowing L4-5 level: There is a mild circumferential disc bulge. There is no significant spinal stenosis. There is no subcutaneous foraminal narrowing. L5-S1 level: There is no evidence of significant disc bulge or focal herniation. There is no evidence of spinal or foraminal stenosis. (There is a mild superior endplate T12 compression deformity. This was not included on the preceding study. There are superior and inferior endplate compression deformities at the L1 level, similar to the prior study. There is a minimal superior endplate L1 compression deformity, not present on the prior study but likely chronic. There is a persistent superior endplate L3 compression fracture similar to the preceding study. There is a progressive L4 compression fracture demonstrating approximately 50% loss in height. There is a superior endplate L5 compression fracture, slightly progressive when compared the preceding study. IMPRESSION: 1. Multilevel lumbar vertebral body compression fractures, slightly progressive when compared the prior March 2013 study.) Vitamin D deficiency -Vitamin D level is 25 which is less than reference range of 30 to 100 -started Vitamin D oral supplements daily -Discharge medications sent electronically to [facility] [address] [place] [address] of vitamin D supplements and acetaminophen 325 mg every 6 hours as needed for pain (4) Abnormal urinalysis: possible urinary tract infection -admission with leukocytosis at 12,000; No fever and no dysuria -was started empirically on ceftriaxone as daily -admission urine culture speciates as coag negative Staph which is likely skin tamara -repeat urine analysis on 05/03/2019 with no bacteria and urine culture without UTI causing bacteria -05/03/2019 blood cultures with no growth to date -has been on ceftriaxone. no further antibiotics needed on hospital discharge Chronic Kidney Disease stage III -renal function stable (5) Cirrhosis of liver: -History of Cirrhosis of liver no acute live abnormalities noted on admission CT abdomen (6) Chronic obstructive pulmonary disease: -Former smoker. -no current respiratory exacerbations noted since hospital presentation -Continue Anoro Ellipta and Combivent. (7) GERD (gastroesophageal reflux disease): -Continue PPI. (8) Dementia: -Monitor for delirium. (9) DVT prophylaxis: SQ enoxaparin. (10) Discharge planning issues: -currently as full admission as PT notes on 05/02/2019 initially noted conc venice for acute inpatient rehabilitation but patient has subsequent better mobility performance as of 05/03/2019. Discharge to Home with Home Health Services under care of his family members 05/08/2019 8:00 AM Provider Ting Pisano PA-C Department Neurology [facility] 05/09/2019 11:00 AM Provider Jeffry Spaulding III, MD Department Family Practice [facility] Full Code Daughter Tosin Kaufman [phone] Discharge Diagnosis: multiple rib fractures; chest wall pain, Compression fractures of lumbar spine (Noted on CT lumbar spine, but no definite acute fractures), Vitamin D deficiency; Abnormal urinalysis: possible urinary tract infection Subjective Patient is comfortable. laying in the bed. No acute abdominal pain. no back pain. no chest pain. no shortness of breath. no dizziness. no distress. Review of Systems Review of Systems: All systems reviewed & are unremarkable except as noted in HPI & below Physical Exam Constitutional: comfortable Eyes: PERRL, conjunctivae normal, anicteric sclerae EOM intact bilaterally ENMT: external ear and nose normal, oropharynx normal Neck: normal visual inspection Respiratory: normal respiratory effort, lungs clear to auscultation Cardiovascular: Rate/Rhythm: regular rate and regular rhythm Gastrointestinal (Abdomen): normal bowel sounds, soft, nontender, no hepatosplenomegaly Musculoskeletal: Head/Neck/Chest: normocephalic and head atraumatic Neurologic: PERRL, EOMI, accommodation nl, no face palsy, no dysarthria Psychiatric: Orientation: alert and cooperative Results & Data Vital Signs (Past 12 Hours) Vital Signs Temp Pulse Pulse Resp BP Pulse Ox 05/05/19 08:00 36.9 C 75 19 135/80 94 05/05/19 01:25 71 154/81 H (1) Compression fx, lumbar spine Encounter type: initial encounter Lumbar vertebra fracture level: unspecified lumbar vertebra Qualified Code(s): S32.000A - Wedge compression fracture of unspecified lumbar vertebra, initial encounter for closed fracture
--- NOTE | 2019-05-05 11:18 | Discharge Summary ---
Date of Service May 05, 2019 Admission HPI Per Admitting Provider 73-year-old male followed by Dr. Spaulding for Family Medicine. History of COPD, liver disease with portal hypertension, dementia, and other problems. He lives at home with his family. He is ambulatory, but not very active these days. This morning he complained of left-sided flank/chest wall pain. No fever. Chronic cough, unchanged. Chronic dyspnea exertion, no worse than usual. No nausea, vomiting, diarrhea, dysuria, hematuria. No reported trauma. Brought to the ED for evaluation. Received intravenous acetaminophen, intravenous hydromorphone, and lidocaine patch with improvement of his symptoms. Admission Exam Per Admitting Provider WD/WN, vitals as above no acute distress Eyes: PERRL, conjunctivae normal, anicteric sclerae ENMT: external ear and nose normal, oropharynx normal Neck: trachea midline, no thyromegaly Respiratory: normal respiratory effort, lungs clear to auscultation Cardiovascular: Rate/Rhythm: regular rate Heart Sounds: no gallop, no murmur and no cardiac rub Vessels: no JVD Extremities: normal capillary refill; no calf tenderness and no edema Chest (Breasts): Additional Comments: left chest wall tenderness without deformity Gastrointestinal (Abdomen): normal bowel sounds, soft, nontender, no hepatosplenomegaly Musculoskeletal: Head/Neck/Chest: neck supple Extremities: strength 5/5 throughout; no cyanosis and no clubbing Skin: no rashes, warm and dry small puncture wound plantar surface right foot without erythema, drainage, tenderness Neurologic: PERRL, EOMI no facial palsy no dysarthria or aphasia patellar DTR's 1/2 bilat Psychiatric: Orientation: alert; + not oriented x 3 (oriented to person, hospital, not time) Affect: euthymic affect Lymphatic: no cervical lymphadenopathy Principal Diagnosis multiple rib fractures; chest wall pain, Compression fractures of lumbar spine (Noted on CT lumbar spine, but no definite acute fractures), Vitamin D deficiency; Abnormal urinalysis: possible urinary tract infection Discharge Exam Constitutional comfortable Eyes PERRL, conjunctivae normal, anicteric sclerae EOM intact bilaterally ENMT external ear and nose normal, oropharynx normal Neck normal visual inspection Respiratory normal respiratory effort, lungs clear to auscultation Cardiovascular Rate/Rhythm: regular rate and regular rhythm Gastrointestinal (Abdomen) normal bowel sounds, soft, nontender, no hepatosplenomegaly Musculoskeletal Head/Neck/Chest: normocephalic and head atraumatic Neurologic PERRL, EOMI, accommodation nl, no face palsy, no dysarthria Psychiatric Orientation: alert and cooperative Discharge Data Allergies Allergy/AdvReac Type Severity Reaction Status Date / Time No Known Allergies Allergy Verified 05/02/19 08:00 Consultations 05/02/19 11:03 ED Decision to Admit Stat 05/03/19 07:54 Consult Case Management - Discharge Planning Routine Ordered Studies 05/02/19 07:48 CT abd pelvis wo con Stat CT lumbar spine wo con Stat Hospital Course (1) Ribs, multiple fractures: -Patient presented on 05/02/2019 after he was expressing bad left flank pain for which his family member Tosin Kaufman [phone] called the ambulance -CT abdomen did not find evidence of kidney stones or pyelonephritis -X rays show Healing fractures left third through eighth ribs and that providers found palpable chest wall tenderness on exam -Patient does not recall any falls or other trauma, but history unreliable because of dementia. -Analgesics PRN. -Incentive spirometry as of 05/03/2019, pain appears controlled (2) Left-sided chest wall pain: -management as above (3) Compression fx, lumbar spine: -Noted on CT lumbar spine, but no definite acute fractures. -CT lumbar spine wo con performed on 05/02/2019 and comparison study: April 01, 2013 FINDINGS: L1-2 level: There is no evidence of significant disc bulge or focal herniation. There is no evidence of spinal or foraminal stenosis. L2-3 level: There is no evidence of significant disc bulge or focal herniation. There is no evidence of spinal or foraminal stenosis. L3-4 level: There is a mild circumferential disc bulge. There is minor spinal canal narrowing. There is no significant foraminal narrowing L4-5 level: There is a mild circumferential disc bulge. There is no significant spinal stenosis. There is no subcutaneous foraminal narrowing. L5-S1 level: There is no evidence of significant disc bulge or focal herniation. There is no evidence of spinal or foraminal stenosis. (There is a mild superior endplate T12 compression deformity. This was not included on the preceding study. There are superior and inferior endplate compression deformities at the L1 level, similar to the prior study. There is a minimal superior endplate L1 compression deformity, not present on the prior study but likely chronic. There is a persistent superior endplate L3 compression fracture similar to the preceding study. There is a progressive L4 compression fracture demonstrating approximately 50% loss in height. There is a superior endplate L5 compression fracture, slightly progressive when compared the preceding study. IMPRESSION: 1. Multilevel lumbar vertebral body compression fractures, slightly progressive when compared the prior March 2013 study.) Vitamin D deficiency -Vitamin D level is 25 which is less than reference range of 30 to 100 -started Vitamin D oral supplements daily -Discharge medications sent electronically to [facility] [address] [place] [address] of vitamin D supplements and acetaminophen 325 mg every 6 hours as needed for pain (4) Abnormal urinalysis: possible urinary tract infection -admission with leukocytosis at 12,000; No fever and no dysuria -was started empirically on ceftriaxone as daily -admission urine culture speciates as coag negative Staph which is likely skin tamara -repeat urine analysis on 05/03/2019 with no bacteria and urine culture without UTI causing bacteria -05/03/2019 blood cultures with no growth to date -has been on ceftriaxone. no further antibiotics needed on hospital discharge Chronic Kidney Disease stage III -renal function stable (5) Cirrhosis of liver: -History of Cirrhosis of liver no acute live abnormalities noted on admission CT abdomen (6) Chronic obstructive pulmonary disease: -Former smoker. -no current respiratory exacerbations noted since hospital presentation -Continue Anoro Ellipta and Combivent. (7) GERD (gastroesophageal reflux disease): -Continue PPI. (8) Dementia: -Monitor for delirium. (9) DVT prophylaxis: SQ enoxaparin. (10) Discharge planning issues: -currently as full admission as PT notes on 05/02/2019 initially noted concern for acute inpatient rehabilitation but patient has subsequent better mobility performance as of 05/03/2019. Discharge to Home with Home Health Services under care of his family members 05/08/2019 8:00 AM Provider Ting Pisano PA-C Department Neurology [facility] 05/09/2019 11:00 AM Provider Jeffry Spaulding III, MD Department Family Practice [facility] Full Code Daughter Tosin Kaufman [phone] Discharge Diagnosis: multiple rib fractures; chest wall pain, Compression fractures of lumbar spine (Noted on CT lumbar spine, but no definite acute fractures), Vitamin D deficiency; Abnormal urinalysis: possible urinary tract infection Total Time Total Time Spent Total Time Spent (In Minutes): 40 minutes Total Time Includes: Examination of the Patient, Discharge Planning, Medication Reconciliation and Communication With Other Providers Discharge Plan Discharge Items Patient Disposition: Home - Home Health Services Reason For Visit: FLANK PAIN Discharge Diagnosis: multiple rib fractures; chest wall pain, Compression fractures of lumbar spine (Noted on CT lumbar spine, but no definite acute fractures), Vitamin D deficiency; Abnormal urinalysis: possible urinary tract infection Condition on Discharge: Good Activity: Resume your previous activity Non-emergency contact: Primary Care Provider Call non-emergency contact if: you have any medication questions Follow-up/Referrals: Jeffry Spaulding MD [Primary Care Provider] - Diet: Regular Addtl Attending Provider Instructions: Discharge to Home with Home Health Services under care of his family members 05/08/2019 8:00 AM Provider Ting Pisano PA-C Department Neurology [facility] 05/09/2019 11:00 AM Provider Jeffry Spaulding III, MD Department Family Practice [facility] Discharge medications sent electronically to [facility] [address] [place] [address] of vitamin D supplements and acetaminophen 325 mg every 6 hours as needed for pain Addtl [employer] Provider Instructions: Rib X rays 05/02/2019: Healing fractures left third through eighth ribs. No evidence of pneumothorax. Lungs remain clear. There is no evidence for soft tissue swelling CT lumbar spine wo con performed on 05/02/2019 and comparison study: April 01, 2013 FINDINGS: L1-2 level: There is no evidence of significant disc bulge or focal herniation. There is no evidence of spinal or foraminal stenosis. L2-3 level: There is no evidence of significant disc bulge or focal herniation. There is no evidence of spinal or foraminal stenosis. L3-4 level: There is a mild circumferential disc bulge. There is minor spinal canal narrowing. There is no significant foraminal narrowing L4-5 level: There is a mild circumferential disc bulge. There is no significant spinal stenosis. There is no subcutaneous foraminal narrowing. L5-S1 level: There is no evidence of significant disc bulge or focal herniation. There is no evidence of spinal or foraminal stenosis. There is a mild superior endplate T12 compression deformity. This was not included on the preceding study. There are superior and inferior endplate compression deformities at the L1 level, similar to the prior study. There is a minimal superior endplate L1 compression deformity, not present on the prior study but likely chronic. There is a persistent superior endplate L3 compression fracture similar to the preceding study. There is a progressive L4 compression fracture demonstrating approximately 50% loss in height. There is a superior endplate L5 compression fracture, slightly progressive when compared the preceding study. IMPRESSION: 1. Multilevel lumbar vertebral body compression fractures, slightly progressive when compared the prior March 2013 study. Pending Studies at Discharge: No Stand-Alone Forms: [facility], Smoking Cessation Medications and DC Order Prescriptions: New cholecalciferol (vitamin D3) [Vitamin D3] 10 mcg (400 unit) Tablet 400 unit PO QAM 30 Days Qty: 30 RF: 0 acetaminophen 325 mg tablet 325 mg PO Q6H PRN (Reason: pain) 5 Days Qty: 20 RF: 0 Continued Centrum Silver 0.4-300-250 mg-mcg-mcg Tablet 1 tab PO QAM RF: 0 Combivent Respimat 20-100 mcg/actuation mist 1 puffs INH Q6H PRN (Reason: wheezing) Qty: 4 RF: 0 omeprazole 40 mg Capsule,Delayed Release(Dr/Ec) 40 mg PO QAM RF: 0 Anoro Ellipta 62.5-25 mcg/actuation blister with device 1 puffs INH QAM RF: 0 Admission Data Admit Date/Time: 05/03/19 13:46 Attending Provider: Shayne Ferro Admit Provider: Jeffry Lopez Primary Care Provider: Jeffry Spaulding Other Providers: Jeffry Lopez ; [facility]Ellie ; [facility] ; [facility]
== END 2019-05-05 14:56 | disposition home health service (06) | DRG 184 ==
LOC: 3N 07:32 → ED 07:32 → SUATTDRO 11:26 → 3N 12:04

== ENCOUNTER 2021-05-05 22:48 | Inpatient (IN) ==
[2021-05-06] MEDS ORDERED: SODIUM CHLORIDE 0.9% 500 ML IV ONE (00:04)
[2021-05-06] MEDS ORDERED: ACETAMINOPHEN 1,000 MG/100 ML VIAL IV STA (00:05)
[2021-05-06 00:18] LABS: Hematocrit (blood only) 36.8 % (42-52); Hemoglobin 12.7 g/dL (14.0-18.0); Mean Corpuscular Hgb Conc 34.5 g/dL (32-36); Mean Corpuscular Volume 89.8 fL (80-100); Mean Platelet Volume 11.4 fL (7.4-10.4); Platelet Count 151 K/uL (130-400); RDW Coefficient of Variation 13.7 % (11.5-14.5); RDW Standard Deviation 45.5 fL (36.4-46.3); White Blood Count 11.03 K/uL (4.8-10.8)
[2021-05-06 00:31] LABS: Albumin Globulin Ratio 1.3 (0.9-2); Albumin Level 3.9 gm/dl (3.4-5.0); BUN Creatinine Ratio 20.6 (10-20); Bilirubin,Total 0.8 mg/dl (0.2-1.0); Calcium 9.3 mg/dl (8.5-10.1); Creatinine Clr Calc Pharmacy 27.7 ml/min; Est GFR (Non-African American) 25.1 ml/min; Globulin 3.1 gm/dl (2.5-4.0); Potassium 3.5 mmol/L (3.5-5.1)
--- NOTE | 2021-05-06 00:32 | Emergency Department Note ---
History of Present Illness General Chief complaint: Fall Stated complaint: Fall Time Seen by Provider: 05/05/21 23:06 Source: family and EMS Mode of arrival: EMS Limitations: altered mental status (Dementia) History of Present Illness Provider complaint: fall Treatments prior to arrival: none This is a 75-year-old male brought in by EMS due to a fall at home. Patient currently staying with daughter although typically lives with granddaughter however her family is on vacation. Patient's daughter had to leave him alone briefly in order to run to her place of employment. She states when she got home he was on the floor. When they reviewed tape from cameras that were installed in the house after prior fall they saw him standing with his walker and falling backwards. She states he appeared to try and get up onto all fours and hold onto the walker however he could not get back up. She states he did not appear to hit his head although did strike his back on an air conditioning unit at the wall. Daughter denies any recent illness although states her daughter's family were just diagnosed with COVID and this is the family the patient typically lives with. She states she has not noticed over the last several days any cough or URI symptoms in the patient. Patient does have a prior history of tobacco abuse and underlying COPD and does use nebulizers daily. She states he does not use any antiplatelet or anticoagulation therapy. Patient does typically need to use his walker at all times for ambulation. Pt seen during a time of high acuity and national emergency pandemic while wearing PPE. Home Medications Medication Instructions Recorded Confirmed Type tzyiiyew-yog-szzsm acid 0.4 1 tab PO QAM 01/09/19 05/06/21 History mg-lycopene 300 mcg-lutein 250 mcg tablet (Centrum Silver) ipratropium 20 mcg-albuterol 100 1 puffs INH Q6H PRN #4 gm 01/11/19 05/06/21 Rx mcg/actuation mist for inhalation (Combivent Respimat) omeprazole 40 mg capsule,delayed 40 mg PO QAM 02/23/19 05/06/21 History release calcium carbonate 600 mg-vitamin 1 tab PO QAM 05/08/19 05/06/21 History D3 10 mcg (400 unit) chewable tablet (Calcium 600 with Vitamin D3) ipratropium 0.5 mg-albuterol 3 mg 3 ml INH Q6H PRN #90 ml 05/08/19 05/06/21 Rx (2.5 mg base)/3 mL nebulization soln alendronate 70 mg tablet (Fosamax) 70 mg PO WK 10/15/19 05/06/21 History atorvastatin 10 mg tablet 10 mg PO DAILY 05/06/21 05/06/21 History Allergies Allergy/AdvReac Type Severity Reaction Status Date / Time No Known Allergies Allergy Verified 05/06/21 00:13 Past Med/Surg History Medical History (Updated 05/06/21 @ 21:37 by Zeenat Topete DO) Chronic obstructive pulmonary disease LAST EXAC DEC 2018 > WAS HOSPITALIZED AT [facility] Cirrhosis of liver FOLLOWS DR. CROUCH ([facility]) Compression fx, lumbar spine HX OF, CHRONIC BACK PAIN Degenerative disc disease Dementia VASCULAR GERD (gastroesophageal reflux disease) History of ETOH abuse History of gastritis Osteoarthritis Pancreatic lesion MONITORING NO TREATMENT Portal hypertensive gastropathy Ribs, multiple fractures 3-8 ON LEFT SIDE Surgical History History of anesthesia reaction SEEMS TO SLEEP MORE A FEW DAYS POST OP History of colonoscopy Hx of esophagogastroduodenoscopy Status post cholecystectomy 03/05/19 Grade 1 view Mac 3 blade Status post hernia repair Family History Father Colorectal cancer Mother Hypertension Breast cancer Social History Smoking Status: Former smoker Age Started Using Tobacco: 15; packs per day: 1.5; Years Smoked: 50; Cigarettes Per Day: 30-40 DAILY (QUIT 2018 PER DAUGHTER, USING PATCH); Second Hand Exposure: No; Hx Alcohol Use: No Hx Substance Use: No Preferred Language: Sami Communication Ability: Impaired Fleet Service Manager Required: No Beliefs That Will Affect Care: None Current Living Situation: Family Current Living Situation Comment: lives with dtr Other Information That Helps Us Care for You: No Feels Safe at Home: Yes Assistive Devices: Glasses Review of Systems A total of 10 systems reviewed and were otherwise negative All systems reviewed & are unremarkable except as noted in HPI & below Physical Exam Vital Signs Vital Signs - 24 hr 05/05/21 23:18 05/05/21 23:27 05/06/21 01:41 Temperature 36.6 C 36.6 C Temperature Source Oral Oral Pulse Rate 97 H Pulse Rate [Finger] 97 H 84 Pulse Rhythm Regular Pulse Rhythm [Finger] Regular Regular Pulse Strength Normal Pulse Strength [Finger] Normal Normal Respiratory Rate 18 18 18 Respiratory Effort / Characteristics Non-Labored Spontaneous Non-Labored Spontaneous Non-Labored Spontaneous Respiratory Depth Normal Normal Normal Blood Pressure 94/62 L Blood Pressure [Right Arm] 94/62 L 102/79 Blood Pressure Mean 72 Blood Pressure Mean [Right Arm] 72 86 Blood Pressure Position Sitting Blood Pressure Position [Right Arm] Sitting Lying Pulse Oximetry 100 100 93 Oxygen Delivery Method Room Air Room Air Room Air Sepsis Recent Fever Within 48 Hours No Sepsis New/Unexplained Change in Mental Status No Sepsis Action Taken by Nursing No Action Required 05/06/21 03:41 05/06/21 05:04 Temperature Temperature Source Pulse Rate Pulse Rate [Finger] 93 H 89 Pulse Rhythm Pulse Rhythm [Finger] Regular Regular Pulse Strength Pulse Strength [Finger] Normal Normal Respiratory Rate 20 16 Respiratory Effort / Characteristics Non-Labored Spontaneous Non-Labored Spontaneous Respiratory Depth Normal Normal Blood Pressure Blood Pressure [Right Arm] 154/92 H 154/88 H Blood Pressure Mean Blood Pressure Mean [Right Arm] 112 110 Blood Pressure Position Blood Pressure Position [Right Arm] Lying Pulse Oximetry 95 95 Oxygen Delivery Method Room Air Room Air Sepsis Recent Fever Within 48 Hours Sepsis New/Unexplained Change in Mental Status Sepsis Action Taken by Nursing GENERAL: alert, well nourished, no distress, non-toxic, trying to get out of bed HEAD: nc/at, no evidence of facial trauma, no kovacs signs, no raccoon eyes EYE EXAM: normal conjunctiva, PERRL and EOM's grossly intact OROPHARYNX: no exudate, no erythema, lips, buccal mucosa, and tongue normal and mucous membranes are moist NECK: supple, no nuchal rigidity, no adenopathy, non-tender LUNGS: Clear to auscultation. Normal chest wall mechanics, no w/r/r HEART: no murmurs, S1 normal and S2 normal CHEST WALL: Appearance of barrel chest, no evidence of chest wall trauma, no c repitus, no overlying ecchymosis ABDOMEN: abdomen soft, non-tender, normo-active bowel sounds, no masses, no rebound or guarding. PELVIS: Stable to compression, nontender with palpation BACK: Back is symmetrical on inspection and there is no deformity, no midline tenderness, no CVA tenderness. No evidence of trauma. Faint superficial abrasion noted to the posterolateral aspect of the left shoulder. SKIN: no rashes and no bruising UPPER EXTREMITIES: upper extremities are grossly normal. FROM, nml pulses b/l. Right elbow without bony tenderness, skin tear/abrasion noted. No other bony tenderness, patient moving bilateral upper extremities without difficulty. No obvious deformity. LOWER EXTREMITIES: No pitting edema. FROM, nml pulses b/l. No evidence of trauma or deformity. NEURO EXAM: Confused, cranial nerves II-XII grossly intact, normal speech although inappropriate answer to some questions, no gross weakness of arms, no gross weakness of legs. Gross sensation intact. Course Course 2346: Discussed with daughter who describes events as related in HPI. She is currently staying with the patient and her daughter's house where he typically lives with her daughter's family. He does typically use a walker. She denies any recent cough or cold symptoms however states her daughter's family was recently found to be positive for COVID. 0115: Upon discussion with EMS personnel who brought the patient in, they state family relayed to them that he had had decreased oral intake recently. They state family denied any cough or cold symptoms and made no mention of possible COVID exposure to them. Patient still trying to climb out of bed, pulling at monitor leads. 0302: Pt still too agitated for CT. VS stable. Additional medications given. 0445: Discussed with hospitalist. Additional medication given in order to facilitate 0455: Daughter Tosin updated. She states she is the POA. Her number is [phone]. She states she and the family have discussed end-of-life wishes and he is a DNR/DNI. 0600: Pt starting to calm, will attempt to take to CT. Administered Medications Atorvastatin Calcium (Atorvastatin 10 Mg Tab) 10 mg PO DAILY JUSTYNA Stop: 06/05/21 09:24 Last Admin: 05/06/21 12:46 Dose: Not Given Documented by: [id number] Fluticasone Furoate (Fluticasone Furoate 100mcg 14 Puffs/Inhaler) 1 puffs INH DAILY JUSTYNA; Protocol Stop: 06/05/21 09:59 Last Admin: 05/06/21 12:46 Dose: Not Given Documented by: [id number] Heparin Sodium (Porcine) (Heparin Sod 5,000 Unit/0.5 Ml Vial) 5,000 units SQ Q8 [facility] Stop: 06/05/21 13:59 Last Admin: 05/06/21 14:13 Dose: 5,000 units Documented by: [id number] Sodium Chloride (1/2 Nss) 1,000 mls @ 80 mls/hr IV .[id number] [facility] Stop: 05/07/21 15:14 Last Admin: 05/06/21 14:14 Dose: 80 mls/hr Documented by: [id number] Miscellaneous (*Alendronate*Order Awaiting Action) 1 ea N/A QS [facility] Stop: 06/05/21 15:59 Last Admin: 05/06/21 14:14 Dose: Not Given Documented by: [id number] Multivitamins/Minerals (Calcium 600mg + Vit D 400 Iu Tab) 1 tab PO QAM [facility] Stop: 06/05/21 09:59 Last Admin: 05/06/21 12:46 Dose: Not Given Documented by: [id number] Multivitamins/Minerals (Cerovite Adv Formula Tab) 1 tab PO QAM [facility] Stop: 06/05/21 09:59 Last Admin: 05/06/21 12:46 Dose: Not Given Documented by: [id number] Pantoprazole Sodium (Pantoprazole 40 Mg Tab) 40 mg PO QAM [facility] Stop: 06/05/21 09:59 Last Admin: 05/06/21 12:47 Dose: Not Given Documented by: [id number] Discontinued Medications Haloperidol Lactate (Haloperidol Lactate 5 Mg/Ml 1 Ml Vial) 2.5 mg IM NOW STA Stop: 05/06/21 02:43 Last Admin: 05/06/21 02:45 Dose: 2.5 mg Documented by: [id number] Haloperidol Lactate (Haloperidol Lactate 5 Mg/Ml 1 Ml Vial) 2.5 mg IM NOW STA Stop: 05/06/21 03:25 Last Admin: 05/06/21 03:32 Dose: 2.5 mg Documented by: [id number] Sodium Chloride (Nss) 500 mls @ 999 mls/hr IV .Q31M ONE Stop: 05/06/21 00:34 Last Infusion: 05/06/21 03:15 Dose: 0 mls/hr Documented by: [id number] Admin: 05/06/21 00:19 Dose: 999 mls/hr Documented by: [id number] Acetaminophen (Ofirmev) 1,000 mg in 100 mls @ 400 mls/hr IV NOW STA Stop: 05/06/21 00:19 Last Infusion: 05/06/21 03:14 Dose: 0 mls/hr Documented by: [id number] Admin: 05/06/21 00:26 Dose: 400 mls/hr Documented by: [id number] Lorazepam (Ativan) 0.5 mg in 1 mls @ 1 mls/min IV NOW STA Stop: 05/06/21 00:52 Last Admin: 05/06/21 01:05 Dose: 1 mls/min Documented by: [id number] Sodium Chloride (Nss) 500 mls @ 125 mls/hr IV .Q4H JUSTYNA Stop: 06/05/21 00:59 Last Infusion: 05/06/21 10:02 Dose: 0 mls/hr Documented by: [id number] Admin: 05/06/21 08:07 Dose: 125 mls/hr Documented by: [id number] Admin: 05/06/21 07:52 Dose: Not Given Documented by: [id number] Admin: 05/06/21 07:52 Dose: Not Given Documented by: [id number] Ceftriaxone Sodium (Rocephin) 2,000 mg in 70 mls @ 140 mls/hr IV NOW STA Stop: 05/06/21 02:33 Last Infusion: 05/06/21 03:31 Dose: 0 mls/hr Documented by: [id number] Admin: 05/06/21 03:00 Dose: 140 mls/hr Documented by: [id number] Lorazepam (Ativan) 0.5 mg in 1 mls @ 1 mls/min IV NOW STA Stop: 05/06/21 02:16 Last Admin: 05/06/21 02:23 Dose: 1 mls/min Documented by: [id number] Lorazepam (Ativan) 0.5 mg in 1 mls @ 1 mls/min IV NOW STA Stop: 05/06/21 05:22 Last Admin: 05/06/21 06:55 Dose: 1 mls/min Documented by: [id number] Lorazepam (Ativan) 0.5 mg in 1 mls @ 1 mls/min IV NOW STA Stop: 05/06/21 07:25 Last Admin: 05/06/21 10:43 Dose: Not Given Documented by: [id number] Influenza Virus Vaccine (Flu Vaccine-High Dose (Fluzone-Hd) Pf 65+ 0.7ml Syr) 0.7 ml IM .ONCE ONE Stop: 05/06/21 13:46 Last Admin: 05/06/21 16:19 Dose: 0.7 ml Documented by: [id number] Olanzapine (Olanzapine 10 Mg/2.1 Ml Sdv) 5 mg IM NOW STA Stop: 05/06/21 04:20 Last Admin: 05/06/21 04:44 Dose: 5 mg Documented by: [id number] Olanzapine (Olanzapine 10 Mg/2.1 Ml Sdv) 5 mg IM NOW STA Stop: 05/06/21 07:25 Last Admin: 05/06/21 07:44 Dose: 5 mg Documented by: [id number] Pneumococcal Polyvalent Vaccine (Pneumococcal Polysaccharide Vaccine 25mcg/0.5ml Vial/Syr) 25 mcg IM .ONCE ONE Stop: 05/06/21 13:46 Last Admin: 05/06/21 16:20 Dose: 25 mcg Documented by: [id number] Critical Care Time Critical Care Time: Yes Total Critical Care Time: 55 Critical care of 55 min performed to assess and manage high likelihood of life- threatening agitation and EUGENIO, involving labs and imaging performed with assessment to evaluate agitation and EUGENIO diagnosis with frequent reassessment. This time includes bedside time, treatment discussions with patient /family/consultants, documentation time and excludes procedure time. Medical Decision Making Differential Diagnosis Differential diagnoses include major intracranial, cervical, spinal, thoracic, abdominal, pelvic and neurologic injury. Fracture, contusion, sprain, strain, laceration, abrasions included as well. Medical Records Attestation: I reviewed the patient's medical records. Home Medications Current Medication List: was personally reviewed by me Laboratory Data Attestation: I reviewed the patient's lab results. Result diagrams: 05/05/21 23:27 05/05/21 23:27 Lab Results 05/05/21 05/05/21 05/05/21 Range/Units 23:27 23: 23:27 WBC 11.03 H (4.8-10.8) K/uL RBC 4.10 L (4.7-6.1) M/uL Hgb 12.7 L (14.0-18.0) g/dL Hct 36.8 L (42-52) % MCV 89.8 (80-100) fL MCH 31.0 (25-34) pg MCHC 34.5 (32-36) g/dL RDW Std Deviation 45.5 (36.4-46.3) fL RDW Coeff of Marga 13.7 (11.5-14.5) % Plt Count 151 (130-400) K/uL MPV 11.4 H (7.4-10.4) fL Immature Gran % (Auto) 0.4 % Neut % (Auto) 86.9 % Lymph % (Auto) 8.3 % Davis % (Auto) 4.3 % Eos % (Auto) 0.0 % Baso % (Auto) 0.1 % Neut # (Auto) 9.59 H (1.4-6.5) K/uL Lymph # (Auto) 0.92 L (1.2-3.4) K/uL Davis # (Auto) 0.47 (0.11-0.59) K/uL Eos # (Auto) 0.00 (0-0.5) K/uL Baso # (Auto) 0.01 (0-0.2) K/uL Immature Gran # (Auto) 0.04 H (0.00-0.02) K/uL Hyposegmented Neuts 1+ Sodium 144 (136-145) mmol/L Potassium 3.5 (3.5-5.1) mmol/L Chloride 112 H (98-107) mmol/L Carbon Dioxide 21 (21-32) mmol/L Anion Gap 11 (3-11) BUN 50 H (6-23) mg/dl Creatinine 2.43 H (0.6-1.4) mg/dl Est Cr Clr Drug Dosing 27.7 ml/min Est GFR ( Amer) 29.0 ml/min Est GFR (Non-Af Amer) 25.1 ml/min BUN/Creatinine Ratio 20.6 H (10-20) Glucose 191 H (70-99) mg/dl Calcium 9.3 (8.5-10.1) mg/dl Total Bilirubin 0.8 (0.2-1.0) mg/dl AST 42 H (13-39) U/L ALT 40 (7-52) U/L Alkaline Phosphatase 108 H (34-104) U/L Total Creatine Kinase 53 (39-308) U/L Total Protein 7.0 (6.0-8.3) gm/dl Albumin 3.9 (3.4-5.0) gm/dl Globulin 3.1 (2.5-4.0) gm/dl Albumin/Globulin Ratio 1.3 (0.9-2) Urine Color Urine Appearance (Clear) Urine pH (4.5-7.5) Ur Specific [place] (1.000-1.030) Urine Protein (Negative) Urine Glucose (UA) (Negative) Urine Ketones (Negative) Urine Blood (Negative) Urine Nitrite (Negative) Urine Bilirubin (Negative) Urine Urobilinogen (Negative) Ur Leukocyte Esterase (Negative) Urine WBC (Auto) (0-5) /hpf Urine RBC (Auto) (0-4) /hpf U Hyaline Cast (Auto) (0-5) /lpf U Epithel Cells (Auto) (0-5) /lpf Urine Bacteria (Auto) (Negative) SARS-CoV-2, RNA, NAAT (NEGATIVE) 05/06/21 05/06/21 Range/Units 00:02 01:15 WBC (4.8-10.8) K/uL RBC (4.7-6.1) M/uL Hgb (14.0-18.0) g/dL Hct (42-52) % MCV (80-100) fL MCH (25-34) pg MCHC (32-36) g/dL RDW Std Deviation (36.4-46.3) fL RDW Coeff of Marga (11.5-14.5) % Plt Count (130-400) K/uL MPV (7.4-10.4) fL Immature Gran % (Auto) % Neut % (Auto) % Lymph % (Auto) % Davis % (Auto) % Eos % (Auto) % Baso % (Auto) % Neut # (Auto) (1.4-6.5) K/uL Lymph # (Auto) (1.2-3.4) K/uL Davis # (Auto) (0.11-0.59) K/uL Eos # (Auto) (0-0.5) K/uL Baso # (Auto) (0-0.2) K/uL Immature Gran # (Auto) (0.00-0.02) K/uL Hyposegmented Neuts Sodium (136-145) mmol/L Potassium (3.5-5.1) mmol/L Chloride (98-107) mmol/L Carbon Dioxide (21-32) mmol/L Anion Gap (3-11) BUN (6-23) mg/dl Creatinine (0.6-1.4) mg/dl Est Cr Clr Drug Dosing ml/min Est GFR ( Amer) ml/min Est GFR (Non-Af Amer) ml/min BUN/Creatinine Ratio (10-20) Glucose (70-99) mg/dl Calcium (8.5-10.1) mg/dl Total Bilirubin (0.2-1.0) mg/dl AST (13-39) U/L ALT (7-52) U/L Alkaline Phosphatase (34-104) U/L Total Creatine Kinase (39-308) U/L Total Protein (6.0-8.3) gm/dl Albumin (3.4-5.0) gm/dl Globulin (2.5-4.0) gm/dl Albumin/Globulin Ratio (0.9-2) Urine Color Dark Yellow Urine Appearance Cloudy A (Clear) Urine pH 5.5 (4.5-7.5) Ur Specific [place] 1.019 (1.000-1.030) Urine Protein 2+ H (Negative) Urine Glucose (UA) Negative (Negative) Urine Ketones Trace H (Negative) Urine Blood Trace H (Negative) Urine Nitrite Negative (Negative) Urine Bilirubin 1+ H (Negative) Urine Urobilinogen Negative (Negative) Ur Leukocyte Esterase 1+ H (Negative) Urine WBC (Auto) >30 H (0-5) /hpf Urine RBC (Auto) 0-4 (0-4) /hpf U Hyaline Cast (Auto) 1-5 (0-5) /lpf U Epithel Cells (Auto) >30 H (0-5) /lpf Urine Bacteria (Auto) 4+ H (Negative) SARS-CoV-2, RNA, NAAT POSITIVE A* (NEGATIVE) Imaging Data Radiologist's Impression: Cervical Spine CT 05/05/21 23:54 CT cervical spine wo con CLINICAL HISTORY: trauma TECHNIQUE: Multidetector row helical CT of the cervical spine was performed without administration of intravenous contrast. Coronal and sagittal reformations were obtained. Automated dose lowering techniques and/or adjustment according to patient size were utilized for this exam. Comparison: None available at the time of this dictation. FINDINGS: No acute fractures or subluxations are identified. The alignment is normal. Degenerative changes are seen in the visualized spine. Emphysema is seen. IMPRESSION: Degenerative changes without evidence of acute bony injury. ACT 112: Negative or not required by law. Electronically signed by: Viktor Eckert M.D. 05/06/2021 8:16 AM Chest X-Ray 05/05/21 23:54 XR chest 1V portable CLINICAL HISTORY: trauma COMPARISON STUDY: Chest radiograph May 02, 2019. FINDINGS: Lung volumes are normal. Lungs are clear. There is no pneumothorax or pleural effusion. Cardiac size is normal. Mediastinal contours are normal. There is no evidence for pulmonary edema. Old left-sided rib fractures noted. There is underlying emphysema. The patient is rotated. IMPRESSION: No acute cardiopulmonary findings. ACT 112: Negative or not required by law. Electronically signed by: Vickey Hunter M.D. 05/06/2021 7:[address] 05/05/21 23:54 CT OF THE HEAD WITHOUT CONTRAST CLINICAL HISTORY: Trauma. COMPARISON STUDY: Head CT April 01, 2013. TECHNIQUE: Helical axial images of the head were obtained without IV contrast. Automated exposure control was utilized for the study. A dose lowering technique was utilized adhering to the principles of ALARA. FINDINGS: This exam is mildly compromised by motion artifact. No acute intracranial hemorrhage, midline shift or mass effect is present. 4.9 x 2.9 cm CSF attenuation lesion within the right middle cranial fossa is unchanged since head CT of April 01, 2013. This represents an arachnoid cyst. Mild ventricular dilatation is due to atrophy. Moderate atrophy is present. White matter hypodensity suggests small vessel disease. Several old lacunar infarcts within left basal ganglia are present. No displaced calvarial fractures are identified. Right maxillary sinus mucosal thickening is present. IMPRESSION: 1. No acute intracranial findings. Exam mildly compromised by motion artifact. 2. No displaced calvarial fractures identified. ACT 112: Negative or not required by law. Electronically signed by: Vickey Hunter M.D. 05/06/2021 8:17 AM Elbow X-Ray 05/06/21 00:05 XR elbow RT min 3V routine CLINICAL HISTORY: abrasion COMPARISON: Right elbow radiographs December 06, 2011. FINDINGS: Several soft tissue calcifications of the medial right elbow are unchanged from radiographs of December 06, 2011. Alignment of the right elbow is anatomic. There is no evidence for a joint effusion. No acute fracture is identified. No osseous lesion is noted. IMPRESSION: No acute fracture or joint effusion of the right elbow. ACT 112: Negative or not required by law. Electronically signed by: Vickey Hunter M.D. 05/06/2021 7:37 AM Pelvis X-Ray 05/06/21 00:05 XR pelvis 1-2V routine CLINICAL HISTORY: trauma COMPARISON: CT of the abdomen and pelvis May 02, 2019. FINDINGS: Sacroiliac joints and symphysis pubis are intact. No acute fracture is identified within the pelvis or hips. There is extensive vascular calcification. IMPRESSION: No acute fracture identified within the pelvis or hips. ACT 112: Negative or not required by law. Electronically signed by: Vickey Hunter M.D. 05/06/2021 7:36 AM Shoulder X-Ray 05/06/21 00:05 XR shoulder LT min 2V routine CLINICAL HISTORY: trauma COMPARISON: None FINDINGS: Apparent slight elevation of the distal left clavicle with respect to the acromion is likely within normal limits. There is no acute fracture. 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 IMPRESSION: No acute fracture or dislocation within the left shoulder. ACT 112: Negative or not required by law. Electronically signed by: Vickey Hunter M.D. 05/06/2021 7:38 AM Abdomen/Pelvis CT 05/06/21 00:59 CT abd pelvis wo con CLINICAL HISTORY: Status post fall with pain in the abdomen and back COMPARISON STUDY: 05/02/2019 CT DOSE: TECHNIQUE: Standard CT of the Abdomen and Pelvis was performed without IV contrast. The patient did not receive oral contrast. A dose lowering technique was utilized adhering to the principles of ALARA. FINDINGS: Lung base: The lung bases are clear. There is minimal right middle lobe atelectasis. Coronary artery calcification is present. Abdominal cavity: There is no evidence for abdominal mass, adenopathy or ascites. There is no evidence for intra-abdominal or pelvic hematoma. Liver: The liver is homogeneous in attenuation on these limited noncontrast images.. Spleen: The spleen is homogeneous in attenuation on these limited noncontrast images. Pancreas: The pancreas is homogeneous in attenuation on these limited noncontrast images. Gall Bladder: Surgical clips are present from previous cholecystectomy. Adrenal glands: The adrenal glands are normal in size and attenuation on these limited noncontrast images. Kidneys: The kidneys are homogeneous in attenuation on these limited noncontrast images. There is no evidence for gross renal mass, calculus or hydronephrosis bilaterally. Bowel: The bowel loops are normally placed within the abdomen and pelvis without evidence for dilatation or obstruction. There is no evidence for mass lesion. There are no inflammatory changes present. There is no evidence for free air. There is no evidence for an inflamed appendix. Bladder: There is no evidence for focal bladder wall thickening, calculus or diverticulum. : There is no evidence for pelvic mass or adenopathy. Vasculature: There is no evidence for focal aneurysmal dilatation of the abdominal aorta. Extensive atherosclerotic calcification is present. Osseous structures: There is no acute osseous pathology. Degenerative changes are seen within the spine. IMPRESSION: 1. No acute intra-abdominal or pelvic abnormality on these limited noncontrast images. 2. Nonacute findings are delineated above. ACT 112: Negative or not required by law. Electronically signed by: Fermín Fontenot M.D. 05/06/2021 8:18 AM ECG Data Attestation: I personally reviewed and interpreted this ECG as follows: Indication: + weakness Rate (beats per minute): 99 Rhythm: + normal sinus ECG Intervals/blocks: + Normal QRS and + Normal QT ECG Athena: + Normal ECG ST segments: + Normal ST segments MDM Narrative This is a 75 yo brought in by family due to concern for fall. Patient with dementia/agitation. INitially found to have mild hypotension which did improve with NSS bolus. Labs sent due to concern for hypotension along with age and unclear circumstances surrounding his fall. Daughter was able to give some additional information although concern for COVID not initially disclosed to EMS per their report. I suspect decreased oral intake over the last several days led to dehydration/weakness which contributed to fall, hypotension, and likely EUGENIO. UA suboptimal, pt covered for UTI as a precaution, culture pending. No evidence on eventual CT of obstructive pathology or pyelo. I do not suspect bacteremia/sepsis. Patient found to be COVID positive, likely contracted from ill family members he lives with. Patient given cautious IVF rehydration. Significant time spent cautious given patient medication for sedation to try and calm him enough to obtain CT imaging. This was done with considering for age, underlying pulmonary hx, VS, EUGENIO, and evaluation of EKG. No evidence of acute trauma on eventual CT imaging. An order was placed for continuous cardiac monitoring. The monitor shows a rate of _88_ with _normal sinus_ rhythm. Impression & Plan Syncope, Dementia, EUGENIO (acute kidney injury), Fall, Generalized weakness, Acute UTI (urinary tract infection), COVID-19 Discharge Plan Visit Data Chief Complaint: Fall Stated Complaint: Fall ED Provider: Zeenat Topete Discharge Problem: Syncope, Dementia, EUGENIO (acute kidney injury), Fall, Generalized weakness, Acute UTI (urinary tract infection), COVID-19 Patient Disposition: Admitted As Inpatient Discharge Instructions Interventions: ED Discharge Assessment Last Done: 05/06/21 09:30 Discharge Problem: Syncope Qualifiers: Syncope type: unspecified Qualified Code(s): R55 - Syncope and collapse Dementia Qualifiers: Dementia type: unspecified type Dementia behavioral disturbance: with behavioral disturbance Qualified Code(s): F03.91 - Unspecified dementia with behavioral disturbance Fall Qualifiers: Encounter type: initial encounter Qualified Code(s): W19.XXXA - Unspecified fall, initial encounter
[2021-05-06] MEDS ORDERED: LORazepam 0.5 MG/1 ML VIAL IV STA ×4 (00:51→07:24)
[2021-05-06 01:12] LABS: Basophils # (auto) 0.01 K/uL (0-0.2); Basophils % (auto) 0.1 %; Immature Granulocytes # (auto) 0.04 K/uL (0.00-0.02); Immature Granulocytes % (auto) 0.4 %; Lymphocytes # (auto) 0.92 K/uL (1.2-3.4); Lymphocytes % (auto) 8.3 %; Monocytes # (auto) 0.47 K/uL (0.11-0.59); Monocytes % (auto) 4.3 %; Neutrophils # (auto) 9.59 K/uL (1.4-6.5); Neutrophils % (auto) 86.9 %
[2021-05-06 01:56] LABS: Appearance Urine Cloudy (Clear); Bacteria Urine Automated 4+ (Negative); Blood Urine Trace (Negative); Color Urine Dark Yellow; Epithelial Cell Urine Auto >30 /lpf (0-5); Glucose Urine UA Negative (Negative); Ketones Urine Trace (Negative); Leukocyte Esterase Urine 1+ (Negative); Nitrite Urine Negative (Negative); Protein Urine 2+ (Negative); RBC Urine Automated 0-4 /hpf (0-4); Specific Gravity Urine 1.019 (1.000-1.030); Urobilinogen Urine Negative (Negative); WBC Urine Automated >30 /hpf (0-5); pH Urine 5.5 (4.5-7.5)
[2021-05-06 02:03] LABS: Bilirubin Urine 1+ (Negative)
[2021-05-06] MEDS ORDERED: cefTRIAXone SODIUM 2,000 MG/70 ML BAG IV STA (02:04)
[2021-05-06] MEDS ORDERED: HALOPERIDOL LACTATE 5 MG/ML 1 ML VIAL IM STA ×2 (02:42→03:24)
[2021-05-06] MEDS ORDERED: OLANZapine 10 MG/2.1 ML SDV IM STA ×2 (04:19→07:24)
--- NOTE | 2021-05-06 07:35 | XRay Report ---
XR chest 1V portable CLINICAL HISTORY: trauma COMPARISON STUDY: Chest radiograph May 02, 2019. FINDINGS: Lung volumes are normal. Lungs are clear. There is no pneumothorax or pleural effusion. Car diac size is normal. Mediastinal contours are normal. There is no evidence for pulmonary edema. Old l eft-sided rib fractures noted. There is underlying emphysema. The patient is rotated. IMPRESSION: No acute cardiopulmonary findings. ACT 112: Negative or not required by law. Electronically signed by: Vickey Hunter M.D. 05/06/2021 7:34 AM
--- NOTE | 2021-05-06 07:37 | XRay Report ---
XR pelvis 1-2V routine CLINICAL HISTORY: trauma COMPARISON: CT of the abdomen and pelvis May 02, 2019. FINDINGS: Sacroiliac joints and symphysis pubis are intact. No acute fracture is identified within t he pelvis or hips. There is extensive vascular calcification. IMPRESSION: No acute fracture identified within the pelvis or hips. ACT 112: Negative or not required by law. Electronically signed by: Vickey Hunter M.D. 05/06/2021 7:36 AM
--- NOTE | 2021-05-06 07:39 | XRay Report ---
XR elbow RT min 3V routine CLINICAL HISTORY: abrasion COMPARISON: Right elbow radiographs December 06, 2011. FINDINGS: Several soft tissue calcifications of the medial right elbow are unchanged from radiograph s of December 06, 2011. Alignment of the right elbow is anatomic. There is no evidence for a joint effu dominic. No acute fracture is identified. No osseous lesion is noted. IMPRESSION: No acute fracture or joint effusion of the right elbow. ACT 112: Negative or not required by law. Electronically signed by: Vickey Hunter M.D. 05/06/2021 7:37 AM
--- NOTE | 2021-05-06 07:40 | XRay Report ---
XR shoulder LT min 2V routine CLINICAL HISTORY: trauma COMPARISON: None FINDINGS: Apparent slight elevation of the distal left clavicle with respect to the acromion is like ly within normal limits. There is no acute fracture. 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 IMPRESSION: No acute fracture or dislocation within the left shoulder. ACT 112: Negative or not required by law. Electronically signed by: Vickey Hunter M.D. 05/06/2021 7:38 AM
[2021-05-06] MEDS: SODIUM CHLORIDE 0.9% 500 ML IV SCH ×2 (07:52→08:07)
--- NOTE | 2021-05-06 08:15 | Electrocardiogram Report ---
Test Reason : Blood Pressure : / mmHG Vent. Rate : 100 BPM Atrial Rate : 100 BPM P-R Int : 160 ms QRS Dur : 086 ms QT Int : 348 ms P-R-T Axes : 051 058 062 degrees QTc Int : 448 ms Poor data quality, interpretation may be adversely affected Sinus rhythm Diffuse Minor Nonspecific ST and T wave abnormality Abnormal ECG When compared with ECG of 11-JAN-2019 07:32, Premature supraventricular complexes are no longer Present Confirmed by Jett Rankin ([id number]) on 05/06/2021 8:15:24 AM Referred By: REFERRED SELF Confirmed By:Jett Rankin
--- NOTE | 2021-05-06 08:17 | Electrocardiogram Report ---
Test Reason : Blood Pressure : / mmHG Vent. Rate : 099 BPM Atrial Rate : 099 BPM P-R Int : 144 ms QRS Dur : 078 ms QT Int : 350 ms P-R-T Axes : 046 058 055 degrees QTc Int : 449 ms Poor data quality, interpretation may be adversely affected Normal sinus rhythm with occasional Premature atrial complexes Normal ECG When compared with ECG of 05-MAY-2021 23:00, Premature atrial complexes now present Confirmed by Jett Rankin ([id number]) on 05/06/2021 8:16:57 AM Referred By: REFERRED SELF Confirmed By:Jett Rankin
--- NOTE | 2021-05-06 08:17 | CT Scan Report ---
CT cervical spine wo con CLINICAL HISTORY: trauma TECHNIQUE: Multidetector row helical CT of the cervical spine was performed without administration of intravenous contrast. Coronal and sagittal reformations were obtained. Automated dose lowering techn iques and/or adjustment according to patient size were utilized for this exam. Comparison: None available at the time of this dictation. FINDINGS: No acute fractures or subluxations are identified. The alignment is normal. Degenerative changes are seen in the visualized spine. Emphysema is seen. IMPRESSION: Degenerative changes without evidence of acute bony injury. ACT 112: Negative or not required by law. Electronically signed by: Viktor Eckert M.D. 05/06/2021 8:16 AM
--- NOTE | 2021-05-06 08:18 | CT Scan Report ---
CT OF THE HEAD WITHOUT CONTRAST CLINICAL HISTORY: Trauma. COMPARISON STUDY: Head CT April 01, 2013. TECHNIQUE: Helical axial images of the head were obtained without IV contrast. Automated exposure con trol was utilized for the study. A dose lowering technique was utilized adhering to the principles o f ALARA. FINDINGS: This exam is mildly compromised by motion artifact. No acute intracranial hemorrhage, midli ne shift or mass effect is present. 4.9 x 2.9 cm CSF attenuation lesion within the right middle crani al fossa is unchanged since head CT of April 01, 2013. This represents an arachnoid cyst. Mild vent ricular dilatation is due to atrophy. Moderate atrophy is present. White matter hypodensity suggests small vessel disease. Several old lacunar infarcts within left basal ganglia are present. No displace d calvarial fractures are identified. Right maxillary sinus mucosal thickening is present. IMPRESSION: 1. No acute intracranial findings. Exam mildly compromised by motion artifact. 2. No displaced calvarial fractures identified. ACT 112: Negative or not required by law. Electronically signed by: Vickey Hunter M.D. 05/06/2021 8:17 AM
--- NOTE | 2021-05-06 08:19 | CT Scan Report ---
CT abd pelvis wo con CLINICAL HISTORY: Status post fall with pain in the abdomen and back COMPARISON STUDY: 05/02/2019 CT DOSE: TECHNIQUE: Standard CT of the Abdomen and Pelvis was performed without IV contrast. The patient did not receive oral contrast. A dose lowering technique was utilized adhering to the principles of DUNIA Callaway. FINDINGS: Lung base: The lung bases are clear. There is minimal right middle lobe atelectasis. Coronary artery calcification is present. Abdominal cavity: There is no evidence for abdominal mass, adenopathy or ascites. There is no evidenc e for intra-abdominal or pelvic hematoma. Liver: The liver is homogeneous in attenuation on these limited noncontrast images.. Spleen: The spleen is homogeneous in attenuation on these limited noncontrast images. Pancreas: The pancreas is homogeneous in attenuation on these limited noncontrast images. Gall Bladder: Surgical clips are present from previous cholecystectomy. Adrenal glands: The adrenal glands are normal in size and attenuation on these limited noncontrast im ages. Kidneys: The kidneys are homogeneous in attenuation on these limited noncontrast images. There is no evidence for gross renal mass, calculus or hydronephrosis bilaterally. Bowel: The bowel loops are normally placed within the abdomen and pelvis without evidence for dilatat ion or obstruction. There is no evidence for mass lesion. There are no inflammatory changes present. There is no evidence for free air. There is no evidence for an inflamed appendix. Bladder: There is no evidence for focal bladder wall thickening, calculus or diverticulum. : There is no evidence for pelvic mass or adenopathy. Vasculature: There is no evidence for focal aneurysmal dilatation of the abdominal aorta. Extensive a therosclerotic calcification is present. Osseous structures: There is no acute osseous pathology. Degenerative changes are seen within the spi ne. IMPRESSION: 1. No acute intra-abdominal or pelvic abnormality on these limited noncontrast images. 2. Nonacute findings are delineated above. ACT 112: Negative or not required by law. Electronically signed by: Fermín Fontenot M.D. 05/06/2021 8:18 AM
--- NOTE | 2021-05-06 08:21 | CT Scan Report ---
CT thoracic spine wo con CLINICAL HISTORY: trauma TECHNIQUE: Multidetector row helical CT of the thoracic spine was performed without administration of intravenous contrast. Coronal and sagittal reformations were obtained. Automated dose lowering techn iques and/or adjustment according to patient size were utilized for this exam. Comparison: None available at the time of this dictation. FINDINGS: No acute fractures are identified. Degenerative changes are noted in the visualized spine. Vertebral body alignment is within normal limits. Surrounding soft tissues are unremarkable. IMPRESSION: No evidence of acute fracture or traumatic subluxation. ACT 112: Negative or not required by law. Electronically signed by: Viktor Eckert M.D. 05/06/2021 8:20 AM
--- NOTE | 2021-05-06 09:14 | History and Physical Report ---
DATE OF SERVICE: 05/06/2021. CHIEF COMPLAINT: Fall. HISTORY OF PRESENT ILLNESS: This is a 75-year-old male with past medical history significant for severe dementia, history of pancreatic cyst,COPD, liver cirrhosis, portal hypertensive gastropathy, GERD, stage III chronic kidney disease, history of collapsed vertebra of lumbar region, anemia who currently lives with the daughter, presents with the fall. Patient who lives with the granddaughter, but granddaughter is on vacation, for last few days he is living with his daughter. Daughter went outside for brief moment for her employment place,, when she came back he was found on the floor. They have cameras in the house,when checked he seemed fell down and could not get up. As per the ER, the EMS also reviewed the cameras and they felt that he might have had syncopal episode and was brought in here. The patient was agitated in ER, he was given Ativan, Haldol and Zyprexa to calm him down. Now slowly he is resting. He was found to have COVID positive and also UTI and his creatinine is 2.4, baseline in 04/2009 creatinine seems to be around 1.3-1.4. As per daughter, the patient's granddaughter also recently tested for COVID positive with whom he lives. He has chronic cough, usually his appetite is up and down but last 1 week, his appetite has been generally down, not eating much. No nausea, no vomiting. She does not think he has diarrhea. No complaining of any pain. No fevers at home. Patient is not COVID vaccinated. The patient is not able to answer any questions. Could not get any history from the patient. As per daughter he walks with the walker and eats regular food. He knows his name and generally does not know where he lives and does not recognize all of the family members and as per the daughter patient is DNR/DNI. ALLERGIES: No known drug allergies. PAST MEDICAL HISTORY: As mentioned above. PAST SURGICAL HISTORY: EGDs, EGD with endoscopic ultrasound, ERCP, inguinal orchiopexy inguinal approach outpatient as a child. MEDICATIONS: Patient is on alendronate 70 mg p.o. weekly, atorvastatin 10 mg p.o. daily, calcium plus vitamin D one tablet daily, Centrum Silver 1 tablet daily, DuoNeb inhalation q. 6 hours p.r.n., Combivent 1 puff inhalation q. 6 hours p.r.n., omeprazole 40 mg p.o. a.m. FAMILY HISTORY: Significant for father had colon cancer, mother has breast cancer, sister has breast cancer. SOCIAL HISTORY: , currently lives with the granddaughter. Used to smoke half pack a day for 40 years, quit smoking 2 years ago. History of alcohol abuse, quit in 2012 as per the daughter. No drug use. REVIEW OF SYMPTOMS: Unobtainable as patient is confused. PHYSICAL EXAMINATION: VITAL SIGNS: Temperature 36.6, pulse 89, respiratory rate 16, blood pressure 154/88, oxygen 95% on room air. HEENT: Pupils equal, round, and reactive to light. Atraumatic. NECK: No JVD. No neck masses. CARDIOVASCULAR: S1 and S2 heard. Regular rate and rhythm. No murmur, no gallop. RESPIRATORY SYSTEM: Normal AP diameter. No accessory muscle use. No wheezing, no crackles. ABDOMEN: Soft, bowel sounds present, nontender, no distention. CENTRAL NERVOUS SYSTEM: The patient is confused. Not answering any questions. Moves extremities. EXTREMITIES: No edema, no erythema. LABORATORY DATA: WBC 11.03, hemoglobin 12.7, hematocrit 36.8, platelets 151. Sodium 144, potassium 3.5, chloride 112, bicarbonate 21, BUN 250, creatinine 2.43, serum glucose 191, calcium 9.3, total bilirubin 0.8, AST 42, ALT 40, alkaline phosphatase 108, total creatine kinase 53. Urinalysis +1 leukocyte esterase, +4 bacteria. SARS-CoV-2 RNA positive. IMAGING STUDIES: Pending. EKG, sinus rhythm with occasional PVCs at a rate of 89. ASSESSMENT AND PLAN: This is a [id number] who has a history of liver cirrhosis, severe dementia, chronic obstructive pulmonary disease, who is currently living in the daughter's house, previously was in granddaughter's house, comes with the fall and found to have urinary tract infection and COVID. 1. Fall. Questionable syncope probably from urinary tract infection and also has COVID. Monitor in tele. Gentle fluids. Consult Cardiology if any concerns. PT/OT when stable. 2. COVID: Currently not requiring any oxygen. Patient is not vaccinated. We will monitor. Continue his home inhalers. 3. History of urinary tract infection: ER Started Rocephin which will be continued and will follow the cultures. 4. Chronic obstructive pulmonary disease: Continue home inhalers and nebs p.r.n. 5. Liver cirrhosis and portal gastropathy: On omeprazole, we will monitor. Check ammonia levels, not on lactulose or diuretics. 6. Hyperlipidemia, on statin. 7. History of alcohol abuse, last drink was in 2012 as per the daughter. 8. History of tobacco, his last smoking was 2 years ago. 9. Severe dementia and agitation: Received dose of Ativan, Haldol and Zyprexa in ER. We will place him on IM Zyprexa p.r.n. and closely monitor. May need one-to-one. 10. Gastroesophageal reflux disease, on omeprazole. 11. Acute kidney injury on chronic kidney disease stage III. Baseline creatinine stayed around 1.3-1.4, currently creatinine is 2.4, getting fluids. Try to Avoid nephrotoxins. follow repeat labs. 12. Deep venous thrombosis prophylaxis, placed on heparin subcu. DISPOSITION: Closely monitor in med/tele. PT/OT prior to discharge. Social service to help with discharge planning. Job ID: [id number] [facility]ITALJavan
[2021-05-06] MEDS ORDERED: ALBUT/IPRATROP 3MG/0.5MG NEB 3 ML VIAL INH PRN (09:25)
[2021-05-06] MEDS ORDERED: NITROGLYCERIN SL 0.4 MG/TAB TAB SL PRN (09:25)
[2021-05-06] MEDS ORDERED: OLANZapine 10 MG/2.1 ML SDV IM PRN (09:25)
[2021-05-06] MEDS ORDERED: ONDANSETRON INJ 2 MG/ML 2 ML VIAL IV PRN (09:25)
[2021-05-06] MEDS ORDERED: IPRATROPIUM BROMIDE/ALBUTEROL respimat INH INH PRN (09:25)
[2021-05-06] MEDS ORDERED: Albuterol HFA 8 GM Inhaler (Combivent Respimat P&T Subs) INH PRN (10:04)
[2021-05-06] MEDS ORDERED: Ipratropium HFA Inhaler (Combivent Respimat P&T Subs) INH PRN (10:04)
[2021-05-06] MEDS: ATORVASTATIN 10 MG TAB PO SCH (12:46)
[2021-05-06] MEDS: CALCIUM 600MG + VIT D 400 IU TAB PO SCH (12:46)
[2021-05-06] MEDS: CEROVITE ADV FORMULA TAB PO SCH (12:46)
[2021-05-06] MEDS: FLUTICASONE FUROATE 100MCG 14 PUFFS/INHALER INH SCH (12:46)
[2021-05-06] MEDS: PANTOprazole 40 MG TAB PO SCH (12:47)
[2021-05-06] MEDS ORDERED: Flu Vaccine-High Dose (Fluzone-HD) PF 65+ 0.7mL SYR IM ONE (13:45)
[2021-05-06] MEDS ORDERED: PNEUMOCOCCAL Polysaccharide Vaccine 25mcg/0.5mL vial/Syr IM ONE (13:45)
[2021-05-06] MEDS: HEPARIN SOD 5,000 UNIT/0.5 ML VIAL SQ SCH ×2 (14:13→21:29)
[2021-05-06] MEDS: [UNRECOGNIZED DRUG - REMARK] SCH ×2 (14:14→23:29)
[2021-05-06] MEDS: SODIUM CHLORIDE 0.45 % 1,000 ML IV SCH (14:14)
--- NOTE | 2021-05-06 19:45 | Hospitalist Progress Note ---
Date of Service May 06, 2021 Assessment & Plan (1) Metabolic encephalopathy: Plan: 1. Fall. 1. Metabolic encephalopathy Questionable syncope probably from urinary tract infection and also has COVID. Monitor in tele. Gentle fluids. Multiple imagings done at admission: CT CS/CXR/head CT/elbow x-ray/pelvis x- ray/shoulder x-ray times left/CT abdomen pelvis ---> No acute findings appreciated. At baseline, patient is alert to self, on and off confused and walks with walker. On examination patient confused and unable to cooperate likely secondary to UTI versus COVID versus other etiology. PT/OT Cardio if concerns of arrhythmia over tele. Supportive management 2. COVID: Currently not requiring any oxygen. Patient is not vaccinated. We will monitor. Continue his home inhalers. 3. UTI: UA suggestive of UTI ER Started Rocephin 05/06 which will be continued and will follow the cultures. Admitting urine culture pending #. EUGENIO /CKD Baseline creatinine around 1.4 Creatinine elevated to 2.3 on 05/06 Likely secondary to poor oral intake leading to prerenal etiology. Continue with IV fluid, monitor BMP daily. 4. Chronic obstructive pulmonary disease: Continue home inhalers and nebs p.r.n. 5. Liver cirrhosis and portal gastropathy: On omeprazole, we will monitor. Check ammonia levels, not on lactulose or diuretics. 6. Hyperlipidemia, on statin. 7. History of alcohol abuse, last drink was in 2012 as per the daughter. 8. History of tobacco, his last smoking was 2 years ago. 9. Severe dementia and agitation: Received dose of Ativan, Haldol and Zyprexa in ER. We will place him on IM Zyprexa p.r.n. and closely monitor. May need one-to-one. 10.. Gastroesophageal reflux disease, on omeprazole. 11. Acute kidney injury on chronic kidney disease stage III. Baseline creatinine stayed around 1.3-1.4, currently creatinine is 2.4, getting fluids. Try to Avoid nephrotoxins. follow repeat labs. 12. Deep venous thrombosis prophylaxis, placed on heparin subcu. Admission and Anticipated Discharge Date Admission Date: May 06, 2021 Subjective Patient was lying in bed, on room air, confused, and unable to cooperate. ROS N/A due to cognition status. Per RN, patient is incontinent, mildly agitated in the morning but calmed down later on. Typically patient is continent but waits until the last minute to go to the bathroom per family per RN. Physical Exam Physical Exam: GENERAL: Confused. NAD, on RA. HEENT: No pallor, no icterus. Pupils equal, round and reactive to light. Oral mucosa dry. NECK: No JVD, no neck masses. HEART: S1 and S2 heard. Regular rate and rhythm. No murmur, no gallop. RESPIRATORY SYSTEM: Normal AP diameter. No accessory muscle use. No wheezing, no crackles. Decreased breath sounds. ABDOMEN: Soft, bowel sounds present, nontender, no distention. CENTRAL NERVOUS SYSTEM: No facial droop. Speech is clear. Obeys simple commands. Moves extremities. EXTREMITIES: No edema, no erythema seen. Results & Data Results & Data ([facility]) Vital Signs (Past 12 Hours) Vital Signs Temp Pulse Pulse Resp BP Pulse Ox 05/06/21 18:50 92 H 05/06/21 15:53 36.8 C 80 20 123/78 90 05/06/21 14:30 87 05/06/21 11:30 37.2 C 89 24 115/78 92 05/06/21 08:46 81 20 115/84 94
[2021-05-07] MEDS ORDERED: ACETAMINOPHEN 1000 MG/100 ML IV IV ONE (02:16)
[2021-05-07] MEDS: SODIUM CHLORIDE 0.45 % 1,000 ML IV SCH ×2 (02:40→18:06)
[2021-05-07] MEDS: HEPARIN SOD 5,000 UNIT/0.5 ML VIAL SQ SCH ×3 (05:49→21:49)
[2021-05-07] MEDS: cefTRIAXone SODIUM 2,000 MG in DEXTROSE 5% 50 ML IV SCH (05:49)
[2021-05-07 06:22] LABS: Basophils # (auto) 0.01 K/uL (0-0.2); Basophils % (auto) 0.1 %; Eosinophils # (auto) 0.04 K/uL (0-0.5); Eosinophils % (auto) 0.5 %; Hematocrit (blood only) 34.4 % (42-52); Hemoglobin 11.7 g/dL (14.0-18.0); Immature Granulocytes # (auto) 0.04 K/uL (0.00-0.02); Immature Granulocytes % (auto) 0.5 %; Lymphocytes # (auto) 1.72 K/uL (1.2-3.4); Lymphocytes % (auto) 20.2 %; Mean Corpuscular Hemoglobin 30.3 pg (25-34); Mean Corpuscular Volume 89.1 fL (80-100); Mean Platelet Volume 11.2 fL (7.4-10.4); Monocytes # (auto) 0.59 K/uL (0.11-0.59); Monocytes % (auto) 6.9 %; Neutrophils # (auto) 6.11 K/uL (1.4-6.5); Neutrophils % (auto) 71.8 %; Platelet Count 155 K/uL (130-400); RDW Coefficient of Variation 13.6 % (11.5-14.5); RDW Standard Deviation 44.4 fL (36.4-46.3); Red Blood Count 3.86 M/uL (4.7-6.1); White Blood Count 8.51 K/uL (4.8-10.8)
[2021-05-07 06:55] LABS: Albumin Globulin Ratio 1.2 (0.9-2); Albumin Level 3.6 gm/dl (3.4-5.0); BUN Creatinine Ratio 20.8 (10-20); Bilirubin,Total 0.9 mg/dl (0.2-1.0); Calcium 8.8 mg/dl (8.5-10.1); Creatinine Clr Calc Pharmacy 27.9 ml/min; Est GFR (African American) 32.6 ml/min; Est GFR (Non-African American) 28.1 ml/min; Globulin 2.9 gm/dl (2.5-4.0); Magnesium 1.6 mg/dl (1.7-2.4); Potassium 3.8 mmol/L (3.5-5.1); Total Protein 6.5 gm/dl (6.0-8.3)
[2021-05-07] MEDS: [UNRECOGNIZED DRUG - REMARK] SCH ×3 (07:51→23:00)
[2021-05-07] MEDS: CALCIUM 600MG + VIT D 400 IU TAB PO SCH (09:11)
[2021-05-07] MEDS: CEROVITE ADV FORMULA TAB PO SCH (09:11)
[2021-05-07] MEDS: PANTOprazole 40 MG TAB PO SCH (09:11)
[2021-05-07] MEDS: ATORVASTATIN 10 MG TAB PO SCH (09:11)
[2021-05-07] MEDS: FLUTICASONE FUROATE 100MCG 14 PUFFS/INHALER INH SCH (09:11)
[2021-05-07] MEDS: MAGNESIUM SULFATE / D5W 1 GM/100 ML BAG IV SCH ×2 (09:25→11:50)
--- NOTE | 2021-05-07 17:06 | Hospitalist Progress Note ---
Date of Service May 07, 2021 Assessment & Plan (1) Metabolic encephalopathy: Plan: 1. Fall. 1. Metabolic encephalopathy Questionable syncope; probably from urinary tract infection and also has COVID. Monitor in tele. Gentle fluids. Multiple imagings done at admission: CT CS/CXR/head CT/elbow x-ray/pelvis x- ray/shoulder x-ray times left/CT abdomen pelvis ---> No acute findings appreciated. At baseline, patient is alert to self, on and off confused and walks with walker. On examination oriented to self today, looking better than yesterday. PT/OT Cardio if concerns of arrhythmia over tele. Supportive management 2. COVID: Currently not requiring any oxygen. Patient is not vaccinated. We will monitor. Continue his home inhalers. 3. UTI: UA suggestive of UTI ER Started Rocephin 05/06 which will be continued and will follow the cultures. Admitting urine culture E. coli, follow sensitivity. #. EUGENIO /CKD Baseline creatinine around 1.4 Creatinine elevated to 2.3 on 05/06 Likely secondary to poor oral intake leading to prerenal etiology. Continue with IV fluid, monitor BMP daily. Minimal improvement in BMP today 4. Chronic obstructive pulmonary disease: Continue home inhalers and nebs p.r.n. 5. Liver cirrhosis and portal gastropathy: On omeprazole, we will monitor. Check ammonia levels, not on lactulose or diuretics. 6. Hyperlipidemia, on statin. 7. History of alcohol abuse, last drink was in 2012 as per the daughter. 8. History of tobacco, his last smoking was 2 years ago. 9. Severe dementia and agitation: Received dose of Ativan, Haldol and Zyprexa in ER. We will place him on IM Zyprexa p.r.n. and closely monitor. May need one-to-one. 10.. Gastroesophageal reflux disease, on omeprazole. 11. Acute kidney injury on chronic kidney disease stage III. Baseline creatinine stayed around 1.3-1.4, currently creatinine is 2.4, getting fluids. Try to Avoid nephrotoxins. follow repeat labs. 12. Deep venous thrombosis prophylaxis, placed on heparin subcu. DVT prophylaxis: Heparin DNR/DNI 05/07----> patient's daughter Tosin was given a phone call, she was given update on the current status of the patient, answered all her question, they wanted to take the patient home and are against any rehab or placement. They wanted to explore the hospice option, employment evaluator/case manager was consulted for the same and updated. Given advanced dementia worsening due to current acute insults on the background of requiring maximal assistance with activities of daily living, I agree with the idea of exploring hospice options. Admission and Anticipated Discharge Date Admission Date: May 06, 2021 Subjective Patient was lying in bed, on room air, oriented to self, mumbles and difficult to understand. Per RN he is doing better today. Overnight he tried to crawl out of his bed but no remi agitation. Per RN, patient is aspirating on foods and hence he is made n.p.o., add IV fluid to his regimen, speech to eval him. ROS n/a d/t congnition status. Physical Exam Physical Exam: GENERAL: oriented to self. NAD, on RA. HEENT: No pallor, no icterus. Pupils equal, round and reactive to light. Oral mucosa dry. NECK: No JVD, no neck masses. HEART: S1 and S2 heard. Regular rate and rhythm. No murmur, no gallop. RESPIRATORY SYSTEM: Normal AP diameter. No accessory muscle use. No wheezing, no crackles. Decreased breath sounds. ABDOMEN: Soft, bowel sounds present, nontender, no distention. CENTRAL NERVOUS SYSTEM: No facial droop. Speech is clear. Obeys simple commands. Moves extremities. EXTREMITIES: No edema, no erythema seen. Results & Data Results & Data ([facility]) Vital Signs (Past 12 Hours) Vital Signs Temp Pulse Resp BP Pulse Ox 05/07/21 15:03 36.4 C L 71 20 155/79 H 95 05/07/21 11:06 36.7 C 60 20 138/76 92 05/07/21 07:39 36.6 C 80 20 128/80 95
[2021-05-07] MEDS ORDERED: ACETAMINOPHEN 1,000 MG/100 ML VIAL IV PRN (21:35)
[2021-05-08] MEDS: SODIUM CHLORIDE 0.45 % 1,000 ML IV SCH (05:53)
[2021-05-08] MEDS: cefTRIAXone SODIUM 2,000 MG in DEXTROSE 5% 50 ML IV SCH (05:53)
[2021-05-08] MEDS: HEPARIN SOD 5,000 UNIT/0.5 ML VIAL SQ SCH ×2 (05:54→13:45)
[2021-05-08 07:39] LABS: BUN Creatinine Ratio 22.1 (10-20); Calcium 8.2 mg/dl (8.5-10.1); Creatinine Clr Calc Pharmacy 32.5 ml/min; Est GFR (African American) 39.1 ml/min; Est GFR (Non-African American) 33.7 ml/min; Potassium 3.3 mmol/L (3.5-5.1)
[2021-05-08] MEDS: [UNRECOGNIZED DRUG - REMARK] SCH (10:53)
[2021-05-08] MEDS: ATORVASTATIN 10 MG TAB PO SCH (10:55)
[2021-05-08] MEDS: CALCIUM 600MG + VIT D 400 IU TAB PO SCH (10:55)
[2021-05-08] MEDS: CEROVITE ADV FORMULA TAB PO SCH (10:56)
[2021-05-08] MEDS: FLUTICASONE FUROATE 100MCG 14 PUFFS/INHALER INH SCH (10:56)
[2021-05-08] MEDS: PANTOprazole 40 MG TAB PO SCH (10:56)
[2021-05-08] MEDS: POTASSIUM CHLORIDE / WTR 10 MEQ/100 ML PLCT IV SCH ×4 (12:13→15:57)
--- NOTE | 2021-05-08 14:06 | Fluoroscopy Report ---
MODIFIED BARIUM SWALLOW CLINICAL HISTORY: assess for aspiration COMPARISON STUDY: Modified barium swallow July 18, 2012. FLUOROSCOPY TIME: 3 minutes. TECHNIQUE: A modified barium swallow was performed in conjunction with Speech Pathology. The patient ingested varying consistencies of barium containing material. Video fluoroscopy was performed. FINDINGS: Several episodes of tracheal aspiration were noted with thin liquids. There was no aspirati on with mildly thick liquids, pudding consistency or crackers with paste. IMPRESSION: 1. Tracheal aspiration with thin liquids. No aspiration with remainder of the consistencies. 2. Full recommendations by Speech pathology to follow. ACT 112: Negative or not required by law. Electronically signed by: Vickey Hunter M.D. 05/08/2021 2:05 PM
--- NOTE | 2021-05-08 16:02 | Discharge Summary ---
Date of Service May 08, 2021 Admission HPI Per Admitting Provider HISTORY OF PRESENT ILLNESS: This is a 75-year-old male with past medical history significant for severe dementia, history of pancreatic cyst,COPD, liver cirrhosis, portal hypertensive gastropathy, GERD, stage III chronic kidney disease, history of collapsed vertebra of lumbar region, anemia who currently lives with the daughter, presents with the fall. Patient who lives with the granddaughter, but granddaughter is on vacation, for last few days he is living with his daughter. Daughter went outside for brief moment for her employment place,, when she came back he was found on the floor. They have cameras in the house,when checked he seemed fell down and could not get up. As per the ER, the EMS also reviewed the cameras and they felt that he might have had syncopal episode and was brought in here. The patient was agitated in ER, he was given Ativan, Haldol and Zyprexa to calm him down. Now slowly he is resting. He was found to have COVID positive and also UTI and his creatinine is 2.4, baseline in 04/2009 creatinine seems to be around 1.3-1.4. As per daughter, the patient's granddaughter also recently tested for COVID positive with whom he lives. He has chronic cough, usually his appetite is up and down but last 1 week, his appetite has been generally down, not eating much. No nausea, no vomiting. She does not think he has diarrhea. No complaining of any pain. No fevers at home. Patient is not COVID vaccinated. The patient is not able to answer any questions. Could not get any history from the patient. As per daughter he walks with the walker and eats regular food. He knows his name and generally does not know where he lives and does not recognize all of the family members and as per the daughter patient is DNR/DNI. ALLERGIES: No known drug allergies. PAST MEDICAL HISTORY: As mentioned above. PAST SURGICAL HISTORY: EGDs, EGD with endoscopic ultrasound, ERCP, inguinal orchiopexy inguinal approach outpatient as a child. MEDICATIONS: Patient is on alendronate 70 mg p.o. weekly, atorvastatin 10 mg p.o. daily, calcium plus vitamin D one tablet daily, Centrum Silver 1 tablet daily, DuoNeb inhalation q. 6 hours p.r.n., Combivent 1 puff inhalation q. 6 ho urs p.r.n., omeprazole 40 mg p.o. a.m. FAMILY HISTORY: Significant for father had colon cancer, mother has breast cancer, sister has breast cancer. SOCIAL HISTORY: , currently lives with the granddaughter. Used to smoke half pack a day for 40 years, quit smoking 2 years ago. History of alcohol abuse, quit in 2012 as per the daughter. No drug use. REVIEW OF SYMPTOMS: Unobtainable as patient is confused. Admission Exam Per Admitting Provider VITAL SIGNS: Temperature 36.6, pulse 89, respiratory rate 16, blood pressure 154/88, oxygen 95% on room air. HEENT: Pupils equal, round, and reactive to light. Atraumatic. NECK: No JVD. No neck masses. CARDIOVASCULAR: S1 and S2 heard. Regular rate and rhythm. No murmur, no gallop. RESPIRATORY SYSTEM: Normal AP diameter. No accessory muscle use. No wheezing, no crackles. ABDOMEN: Soft, bowel sounds present, nontender, no distention. CENTRAL NERVOUS SYSTEM: The patient is confused. Not answering any questions. Moves extremities. EXTREMITIES: No edema, no erythema. Principal Diagnosis Fall Metabolic encephalopathy COVID 19 infection UTI Discharge Exam GENERAL: oriented to self. NAD, on RA. HEENT: No pallor, no icterus. Pupils equal, round and reactive to light. Oral mucosa dry. NECK: No JVD, no neck masses. HEART: S1 and S2 heard. Regular rate and rhythm. No murmur, no gallop. RESPIRATORY SYSTEM: Normal AP diameter. No accessory muscle use. No wheezing, no crackles. Decreased breath sounds. ABDOMEN: Soft, bowel sounds present, nontender, no distention. CENTRAL NERVOUS SYSTEM: No facial droop. Speech is clear. Obeys simple commands. Moves extremities. EXTREMITIES: No edema, no erythema seen. Discharge Data Allergies Allergy/AdvReac Type Severity Reaction Status Date / Time No Known Allergies Allergy Verified 05/06/21 00:13 Consultations 05/06/21 04:49 ED Decision to Admit Stat Ordered Studies 05/05/21 23:54 CT cervical spine wo con Urgent CT head/brain wo con Urgent 05/06/21 00:05 CT thoracic spine wo con Urgent 05/06/21 00:59 CT abd pelvis wo con Urgent 05/08/21 13:00 FL video swallow Routine Hospital Course (1) Metabolic encephalopathy: 75-year-old male with past medical history significant for severe dementia, history of pancreatic cyst,COPD, liver cirrhosis, portal hypertensive gastropathy, GERD, stage III chronic kidney disease, history of collapsed vertebra of lumbar region, anemia who currently lives with the daughter, presented with the fall and confusion on 05/06 to our ED. He was managed for the followin. Fall. 1. Metabolic encephalopathy Questionable syncope; probably from urinary tract infection and also has COVID. Monitor in tele. Gentle fluids. Multiple imagings done at admission: CT CS/CXR/head CT/elbow x-ray/pelvis x- ray/shoulder x-ray times left/CT abdomen pelvis ---> No acute findings appreciated. At baseline, patient is alert to self, on and off confused and walks with walker. On examination pt remains confused today and unable to cooperate 2. COVID: Currently not requiring any oxygen. Patient is not vaccinated. Continue his home inhalers. 3. UTI: UA suggestive of UTI s/p 3 days of iv ATB #. EUGENIO /CKD Baseline creatinine around 1.4 Creatinine elevated to 2.3 on 05/06 Likely secondary to poor oral intake leading to prerenal etiology. BMP trending down, encourage oral intake as able. 4. Chronic obstructive pulmonary disease: Continue home inhalers and nebs p.r.n. 5. Liver cirrhosis and portal gastropathy: On omeprazole, we will monitor. Check ammonia levels, not on lactulose or diuretics. 6. Hyperlipidemia, on statin. 7. History of alcohol abuse, last drink was in 2012 as per the daughter. 8. History of tobacco, his last smoking was 2 years ago. 9. Severe dementia and agitation: Received dose of Ativan, Haldol and Zyprexa in ER. We will place him on IM Zyprexa p.r.n. and closely monitor. May need one-to-one. 10.. Gastroesophageal reflux disease, on omeprazole. 11. Acute kidney injury on chronic kidney disease stage III. Baseline creatinine stayed around 1.3-1.4, currently creatinine is 2.4, getting fluids. Try to Avoid nephrotoxins. follow repeat labs. 12. Deep venous thrombosis prophylaxis, placed on heparin subcu. DVT prophylaxis: Heparin DNR/DNI 05/07----> patient's daughter Tosin was given a phone call, she was given update on the current status of the patient, answered all her question, they w anted to take the patient home and are against any rehab or placement. They wanted to explore the hospice option, deployment manager was consulted for the same and updated. Given advanced dementia worsening due to current acute insults on the background of requiring maximal assistance with activities of daily living, I agree with the idea of exploring hospice options. Patient is being discharged to home with hospice with following instruction at the point of discharge: Patient being discharged to home with hospice. If you have any questions, please call us at the hospital [facility]. You have been discharged on lorazepam for as needed use for agitation until hospice facility is able to start taking care of you. Total Time Total Time Spent Total Time Spent (In Minutes): 35 Discharge Plan Discharge Items Patient Disposition: Hospice - Home Reason For Visit: Fall Discharge Diagnosis: Fall Metabolic encephalopathy COVID 19 infection UTI Activity: Resume your previous activity Non-emergency contact: Primary Care Provider Call non-emergency contact if: you have any medication questions Follow-up/Referrals: Jeffry Spaulding MD [Primary Care Provider] - Diet: Low Sodium (2gm) Diet Texture: Pureed (blended smooth) Liquid Consistency: [place] thick Diet Comment: Above are recs by speech therapy; but for quality of life can do any diet Addtl Attending Provider Instructions: Patient being discharged to home with hospice. If you have any questions, please call us at the hospital and [facility] hospitalist will be 24/ on-call. You have been discharged on lorazepam for as needed use for agitation until hospice facility is able to start taking care of you. Pending Studies at Discharge: No Stand-Alone Forms: My [facility] Medications and DC Order Prescriptions: New lorazepam 2 mg/mL concentrate 1 mg PO Q4H PRN (Reason: anxiety) Qty: 30 RF: 0 Continued Calcium 600 with Vitamin D3 600 mg(1,500mg) -400 unit tablet,chewable 1 tab PO QAM RF: 0 ipratropium-albuterol 0.5 mg-3 mg(2.5 mg base)/3 mL solution for nebulization 3 ml INH Q6H PRN (Reason: wheezing) Qty: 90 RF: 0 alendronate [Fosamax] 70 mg tablet 70 mg PO WK RF: 0 Centrum Silver 0.4-300-250 mg-mcg-mcg Tablet 1 tab PO QAM RF: 0 Combivent Respimat 20-100 mcg/actuation mist 1 puffs INH Q6H PRN (Reason: wheezing) Qty: 4 RF: 0 Hold Instructions: not taking omeprazole 40 mg Capsule,Delayed Release(Dr/Ec) 40 mg PO QAM RF: 0 atorvastatin 10 mg tablet 10 mg PO DAILY RF: 0 Discharge Orders: Discharge Order (Routine); Ordered 05/08/21 Ordered By: Deandra Tubbs Admission Data Admit Date/Time: 05/06/21 06:00 Attending Provider: Deandra Tubbs Admit Provider: Sukumar Huang Primary Care Provider: Jeffry Spaulding Other Providers: Sukumar Huang ; [facility]
== END 2021-05-08 16:54 | disposition hospice, home (50) | DRG 177 ==
LOC: ED 22:48 → EDINP 05-06 06:00 → SUATTDRO 05-06 06:00 → 2W 05-06 09:30